=== PATIENT | female | born 1940 | race Caucasian/White ===

== ENCOUNTER 2017-01-19 18:57 | Inpatient (IN) | payer MEDICARE ==
[~2017-01-19] VITALS: Ht 160 cm; Wt 88.5 kg
[~2017-01-19 18:57] MED LIST: AMLO5TAB2 PO; GABA600T PO; HYDR-3326 PO; WARF3TAB6 PO
--- NOTE | 2017-01-19 19:15 | NUR ---
PT BIB RA FROM HOME C/O "FRACTURED LEFT HIP" S/P GLF AT HOME FROM WHEELCHAIR. PEDAL PULSES PRESENT. ZULY +4 PITTING EDEMA IN LOWER EXTREMITIES. NAD NOTED. DENIES PAIN EXCEPT UPON MOVING. PT REPORTS SHE CANNOT MOVE L LEG HERSELF AND CANNOT AMBULATE. NO OTHER COMPLAINTS. IN ER BED 09.
[2017-01-19 19:29] LABS: BASOPHILS # (AUTO) 0.1 /CMM (0.0-0.2); BASOPHILS % (AUTO) 0.6 % (0.0-2.0); EOSINOPHILS # (AUTO) 0.2 /CMM (0.0-0.7); EOSINOPHILS % (AUTO) 2.4 % (0.0-6.0); HEMATOCRIT 43 % (33-45); HEMOGLOBIN 14.2 g/dL (11.5-14.8); LYMPHOCYTES # (AUTO) 1.4 /CMM (0.8-4.8); LYMPHOCYTES % (AUTO) 15.2 % (20.0-44.0); MEAN CORPUSCULAR HEMOGLOBIN 40 PG (26.0-33.0); MEAN CORPUSCULAR HGB CONC 33 g/dl (31.0-36.0); MEAN CORPUSCULAR VOLUME 120 fL (82-100); MONOCYTES # (AUTO) 0.9 /CMM (0.1-1.30); MONOCYTES % (AUTO) 9.7 % (2.0-12.0); NEUTROPHILS # (AUTO) 6.7 /CMM (1.8-8.9); NEUTROPHILS % (AUTO) 72.1 % (43.0-81.0); PLATELET COUNT (AUTO) 186 /CMM (150-450); RDW COEFFICIENT OF VARIATION 14.3 (11.5-15.0); RED BLOOD CELL COUNT(AUTO) 3.57 MIL/uL (4.0-5.2); WHITE BLOOD COUNT (AUTO) 9.3 K/uL (4.3-11.0)
[2017-01-19] MEDS ORDERED: ONDANSETRON HCL/PF 4 MG/2 ML VIAL IVP ONE (19:30)
[2017-01-19] MEDS ORDERED: MORPHINE SULFATE INJ 2 MG/ML DISP.SYRIN IV ONE (19:30)
--- NOTE | 2017-01-19 19:32 | NUR ---
pt denies need for pain medication at this time. denies pain when at rest. transported to [facility] in stable condition via stretcher
[2017-01-19 19:40] LABS: CALCIUM, SERUM 8.9 mg/dL (8.5-10.1); CREATININE 0.5 mg/dL (0.6-1.3)
[2017-01-19 19:44] LABS: INR 2.42 (0.87-1.13); PROTHROMBIN TIME 26.4 SECS (9.5-12.7)
[2017-01-19] MEDS ORDERED: ONDANSETRON HCL/PF 4 MG/2 ML VIAL ONE (20:00)
[2017-01-19] MEDS ORDERED: MORPHINE SULFATE INJ 4 MG/ML DISP.SYRIN ONE (20:00)
--- NOTE | 2017-01-19 20:14 | NUR ---
ARTUR KHAN AT BEDSIDE
--- NOTE | 2017-01-19 20:15 | NUR ---
CALLED HIGHWAY MAINTENANCE WORKER ORTHO.
[2017-01-19 20:44] LABS: EOSINOPHILS % (MANUAL) 2 % (0-4); LYMPHOCYTES % (MANUAL) 16 % (16-48); MONOCYTES % (MANUAL) 4 % (0-11.0); NEUTROPHILS % (MANUAL) 78 (42-76); PLATELET ESTIMATE ADEQUATE
--- NOTE | 2017-01-19 20:44 | NUR ---
REPORT CALLED TO MS RN. PT READY FOR TRANSPORT TO 2ND FLOOR.
[2017-01-19 21:00] VITALS: BP 100/60
[2017-01-19] MEDS ORDERED: ACETAMINOPHEN 325 MG TABLET PO PRN (21:00)
[2017-01-19] MEDS ORDERED: MORPHINE SULFATE INJ 2 MG/ML DISP.SYRIN IV PRN (21:00)
[2017-01-19] MEDS ORDERED: ZOLPIDEM TARTRATE 5 MG TABLET PO PRN (21:00)
[2017-01-19] MEDS ORDERED: Z GUARD REMEDY 2 OZ OINT TP PRN (21:00)
[2017-01-19] MEDS ORDERED: MAGNESIUM HYDROXIDE 30 ML UDC PO PRN (21:00)
[2017-01-19] MEDS ORDERED: ONDANSETRON HCL/PF 4 MG/2 ML VIAL IVP PRN (21:00)
[2017-01-19] MEDS ORDERED: MAG HYDROX/AL HYDROX/SIMETH 30 ML UDC PO PRN (21:00)
--- NOTE | 2017-01-19 21:00 | NUR ---
MS MUSIC EDUCATION DIRECTOR NOTES ADMITTED THIS 76 Y.O. FEMALE PER BERNADETTE FROM ER UNDER THE SERVICE ARTUR TRUJILLO,WITH DIAGNOSIS OF LEFT HIP SUB TROCHANTERIC FRACTURE,C/O ACUTE LEFT HIP PAIN,CLAIMED SHE BUMP HER LEFT HIP HARD ON THE WALL,NO FALL.NON AMBULATORY,WHEELCHAIR BOUND,LEAVES ALONE AND JUST BEING FOLLOWED BY NEIGHBOR,HELP TO GET OUT OF BED TO WHEELCHAIR IN THE MORNING.ALERT,ORIENTED X3-4,ABLE TO VERBALIZED NEEDS,WITH LOTS OF SKIN ISSUES,SEE SKIN ASSESSMENT.BILATERAL FOOT WITH +3-4 EDEMA NOTED.SALINE LOCK LEFT AC INTACT AND PATENT.INCONTINENT OF URINE.STILL ABLE TO FEEL TOUCH ON BOTH LOWER EXTREMITIES,ABLE TO WIGGLE TOES.SHE'S ON VEGAN DIET,DENIES ANY EPISODE OF ASPIRATION.WILL CONTINUE TO MONITOR STATUS.CALL LIGHT IN REACH,NEEDS ANTICIPATED.
[2017-01-19] MEDS ORDERED: IV SET PRIMARY PUMP SET 1 EA INFUS.SET MC ONE (21:40)
[2017-01-19] MEDS ORDERED: PANTOPRAZOLE 40 MG VIAL ONE (21:44)
--- NOTE | 2017-01-19 21:45 | NUR ---
MS RN NOTES STARTED ON NS 1LITER AT 75ML/HR RATE INFUSING VIA IV PUMP.
--- NOTE | 2017-01-19 21:45 | NUR ---
MS RN NOTES STARTED ON PROTONIX 4OMG IVP ORDERED.INSTRUCTED NPO ORDERED.
[2017-01-19] MEDS: IV NS 0.9% 1,000 ML IV PRN (21:46)
[2017-01-19] MEDS: PANTOPRAZOLE 40 MG VIAL IV SCH (21:48)
[2017-01-19] MEDS: MORPHINE SULFATE INJ 2 MG/ML DISP.SYRIN IV PRN (23:33)
--- NOTE | 2017-01-19 23:33 | NUR ---
MS RN NOTES PAIN MANAGEMENT C/O LEFT HIP PAIN 7/10 ON PAIN SCALE,MEDICATED WITH MORPHINE 2MG IVP ORDERED
[2017-01-20] VITALS (11 sets, daily range): BP systolic 126–149; BP diastolic 69–83
--- NOTE | 2017-01-20 01:00 | NUR ---
MS RN NOTES SLEEPING,KEPT WARM AND COMFORTABLE.
--- NOTE | 2017-01-20 05:36 | NUR ---
MS RN NOTES GOT AN ORDER FROM TACOMA ACNP,TO INSERT LIU CATHETER DUE TO INABILITY TO TURN FROM SIDE TO SIDE FOR DIAPER CHANGE DUE TO LEFT SUBTROCHANTERIC FRACTURE. EXPLAINED PROCEDURE TO PATIENT BUT REFUSED.EXPLAINED RISK AND BENEFITS BUT STILL REFUSED.
--- NOTE | 2017-01-20 05:45 | NUR ---
MS RN NOTES MORNING CARE RENDERED,TOLERATED WELL.
[2017-01-20] MEDS: MORPHINE SULFATE INJ 2 MG/ML DISP.SYRIN IV PRN ×5 (06:02→23:52)
--- NOTE | 2017-01-20 06:02 | NUR ---
MS RN NOTES PAIN MANAGEMENT C/O LEFT HIP PAIN 7/10 ON PAIN SCALE,MEDICATED WITH MORPHINE 2MG IVP ORDERED.WILL MONITOR FOR RELIEF.
--- NOTE | 2017-01-20 06:13 | NUR ---
MS RN NOTES KEPT NPO TILL SEEN BY ORTHOPEDIST.PAIN MANAGEMENT TOLERATED WELL AND EFFECTIVE.ALL NEEDS ATTENDED,CALL LIGHT IN REACH,BED ON LOWEST POSITION AND LOCKED.WILL ENDORSE TO DAY NURSE FOR JAY.
[2017-01-20 06:49] LABS: BASOPHILS % (AUTO) 0.6 % (0.0-2.0); EOSINOPHILS # (AUTO) 0.3 /CMM (0.0-0.7); EOSINOPHILS % (AUTO) 4.6 % (0.0-6.0); HEMATOCRIT 37 % (33-45); HEMOGLOBIN 12.3 g/dL (11.5-14.8); LYMPHOCYTES # (AUTO) 1.6 /CMM (0.8-4.8); LYMPHOCYTES % (AUTO) 22.1 % (20.0-44.0); MEAN CORPUSCULAR HEMOGLOBIN 40 PG (26.0-33.0); MEAN CORPUSCULAR HGB CONC 33 g/dl (31.0-36.0); MEAN CORPUSCULAR VOLUME 121 fL (82-100); MONOCYTES % (AUTO) 13.2 % (2.0-12.0); NEUTROPHILS # (AUTO) 4.4 /CMM (1.8-8.9); NEUTROPHILS % (AUTO) 59.5 % (43.0-81.0); PLATELET COUNT (AUTO) 190 /CMM (150-450); RDW COEFFICIENT OF VARIATION 15.1 (11.5-15.0); RED BLOOD CELL COUNT(AUTO) 3.03 MIL/uL (4.0-5.2); WHITE BLOOD COUNT (AUTO) 7.4 K/uL (4.3-11.0)
--- NOTE | 2017-01-20 07:10 | NUR ---
MS RN NOTES RECEIVED PATIENT IN BED, AWAKE. A/O X3. ON OXYGEN AT 3L/MIN VIA NC, NO SOB NOTED. PATIENT IS ON NPO STATUS, POSSIBLE SURGERY TODAY FOR LEFT HIP FRACTURE. APPEARS COMFORTABLE IN BED, NO C/O PAIN AT THIS TIME. CALL LIGHT WITHIN REACH. BED LOW AND LOCKED, SIDE RAILS UP X2. WILL CONT TO MONITOR.
--- NOTE | 2017-01-20 07:20 | NUR ---
RECEIVED PHONE CALLS FROM DR. LOZADA. PATIENT TO BE SCHEDULED SURGERY EARLY TODAY. WILL INFORM [facility] TO CLEAR PATIENT FOR SURGERY.
[2017-01-20 07:24] LABS: CALCIUM, SERUM 8.2 mg/dL (8.5-10.1); CREATININE 0.2 mg/dL (0.6-1.3); MAGNESIUM 1.5 mg/dL (1.8-2.4); POTASSIUM 3.9 mmol/L (3.5-5.1)
[2017-01-20] MEDS ORDERED: PANTOPRAZOLE 40 MG TABLET.DR PO SCH (07:30)
--- NOTE | 2017-01-20 07:30 | NUR ---
DR. MIA FISCHER STATED HE WILL SEE THE PATIENT. PER PATIENT SHE WANTS TO SPEAK WITH DR. LOZADA(ORTHO) ALSO.
--- NOTE | 2017-01-20 08:14 | NUR ---
PATIENT IS SEEN BY DR. LOZADA TODAY. MD SPEAK TO THE PATIENT. PER MD HE WILL COMMUNICATE WITH THE CARE TEAM.
[2017-01-20] MEDS ORDERED: CITA40TA11 PO (08:27)
[2017-01-20] MEDS ORDERED: WARF2.5T6 PO (08:27)
[2017-01-20] MEDS ORDERED: IPRA3AMP IH (08:27)
[2017-01-20 08:30] LABS: ANISOCYTOSIS 3+; BAND % (MANUAL) 1 % (0.0-5.0); EOSINOPHILS % (MANUAL) 6 % (0-4); LYMPHOCYTES % (MANUAL) 21 % (16-48); MONOCYTES % (MANUAL) 8 % (0-11.0); NEUTROPHILS % (MANUAL) 64 (42-76); PLATELET ESTIMATE ADEQUATE
--- NOTE | 2017-01-20 09:09 | NUR ---
PATIENT IS SEEN BY DR. JANA KRISHNAMURTHY TODAY. FOR CARDIO CONSULT PRIOR POSSIBLE SURGERY TODAY. WILL INFORM DR. JANA KRISHNAMURTHY AFTER CARDIO CONSULT.
--- NOTE | 2017-01-20 10:01 | NUR ---
EKG REPORTED TO
[2017-01-20] MEDS ORDERED: BACITRACIN 50000 UNITS/VIAL ONE (10:27)
[2017-01-20] MEDS ORDERED: BUPIVACAINE 0.5 % PF 150 MG/30 ML VIAL ONE (10:27)
[2017-01-20] MEDS: IV NS 0.9% 1,000 ML IV PRN (10:32)
[2017-01-20] MEDS ORDERED: PLATELET IV SET 1 EA INFUS.SET MC ONE (10:37)
--- NOTE | 2017-01-20 11:11 | NUR ---
BLOOD DRAWN FOR PT/INR STAT. PATIENT IN BED, V/S TAKEN AND RECORDED. PATIENT APPEARS COMFORTABLE IN BED, NO SOB NOTED. FIRST UNIT FFP ADMINISTERED. WILL CONT TO MONITOR PATIENT CLOSELY.
[2017-01-20 11:34] LABS: INR 2.01 (0.87-1.13); PROTHROMBIN TIME 22.5 SECS (9.5-12.7)
--- NOTE | 2017-01-20 11:39 | NUR ---
V/S REMAINS STABLE. 2ND FPP ADMINISTERED. WILL CONT TO MONITOR PATIENT CLOSELY.
--- NOTE | 2017-01-20 12:06 | NUR ---
STILL ELEVATED INR 2.01 PT 22.5. PL[address]MA INFUSING. DR. LOZADA SPOKE TO THE PATIENT, PER MD SURGERY WOULD BE ON SUNDAY AND PATIENT CAN HAVE DIET NOW. NOTIFIED DR. JANA KRISHNAMURTHY.
--- NOTE | 2017-01-20 12:55 | NUR ---
V/S TAKEN AND RECORDED. PATIENT REMAINS STABLE. 3RD UNIT OF PLASMA ADMINISTERED.
--- NOTE | 2017-01-20 13:37 | NUR ---
V/S REMAINS STABLE 4TH UNIT (LAST BAG) OF PLASMA ADMINISTERED. WILL CONT TO MONITOR PATIENT. CLOSELY.
[2017-01-20] MEDS ORDERED: SECONDARY IV SET 1 EA INFUS.SET MC ONE (13:50)
--- NOTE | 2017-01-20 14:03 | NUR ---
END ON FFP TRANSFUSION, PATIENT TOLERATED WELL WITH NO ADVERSE SIDE EFFECT NOTED. WILL CONT TO MONITOR.
[2017-01-20] MEDS: Magnesium 1GM/D5W 100ML PREMIX 100 ML IV SCH ×2 (14:30→15:30)
--- NOTE | 2017-01-20 15:15 | NUR ---
PT STATES SHE HAS NO LT FOOT PAIN. SHE STATES SHE DOES NOT NEED FOOT X-RAY. SHE SAYS HER LT HIP IS HURTING. PT'S NURSE WAS INFORMED.
--- NOTE | 2017-01-20 18:31 | NUR ---
RECEIVED PHONE CALL FROM DR. LOZADA, ORDERED TO CHECK INR NOW THEN CALL HIM WITH RESULT, NOTED AND ACKNOWLEDGED.
--- NOTE | 2017-01-20 18:52 | NUR ---
MS RN CLOSING NOTES PATIENT IN BED, APPEARS COMFORTABLE, NOT IN DISTRESS. NO C/O PAIN AT THIS TIME. IV IN LEFT AC G18 PATENT AND INTACT, FLUSHES WELL. IV NS INFUSING AT 75ML/HR, PATIENT TOLERATING WELL. PATIENT WILL BE NPO MN, FOR SURGERY IN AM UNDER DR. LOZADA. CONSENT SIGNED AND PLACE IN THE CHART. WILL ENDORSE TO WIRE COATING OPERATOR METAL RN FOR CONTINUITY OF CARE.
--- NOTE | 2017-01-20 19:10 | NUR ---
MS RN NOTES: PATIENT ON NC 3LPM AND IS TOLERATING WELL. WILL CONTINUE TO MONITOR PT.
--- NOTE | 2017-01-20 19:10 | NUR ---
MS LIZZETH OPENING NOTES: RECEIVED PATIENT IN BED AWAKE WITH HOB ELEVATED. PT A/O X3. PT REPORTED OF R SHOULDER PAIN 04/09. CALL LIGHT WITHIN PATIENT'S REACH. BED KEPT IN LOCKED, LOWEST POSITION, AND SIDE RAILS X2 UP. IV ON L AC #18 AND IS PATENT AND INTACT. KEPT SKIN CLEAN, DRY, AND COMFORTABLE. PT REFUSED LIU CATHETER INSERTION. EDUCATION WAS PROVIDED TO THE PATIENT BUT STILL REFUSED. INFORMED PATIENT THAT SHE IS NPO POST MIDNIGHT. WILL CONTINUE TO MONITOR PT. Addendum: 01/20/17 at 4692 by ADELE ASTUDILLO RN WAS ENDORSED FROM DAY SHIFT NURSE THAT PATIENT RECEIVED 4 UNITS OF FRESH FROZEN PLASMA.
[2017-01-20 19:11] LABS: INR 1.24 (0.87-1.13); PROTHROMBIN TIME 13.5 SECS (9.5-12.7)
--- NOTE | 2017-01-20 19:25 | NUR ---
MS RN NOTES: CONTACTED DR LOZADA AT [phone] RELAYED RESULTS OF LATEST PT INR, PT 13.5 AND INR 1.24, MD STATED "OKAY". WILL HAVE SURGERY TOMORROW, OBTAIN CONSENT FOR LEFT HIP INTRAMEDULLAR NIDA, NPO POST MN.
--- NOTE | 2017-01-20 19:26 | NUR ---
MS RN NOTES: CONTACTED PT'S DPOA CHELSEY DÍAZ, OBTAINED CONSENT FOR LEFT HIP INTRAMEDULLARY NIDA, INFORMED SURGERY FOR AM BY DR LOZADA, PT'S DPOA GIVING FULL CONSENT FOR THE PROCEDURE WELL BLOOD TRANSFUSION, ANESTHESIA. TELEPHONE CONSENT WITNESS/COSIGNED BY MERCY MOREAU
--- NOTE | 2017-01-20 19:50 | NUR ---
MS RN NOTES: PATIENT REFUSES TO BE TURNED AND REPOSITIONED AT THIS TIME.
--- NOTE | 2017-01-20 19:50 | NUR ---
MS RN NOTES: PATIENT COMPLAINED OF 7/10 PAIN ON R SHOULDER. MORPHINE 2MG IV WAS GIVEN. WILL CONTINUE TO MONITOR PT.
[2017-01-20] MEDS: PANTOPRAZOLE 40 MG VIAL IV SCH (20:50)
--- NOTE | 2017-01-20 21:56 | NUR ---
MS RN NOTES: PATIENT WAS GIVEN TYLENOL 650MG PO. WILL CONTINUE TO MONITOR PT.
--- NOTE | 2017-01-20 23:52 | NUR ---
MS RN NOTES: PT COMPLAINED OF 6/10 R SHOULDER PAIN. BP WAS 121/79 HR 71, RR 16, AND PULSE OX WAS 95%. PATIENT WAS GIVEN MORPHINE 2MG IV. WILL CONTINUE TO MONITOR PT.
[2017-01-21] VITALS (14 sets, daily range): BP systolic 123–157; BP diastolic 65–91
--- NOTE | 2017-01-21 | NUR ---
MS RN NOTES: PT REFUSED TO BE REPOSITION AT THIS TIME, EDUCATION PROVIDED TO THE PT, REGARDING RISK AND BENEFITS
--- NOTE | 2017-01-21 02:00 | NUR ---
MS RN NOTES: PT REFUSED TO BE REPOSITION EDUCATE PT REGARDING RISK AND BENEFITS
[2017-01-21] MEDS: IV NS 0.9% 1,000 ML IV PRN (02:30)
--- NOTE | 2017-01-21 04:00 | NUR ---
MS RN NOTES: PT REFUSED TO BE REPOSITION AT THIS TIME, EDUCATION PROVIDED TO THE PT, REGARDING RISK AND BENEFITS
[2017-01-21] MEDS: MORPHINE SULFATE INJ 2 MG/ML DISP.SYRIN IV PRN ×4 (06:10→23:16)
--- NOTE | 2017-01-21 06:10 | NUR ---
MS RN NOTES: PT COMPLAINED OF 6/10 R SHOULDER PAIN. BP WAS 154/91 HR 79, RR 18, AND PULSE OX 95%. PT RECEIVED MORPHINE 2MG IV. WILL CONTINUE TO MONITOR.
--- NOTE | 2017-01-21 06:48 | NUR ---
MS RN CLOSING NOTES: ALL NEEDS WERE ATTENDED. PATIENT IN BED ASLEEP. NO SIGNS OR SYMPTOMS OF DISTRESS NOTED. NO SOB NOTED. PT REFUSED LIU CATHETER. EXPLAINED RISKS AND BENEFITS AND PT STILL REFUSED. IV IN LEFT AC G18 AND IS PATENT AND INTACT. IV NS INFUSING AT 75ML/HR AND PATIENT TOLERATING WELL. PT ON 3LPM VIA NC AND IS TOLERATING WELL. PATIENT IS NPO SINCE MIDNIGHT FOR SURGERY THIS AM UNDER DR. LOZADA. CONSENT SIGNED AND PLACED IN THE CHART. BED KEPT IN LOCKED, LOWEST POSITION, AND SIDE RAILS X2 UP. KEPT CLEAN, DRY, AND COMFORTABLE. WILL ENDORSE TO DAY SHIFT NURSE FOR CONTINUITY OF CARE.
[2017-01-21 07:10] LABS: INR 1.24 (0.87-1.13); PROTHROMBIN TIME 13.5 SECS (9.5-12.7)
[2017-01-21 07:27] LABS: CALCIUM, SERUM 8.3 mg/dL (8.5-10.1); CREATININE 0.2 mg/dL (0.6-1.3); MAGNESIUM 1.8 mg/dL (1.8-2.4); POTASSIUM 3.8 mmol/L (3.5-5.1)
--- NOTE | 2017-01-21 07:30 | NUR ---
MS/skimmer reverberatory Patient taken to operating room, chart with patient.
[2017-01-21] MEDS ORDERED: BACITRACIN 50000 UNITS/VIAL ONE ×2 (07:55)
[2017-01-21] MEDS ORDERED: BUPIVACAINE 0.5 % PF 150 MG/30 ML VIAL ONE (07:55)
[2017-01-21] MEDS ORDERED: ALBUTEROL FS 2.5 MG/3 ML VIAL.NEB ONE ×2 (08:02→10:49)
[2017-01-21] MEDS ORDERED: CLINDAMYCIN 900 MG/6 ML VIAL ONE (08:06)
[2017-01-21] MEDS ORDERED: MIDAZOLAM HCL 2 MG/2ML VIAL ONE (08:06)
[2017-01-21] MEDS ORDERED: FENTANYL PF 100MCG/2ML AMPUL ONE (08:06)
[2017-01-21] MEDS ORDERED: IPRATROPIUM NEB FS 0.5 MG/2.5 ML AMPUL.NEB ONE ×2 (08:11→10:49)
[2017-01-21] MEDS: ALBUTEROL FS 2.5 MG/3 ML VIAL.NEB NEB PRN ×2 (08:30→10:59)
[2017-01-21] MEDS: IPRATROPIUM NEB FS 0.5 MG/2.5 ML AMPUL.NEB NEB PRN ×2 (08:30→10:59)
[2017-01-21] MEDS ORDERED: THROMBIN (BOVINE) 5,000 UNITS VIAL TP ONE (09:15)
[2017-01-21] MEDS ORDERED: CELLULOSE,OXIDIZED 1 EACH EACH MC ONE (09:15)
[2017-01-21] MEDS ORDERED: GELATIN SPONGE,ABSORBABLE 1 EA SPONGE TP ONE (09:15)
[2017-01-21] MEDS ORDERED: CELLULOSE,OXIDIZED 1 EA PACK MC ONE (09:16)
[2017-01-21] MEDS ORDERED: BLOOD IV SET 1 EA INFUS.SET MC ONE ×2 (09:20→11:16)
[2017-01-21] MEDS ORDERED: TRANEXAMIC ACID 3,000 MG in SODIUM CHLORIDE IRRIG SOLUTION 70 ML IR ONE (09:30)
--- NOTE | 2017-01-21 09:50 | NUR ---
MS/RN Labs Morning labs reviewed: -PT 13.5 -INR 1.24 -PTT 32
[2017-01-21] MEDS ORDERED: MEPERIDINE HCL/PF 50 MG/ML DISP.SYRIN ONE (10:24)
--- NOTE | 2017-01-21 11:15 | NUR ---
MS/RN Back from OR Patient received back from OR. Vital signs upon return stable, saturation on 3l 95%, patient encouraged to take deep breaths to enable proper lung expansion. HHN X2 administered in recovery room. Surgical incision clean and dry, no oozing noted. One unit of PRBC transfused during surgery, one further unit to be given and then labs to be drawn for H&H. if Hb <9, further unit of blood to be ordered. Patient reoriented to surroundings, call light within reach, will continue to monitor.
[2017-01-21] MEDS ORDERED: IV NS 0.9% 250 ML IV ONE ×2 (11:17→21:21)
--- NOTE | 2017-01-21 11:45 | NUR ---
MS/RN Blood bank Second unit of blood ready to be transfused. IV normal saline hung in preparation.
--- NOTE | 2017-01-21 12:15 | NUR ---
MS/RN Blood transfusion One unit blood transfusion in progress. Blood verified by two RN's. Vital signs recorded as per protocol, all within normal range for patient. Will continue to monitor.
--- NOTE | 2017-01-21 12:45 | NUR ---
MS/RN Vital signs Vital signs remain stable throught out blood transfusion thus far, will continue to monitor.
--- NOTE | 2017-01-21 15:00 | NUR ---
MS/RN Home medications Home medication list sent to Dr Nguyen to obtain order to continue home meds. Await response.
--- NOTE | 2017-01-21 15:15 | NUR ---
MS/RN Dr Nguyen Call received from Dr Nguyen - CBC to be ordered post transfusion and order given for bi-pap at night. Nursing accounting supervisor called for TD bed.
--- NOTE | 2017-01-21 15:53 | NUR ---
MS/RN Blood transfusion completed Blood transfusion completed, vital signs remained stable throughout.
--- NOTE | 2017-01-21 15:55 | NUR ---
MS/RN Bed assignment Per nursing melt house supervisor, patient to be transferred to Tele TD, room 107 after change of shift.
[2017-01-21 16:10] LABS: BASOPHILS % (AUTO) 0.4 % (0.0-2.0); EOSINOPHILS # (AUTO) 0.3 /CMM (0.0-0.7); EOSINOPHILS % (AUTO) 3.4 % (0.0-6.0); HEMATOCRIT 36 % (33-45); HEMOGLOBIN 11.8 g/dL (11.5-14.8); LYMPHOCYTES # (AUTO) 1.2 /CMM (0.8-4.8); LYMPHOCYTES % (AUTO) 15.1 % (20.0-44.0); MEAN CORPUSCULAR HEMOGLOBIN 40 PG (26.0-33.0); MEAN CORPUSCULAR HGB CONC 33 g/dl (31.0-36.0); MEAN CORPUSCULAR VOLUME 122 fL (82-100); MONOCYTES # (AUTO) 1.1 /CMM (0.1-1.30); MONOCYTES % (AUTO) 13.7 % (2.0-12.0); NEUTROPHILS # (AUTO) 5.3 /CMM (1.8-8.9); NEUTROPHILS % (AUTO) 67.4 % (43.0-81.0); PLATELET COUNT (AUTO) 182 /CMM (150-450); RDW COEFFICIENT OF VARIATION 15.3 (11.5-15.0); RED BLOOD CELL COUNT(AUTO) 2.93 MIL/uL (4.0-5.2); WHITE BLOOD COUNT (AUTO) 7.8 K/uL (4.3-11.0)
[2017-01-21] MEDS ORDERED: IPRATROPIUM NEB FS 0.5 MG/2.5 ML AMPUL.NEB NEB PRN (17:30)
[2017-01-21] MEDS ORDERED: Medication Not On Formulary EA (Ipratropium/Albuterol Sulfate (Duoneb 2.5-0.5 Mg/3 Ml So IH PRN (17:30)
[2017-01-21] MEDS ORDERED: HYDROCODONE/APAP 5/325MG 1 EACH TABLET PO PRN (17:30)
[2017-01-21] MEDS ORDERED: ALBUTEROL FS 2.5 MG/3 ML VIAL.NEB NEB PRN (17:30)
[2017-01-21 17:52] LABS: ANISOCYTOSIS 1+; BAND % (MANUAL) 1 % (0.0-5.0); EOSINOPHILS % (MANUAL) 4 % (0-4); LYMPHOCYTES % (MANUAL) 10 % (16-48); MONOCYTES % (MANUAL) 12 % (0-11.0); NEUTROPHILS % (MANUAL) 73 (42-76); PLATELET ESTIMATE ADEQUATE
--- NOTE | 2017-01-21 18:22 | NUR ---
MS/RN End note Lab called to enquire as to the results of CBC and H&H as order history is showing complete but no results are showing in emr. Per Effie in lab, blood was not drawn, as CBC was not drawn in morning, and they had an extra tube of blood, the afternoon CBC was run using blood from morning. Explained to tech that the reason for requesting this test was to check H&H following surgery, was told that floor should of been called to make sure that this was okay. Floor was not called, therefore test reordered as stat. Awaiting tech to draw blood and results. Vital signs have remained stable post op, now taking oral fluids and diet. IV heplocked. Will endorse to brine tank operator and transfer to TD.
[2017-01-21 18:36] LABS: BASOPHILS # (AUTO) 0.1 /CMM (0.0-0.2); BASOPHILS % (AUTO) 0.4 % (0.0-2.0); HEMATOCRIT 34 % (33-45); LYMPHOCYTES # (AUTO) 0.7 /CMM (0.8-4.8); LYMPHOCYTES % (AUTO) 5.6 % (20.0-44.0); MEAN CORPUSCULAR HEMOGLOBIN 39 PG (26.0-33.0); MEAN CORPUSCULAR HGB CONC 35 g/dl (31.0-36.0); MEAN CORPUSCULAR VOLUME 111 fL (82-100); MONOCYTES # (AUTO) 1.2 /CMM (0.1-1.30); MONOCYTES % (AUTO) 9.4 % (2.0-12.0); NEUTROPHILS # (AUTO) 10.6 /CMM (1.8-8.9); NEUTROPHILS % (AUTO) 84.6 % (43.0-81.0); PLATELET COUNT (AUTO) 156 /CMM (150-450); RDW COEFFICIENT OF VARIATION 22.4 (11.5-15.0); RED BLOOD CELL COUNT(AUTO) 3.09 MIL/uL (4.0-5.2); WHITE BLOOD COUNT (AUTO) 12.6 K/uL (4.3-11.0)
--- NOTE | 2017-01-21 19:30 | NUR ---
MS/RN OPENING NOTES PT AWAKE, A/OX3. CURRENTLY ON 3LPM O2 VIA NC, NO S/S OF DISTRESS. DENIES SOB AT THIS TIME. PT TO BE TRANSFERRED TO [facility] FOR BIPAP. PT AWARE. NOTES PAIN TO BE 5/10 TO LEFT HIP. BREATHING EVEN AND UNLABORED. BED IN LOW/LOCKED POSITION WITH CALL LIGHT IN REACH. WILL CONTINUE TO MONITOR
--- NOTE | 2017-01-21 20:20 | NUR ---
MS/RN NOTES REPORT GIVEN TO NURSE IN [facility] FOR TRANSFER.
--- NOTE | 2017-01-21 20:49 | NUR ---
MS/RN NOTES PT TRANSFERRED TO [facility] ROOM 107 WITH ASSISTANT PROFESSOR OF PHILOSOPHY IN STABLE CONDITION. PT RECEIVED BY RNJOSÉ MIGUEL. BELONGINGS AND CHART SENT DOWN WITH PT.
[2017-01-21] MEDS: HYDROCODONE/APAP 5/325MG 1 EACH TABLET PO PRN (21:14)
[2017-01-21] MEDS: PANTOPRAZOLE 40 MG VIAL IV SCH (21:14)
[2017-01-21] MEDS: CLINDAMYCIN 900 MG in IV D5W 50 ML IV SCH (21:14)
[2017-01-21] MEDS ORDERED: IV SET PRIMARY PUMP SET 1 EA INFUS.SET MC ONE (21:21)
[2017-01-21] MEDS ORDERED: SECONDARY IV SET 1 EA INFUS.SET MC ONE (21:21)
--- NOTE | 2017-01-21 23:52 | NUR ---
PLACED ON NOC BIPAP. RN NOTIFIED.
[2017-01-22] VITALS: BP 120/82
[2017-01-22 04:00] VITALS: BP 151/80
--- NOTE | 2017-01-22 04:15 | NUR ---
PT TAKEN OFF BIPAP PER REQUEST. PLACED ON 3L NC
[2017-01-22] MEDS: MORPHINE SULFATE INJ 2 MG/ML DISP.SYRIN IV PRN ×5 (04:29→21:46)
[2017-01-22 06:19] LABS: CALCIUM, SERUM 7.9 mg/dL (8.5-10.1); CREATININE 0.2 mg/dL (0.6-1.3); POTASSIUM 3.8 mmol/L (3.5-5.1)
[2017-01-22] MEDS: HYDROCODONE/APAP 5/325MG 1 EACH TABLET PO PRN ×4 (06:51→22:36)
[2017-01-22 08:00] VITALS: BP 145/77
[2017-01-22] MEDS: CLINDAMYCIN 900 MG in IV D5W 50 ML IV SCH (08:54)
[2017-01-22] MEDS: AMLODIPINE BESYLATE 5 MG TABLET PO SCH (08:55)
[2017-01-22] MEDS ORDERED: CITALOPRAM HYDROBROMIDE 20 MG TABLET PO SCH (09:00)
--- NOTE | 2017-01-22 09:00 | NUR ---
Refused Repositioning Patient complaining of pain on the right knee and refusing repositioning. Paged Hair Lopez regarding patient complain of right knee pain. Awaits response.
[2017-01-22 12:00] VITALS: BP 138/69
--- NOTE | 2017-01-22 13:00 | NUR ---
Morphine 0830 Morphine done 2mg given but missed charted.
--- NOTE | 2017-01-22 13:36 | NUR ---
WOUND CARE CONSULT: PT REFUSED SKIN ASSESSMENT. PT ON MICHOACANO ISOFLEX LOW AIRLOSS BED. PT TO BE TURNED AND REPOSITIONED EVERY 2 HRS PT CONDITION PERMITS, HEELS FLOATED. DISCUSSED SKIN PROTECTION WITH NURSING STAFF. DAVID SCORE IS 11. WILL SEE PT PT CONDITION PERMITS. MD IN AGREEMENT WITH PLAN OF CARE.
[2017-01-22 16:00] VITALS: BP_SYST 137; BP_DIAS 69; BP_DIAS 77
[2017-01-22] MEDS ORDERED: ENOXAPARIN SODIUM 40 MG/0.4 ML DISP.SYRIN SQ SCH (17:00)
[2017-01-22 17:12] LABS: INR 1.47 (0.87-1.13); PROTHROMBIN TIME 16.1 SECS (9.5-12.7)
[2017-01-22] MEDS: WARFARIN SODIUM 5 MG TABLET PO SCH (17:54)
[2017-01-22 20:00] VITALS: BP 138/76
--- NOTE | 2017-01-22 20:33 | NUR ---
received pt from day shift, a/o x4, follows commands, A fib, controlled, on 3L NC, sat well, lungs congested, BL foot pitting edema, tolerates diet, f/c low output, MD aware, BL leg DVT on Coumadin, no bleeding noted, L leg s/p ORIF, dressing intact, no s/s of infection noted, pt turned and repositioned.
[2017-01-22] MEDS: PANTOPRAZOLE 40 MG VIAL IV SCH (21:45)
[2017-01-22] MEDS ORDERED: IV NS 0.9% 250 ML IV ONE (23:35)
[2017-01-23] VITALS (7 sets, daily range): BP systolic 108–141; BP diastolic 38–84
--- NOTE | 2017-01-23 04:15 | NUR ---
pt is resting in the bed, v/s stable, no pain, pt cleaned, changed and repositioned q2hrs.
[2017-01-23] MEDS: MORPHINE SULFATE INJ 2 MG/ML DISP.SYRIN IV PRN ×4 (05:41→19:49)
[2017-01-23 06:16] LABS: INR 1.68 (0.87-1.13); PROTHROMBIN TIME 18.6 SECS (9.5-12.7)
[2017-01-23 07:03] LABS: BASOPHILS # (AUTO) 0.1 /CMM (0.0-0.2); BASOPHILS % (AUTO) 0.8 % (0.0-2.0); EOSINOPHILS # (AUTO) 0.3 /CMM (0.0-0.7); EOSINOPHILS % (AUTO) 2.8 % (0.0-6.0); HEMATOCRIT 31 % (33-45); HEMOGLOBIN 10.2 g/dL (11.5-14.8); LYMPHOCYTES # (AUTO) 1.1 /CMM (0.8-4.8); LYMPHOCYTES % (AUTO) 10.2 % (20.0-44.0); MEAN CORPUSCULAR HEMOGLOBIN 37 PG (26.0-33.0); MEAN CORPUSCULAR HGB CONC 33 g/dl (31.0-36.0); MEAN CORPUSCULAR VOLUME 113 fL (82-100); MONOCYTES # (AUTO) 1.7 /CMM (0.1-1.30); MONOCYTES % (AUTO) 16.3 % (2.0-12.0); NEUTROPHILS # (AUTO) 7.2 /CMM (1.8-8.9); NEUTROPHILS % (AUTO) 69.9 % (43.0-81.0); PLATELET COUNT (AUTO) 158 /CMM (150-450); RDW COEFFICIENT OF VARIATION 22.4 (11.5-15.0); RED BLOOD CELL COUNT(AUTO) 2.75 MIL/uL (4.0-5.2); WHITE BLOOD COUNT (AUTO) 10.4 K/uL (4.3-11.0)
--- NOTE | 2017-01-23 07:30 | NUR ---
initial note resting in bed. NC 3L, o2 sat 90%, breathing even and unlabored. patient requesting to be flat in bed, refusing repositioning. educated patient on need to reposition, patient responded "it is too painful and not worth it". pain 07/10 R LE. tele monitor reading afib controlled. f/c patent, no complications. JUAN CARLOS midline patent, dressing cdi. discussed plan of care. call light in reach.
[2017-01-23 07:46] LABS: CALCIUM, SERUM 8.1 mg/dL (8.5-10.1); CREATININE 0.2 mg/dL (0.6-1.3); POTASSIUM 3.4 mmol/L (3.5-5.1)
[2017-01-23] MEDS: CITALOPRAM HYDROBROMIDE 20 MG TABLET PO SCH (08:19)
[2017-01-23] MEDS: HYDROCODONE/APAP 5/325MG 1 EACH TABLET PO PRN ×2 (08:19→22:01)
[2017-01-23] MEDS: AMLODIPINE BESYLATE 5 MG TABLET PO SCH (08:20)
[2017-01-23 09:17] LABS: ANISOCYTOSIS 3+; LYMPHOCYTES % (MANUAL) 13 % (16-48); MONOCYTES % (MANUAL) 11 % (0-11.0); NEUTROPHILS % (MANUAL) 76 (42-76); PLATELET ESTIMATE DECREASED
--- NOTE | 2017-01-23 09:49 | NUR ---
WOUND CARE CONSULT: PT ONLY ALLOWED LIMITED ASSESSMENT, REFUSING TO TURN FOR FULL SKIN ASSESSMENT. PT NOTED TO HAVE 4+ PITTING EDEMA TO LOWER EXTREMITIES. PT ON MICHOACANO ISOFLEX LOW AIRLOSS BED. PT TO BE TURNED AND REPOSITIONED EVERY 2 HRS PT CONDITION PERMITS, HEELS FLOATED. Z GUARD IN USE FOR SKIN FOLD/BUTTOCK PROTECTION. ALL SKIN PROTECTION MEASURES IN PLACE AND DISCUSSED WITH NURSING STAFF. WILL SEE PT PRN . IN AGREEMENT WITH PLAN OF CARE. SURGICAL DRESSINGS IN PLACE X 3 TO LEFT HIP AND THIGH. PT FOLLOWED BY ORTHO. Addendum: 01/23/17 at 0951 by ASHLEY BLISS Amended: Links added. Addendum: 01/23/17 at 1024 by ASHLEY BLISS DISCUSSED IMPORTANCE OF OFFLOADING (TURNING AND REPOSITIONING) WITH PT TO AVOID PRESSURE ULCERS BUT PT STATED " I DONT CARE IF I GET A BEDSORE. I HAVE HAD BEDSORES FOR YEARS" AND CONTINUED TO REFUSE TO BE TURNED IN BED.
--- NOTE | 2017-01-23 11:14 | NUR ---
Dr. Krishna gave verbal orders for Lovenox 1mg/kg SQ Q24hr, stop Lovenox if/when INR is 2.0 or greater, hold Coumadin for INR >2.5.
[2017-01-23] MEDS ORDERED: POTASSIUM CHLORIDE 20 MEQ TAB.PRT.SR PO SCH (13:30)
[2017-01-23] MEDS: ENOXAPARIN SODIUM 100 MG/ML DISP.SYRIN SQ SCH ×2 (13:46→22:02)
[2017-01-23] MEDS: WARFARIN SODIUM 5 MG TABLET PO SCH (16:49)
--- NOTE | 2017-01-23 19:31 | NUR ---
closing note patient remained stable this shift. breathing, vs and LOC wnl. endorsed to night nurse about pain management. patient refused adl care and repositioning this shift, endorsed to night nurse and informed dr. Roberts's JAVIER Arndt. educated patient on risk of bed sore, patient replied "i have had them my whole life, i am used to it" and continued to refuse care. L hip dressing changed by JAVIER Arndt, CDI. JUAN CARLOS midline no complications. f/c patent. call light in reach.
--- NOTE | 2017-01-23 19:54 | NUR ---
RN NOTES RECEIVED PX AWAKE, ALERT, ORIENTED X 3, ON NC AT 3 LPM SATURATING 94%, RT UA MIDLINE LINE PATENT, INTACT WITH CLEAN DRY DRESSING; LIU CATH TAPED TO THIGH TO BAG BY GRAVITY; (+) PARAPLEGIA, HYPOTONIC LOWER EXT WITH REDNESS AND EDEMA, FOOTOFFLOADED; WITH DRESSING ON LEFT HIP AREA, DRESSING CLEAN DRY INTACT; COMPLAINED OF LEFT HIP PAIN 8/10 MORPHINE GIVEN; EXPLAINED THE NEED TO TURN EVERY 2 HOURS AND TO HAVE PERICARE AND BACK CARE BUT PATIENT REFUSED; DENIED SOB, N/V, DIZZINESS, A FIB ON MONITOR HR AT 80'S. DISCUSSED PLAN OF CARE.
[2017-01-23] MEDS: PANTOPRAZOLE 40 MG VIAL IV SCH (20:00)
[2017-01-23 21:27] LABS: ABG BASE EXCESS 3.1 mmol/L; ABG OXYGEN SATURATION 93.6 % (92.0-98.5); ABG PCO2 50.3 mmHg (35.0-45.0); ABG PH 7.378 (7.350-7.450); ABG PO2 71.6 mmHg (75.0-100.0); ABG TOTAL HEMOGLOBIN 10.2 G/dL (12.0-16.0); AaDO2 97.7 mmHg; COHb 1.5 % (0.5-1.5); MetHb 0.5 % (0.0-1.5); O2Hb 91.7 % (94.0-97.0); SITE, ABG Left Radial
--- NOTE | 2017-01-23 22:17 | NUR ---
PT DOES NOT WANT TO WEAR BIPAP FOR NOW. RN AWARE. WILL CONTINUE TO MONITOR.
[2017-01-24] VITALS: BP 111/67
--- NOTE | 2017-01-24 00:15 | NUR ---
RN NOTES CONDITION AND NEURO STATUS UNCHANGED; DENIED PAIN, SOB, N/V; REFUSED TO BE TURNED DESPITE EDUCATION. O2 SAT 98%.
[2017-01-24] MEDS: MORPHINE SULFATE INJ 2 MG/ML DISP.SYRIN IV PRN ×3 (02:27→15:14)
[2017-01-24] MEDS: HYDROCODONE/APAP 5/325MG 1 EACH TABLET PO PRN ×3 (03:06→13:58)
[2017-01-24 04:00] VITALS: BP 121/66
--- NOTE | 2017-01-24 04:17 | NUR ---
RN NOTES PAIN NOW CONTROLLED 11/10; CLEANED AND CHANGED GOWN AND BED LINENS, TOLERATED TURNING IN BED, NO BM, NO NEW SKIN BREAKDOWN, SACRAL REDNESS IMPROVING, PLACED Z GUARD UNDERBREASTFOLDS, AXILLA, PERIAREA.
[2017-01-24] MEDS ORDERED: IV NS 0.9% 250 ML IV ONE (05:01)
--- NOTE | 2017-01-24 06:18 | NUR ---
RN NOTES CONDITION AND NEURO STATUS UNCHANGED; PX DENIED PAIN, SOB, N/V, SAY "IM MORE COMFORTABLE NOW" HOWEVER, SHE REFUSED TO BE TURNED DESPITE INSTRUCTIONS/EDUCATION; LEFT HIP DRESSING CLEAN,DRY,INTACT; O2 SAT REMAINED 94-96%; SR ON MONITOR. Addendum: 01/24/17 at 0620 by ELENI BAEZ RN MIDLINE PATENT AND INTACT; WILL ENDORSE TO NEXT RN.
[2017-01-24 06:46] LABS: INR 1.81 (0.87-1.13); PROTHROMBIN TIME 20.1 SECS (9.5-12.7)
--- NOTE | 2017-01-24 07:00 | NUR ---
Received pt in bed.no c/o pain,no s/s of distress. denies any pain this time.a/o x4 .F/C cdi and patent.breathing even and unlabored on 3lpm via nasal cannula.i.v site cdi and patent.will continue to monitor for changes. safety measures in place.bed in low and locked position.will continue to monitor for changes.
[2017-01-24 07:01] LABS: CALCIUM, SERUM 8.2 mg/dL (8.5-10.1); CREATININE 0.2 mg/dL (0.6-1.3); POTASSIUM 4.3 mmol/L (3.5-5.1)
[2017-01-24 07:08] LABS: BASOPHILS # (AUTO) 0.1 /CMM (0.0-0.2); BASOPHILS % (AUTO) 0.8 % (0.0-2.0); EOSINOPHILS # (AUTO) 0.4 /CMM (0.0-0.7); EOSINOPHILS % (AUTO) 3.8 % (0.0-6.0); HEMATOCRIT 30 % (33-45); HEMOGLOBIN 9.7 g/dL (11.5-14.8); LYMPHOCYTES # (AUTO) 1.2 /CMM (0.8-4.8); LYMPHOCYTES % (AUTO) 11.9 % (20.0-44.0); MEAN CORPUSCULAR HEMOGLOBIN 37 PG (26.0-33.0); MEAN CORPUSCULAR HGB CONC 33 g/dl (31.0-36.0); MEAN CORPUSCULAR VOLUME 113 fL (82-100); MONOCYTES # (AUTO) 1.5 /CMM (0.1-1.30); MONOCYTES % (AUTO) 14.3 % (2.0-12.0); NEUTROPHILS # (AUTO) 7.3 /CMM (1.8-8.9); NEUTROPHILS % (AUTO) 69.2 % (43.0-81.0); PLATELET COUNT (AUTO) 171 /CMM (150-450); RDW COEFFICIENT OF VARIATION 21.1 (11.5-15.0); RED BLOOD CELL COUNT(AUTO) 2.63 MIL/uL (4.0-5.2); WHITE BLOOD COUNT (AUTO) 10.5 K/uL (4.3-11.0)
[2017-01-24 08:00] VITALS: BP 152/88
[2017-01-24 08:13] LABS: ANISOCYTOSIS 2+; EOSINOPHILS % (MANUAL) 1 % (0-4); LYMPHOCYTES % (MANUAL) 14 % (16-48); MONOCYTES % (MANUAL) 10 % (0-11.0); NEUTROPHILS % (MANUAL) 75 (42-76)
[2017-01-24 08:14] LABS: PLATELET ESTIMATE ADEQUATE
[2017-01-24] MEDS: AMLODIPINE BESYLATE 5 MG TABLET PO SCH (08:49)
[2017-01-24] MEDS: CITALOPRAM HYDROBROMIDE 20 MG TABLET PO SCH (08:50)
[2017-01-24] MEDS: ENOXAPARIN SODIUM 100 MG/ML DISP.SYRIN SQ SCH (08:51)
[2017-01-24] MEDS ORDERED: DOCUSATE SODIUM 100 MG CAPSULE PO SCH (09:00)
[2017-01-24 12:00] VITALS: BP 131/74
[2017-01-24] MEDS ORDERED: MAGN400O6 PO (12:54)
[2017-01-24] MEDS ORDERED: WARF5TAB77 PO (12:54)
[2017-01-24] MEDS ORDERED: DOCU-25 PO (12:54)
[2017-01-24] MEDS ORDERED: ENOX100D SQ (12:54)
[2017-01-24] MEDS ORDERED: ONCOUMADIN PO (12:54)
[2017-01-24] MEDS ORDERED: Citalopram Hydrobromide PO (12:54)
--- NOTE | 2017-01-24 15:30 | NUR ---
pt discharged to SNF with ambulance.all m.d orders noted and discharge teachings provided to patient.pt in stable condition.all belongings provided to patient
== END 2017-01-24 15:22 | DRG 481 ==
LOC: ER 19:00 → MEDSG2 20:30 → MEDSG1 01-21 21:10 → TELE-TD 01-22 00:09 → MEDSG1 01-22 21:12 → TELE-TD 01-22 23:52 → TELE1 01-24 09:04
PROVIDERS: ADMIT Nurse Practitioner Acute Care; ATTEND Nurse Practitioner Acute Care
PROC: 30233K1 Transfusion of Nonautologous Frozen Plasma into Peripheral Vein, Percutaneous Approach (ICD-10-PCS; 2017-01-20)
PROC: 30233N1 Transfusion of Nonautologous Red Blood Cells into Peripheral Vein, Percutaneous Approach (ICD-10-PCS; 2017-01-21)
PROC: 0QS706Z Reposition Left Upper Femur with Intramedullary Internal Fixation Device, Open Approach (ICD-10-PCS; principal; 2017-01-21 08:00)
PROC: 5A09357 Assistance with Respiratory Ventilation, Less than 24 Consecutive Hours, Continuous Positive Airway Pressure (ICD-10-PCS; 2017-01-22)
PROC: 05H533Z Insertion of Infusion Device into Right Subclavian Vein, Percutaneous Approach (ICD-10-PCS; 2017-01-22)
DX: S72.142A Displaced intertrochanteric fracture of left femur, initial encounter for closed fracture (principal); D68.59 Other primary thrombophilia; G82.20 Paraplegia, unspecified; I82.432 Acute embolism and thrombosis of left popliteal vein; I82.411 Acute embolism and thrombosis of right femoral vein; J98.11 Atelectasis; B91 Sequelae of poliomyelitis; E78.5 Hyperlipidemia, unspecified; E66.01 Morbid (severe) obesity due to excess calories; F17.210 Nicotine dependence, cigarettes, uncomplicated; F32.9 Major depressive disorder, single episode, unspecified; G47.33 Obstructive sleep apnea (adult) (pediatric); I48.2 Chronic atrial fibrillation; J44.9 Chronic obstructive pulmonary disease, unspecified; M81.0 Age-related osteoporosis without current pathological fracture; G62.9 Polyneuropathy, unspecified; Z99.3 Dependence on wheelchair; Z68.38 Body mass index [BMI] 38.0-38.9, adult; Z86.718 Personal history of other venous thrombosis and embolism; E87.6 Hypokalemia; I34.0 Nonrheumatic mitral (valve) insufficiency; I11.9 Hypertensive heart disease without heart failure; M20.10 Hallux valgus (acquired), unspecified foot; S92.322A Displaced fracture of second metatarsal bone, left foot, initial encounter for closed fracture; Z74.01 Bed confinement status; Z79.01 Long term (current) use of anticoagulants
CPT/HCPCS: 36415; 36569; 36600; 71010-TC; 73020; 73510-TC; 73550-TC; 73560-TC; 73630-TC; 80048-TC; 80061-TC; 83735-TC; 84100-TC; 85025-TC; 85027-TC; 85610-TC; 85730-TC; 86850-TC; 86921-TC; 93307-TC; 93970-TC; 94799-TC; 97001-TC; 97003-TC; A4217; A4606; C9113; J1650; J2175; J2250; J2270; J2405; J3010; J3475; J3490; J7030; J7050; J7060; L8501; P9016-BL; P9017-BL; Z7610

== ENCOUNTER 2017-01-29 23:08 | Inpatient (IN) | payer MEDICARE ==
[~2017-01-29] VITALS: Ht 152.4 cm; Wt 89.1 kg
[~2017-01-29 23:08] MED LIST changes: +Citalopram Hydrobromide PO; +DOCU-25 PO; +ENOX100D SQ; -GABA600T PO; +IPRA3AMP IH; +MAGN400O6 PO; +ONCOUMADIN PO; -WARF3TAB6 PO; +WARF5TAB77 PO
[2017-01-30] MEDS ORDERED: CIPROFLOXACIN IV RTU 400 MG in PREMIX 1 EA IV SCH (03:00)
[2017-01-30] MEDS ORDERED: VANCOMYCIN 1 GM in IV D5W 250 ML IV ONE (03:00)
[2017-01-30] MEDS ORDERED: CIPROFLOXACIN IV RTU 200 ML IV ONE ×2 (03:01→03:09)
[2017-01-30] MEDS ORDERED: MAG HYDROX/AL HYDROX/SIMETH 30 ML UDC PO PRN (03:30)
[2017-01-30] MEDS ORDERED: ZOLPIDEM TARTRATE 5 MG TABLET PO PRN (03:30)
[2017-01-30] MEDS ORDERED: ONDANSETRON HCL/PF 4 MG/2 ML VIAL IVP PRN (03:30)
[2017-01-30] MEDS ORDERED: MAGNESIUM HYDROXIDE 30 ML UDC PO PRN (03:30)
[2017-01-30] MEDS ORDERED: Z GUARD REMEDY 2 OZ OINT TP PRN (03:30)
[2017-01-30 03:32] LABS: BASOPHILS % (AUTO) 0.3 % (0.0-2.0); EOSINOPHILS # (AUTO) 0.2 /CMM (0.0-0.7); EOSINOPHILS % (AUTO) 2.4 % (0.0-6.0); HEMATOCRIT 36 % (33-45); HEMOGLOBIN 11.6 g/dL (11.5-14.8); LYMPHOCYTES # (AUTO) 1.4 /CMM (0.8-4.8); LYMPHOCYTES % (AUTO) 15.1 % (20.0-44.0); MEAN CORPUSCULAR HEMOGLOBIN 37 PG (26.0-33.0); MEAN CORPUSCULAR HGB CONC 32 g/dl (31.0-36.0); MEAN CORPUSCULAR VOLUME 114 fL (82-100); MONOCYTES # (AUTO) 1.1 /CMM (0.1-1.30); NEUTROPHILS # (AUTO) 6.7 /CMM (1.8-8.9); NEUTROPHILS % (AUTO) 70.2 % (43.0-81.0); PLATELET COUNT (AUTO) 310 /CMM (150-450); RDW COEFFICIENT OF VARIATION 19.5 (11.5-15.0); RED BLOOD CELL COUNT(AUTO) 3.18 MIL/uL (4.0-5.2); WHITE BLOOD COUNT (AUTO) 9.5 K/uL (4.3-11.0)
[2017-01-30 03:42] LABS: CALCIUM, SERUM 8.7 mg/dL (8.5-10.1); CREATININE 0.3 mg/dL (0.6-1.3); POTASSIUM 3.5 mmol/L (3.5-5.1)
[2017-01-30 03:50] LABS: LACTIC ACID 1.8 mmol/L (0.4-2.0)
[2017-01-30 04:00] LABS: PROTHROMBIN TIME 73.3 SECS (9.5-12.7)
[2017-01-30 04:07] LABS: INR 6.1 (0.87-1.13)
[2017-01-30 04:15] VITALS: BP 135/90
[2017-01-30 04:43] LABS: ANISOCYTOSIS 2+; EOSINOPHILS % (MANUAL) 2 % (0-4); LYMPHOCYTES % (MANUAL) 19 % (16-48); MONOCYTES % (MANUAL) 10 % (0-11.0); NEUTROPHILS % (MANUAL) 69 (42-76); PLATELET ESTIMATE ADEQUATE
[2017-01-30 04:50] LABS: MAGNESIUM 1.7 mg/dL (1.8-2.4); PHOSPHORUS 3.2 mg/dL (2.5-4.9)
[2017-01-30] MEDS ORDERED: VANCOMYCIN 1 GM VIAL ONE (05:07)
[2017-01-30] MEDS ORDERED: IV D5W 250 ML IV ONE (05:08)
[2017-01-30] MEDS ORDERED: SECONDARY IV SET 1 EA INFUS.SET MC ONE ×2 (05:20→12:04)
[2017-01-30] MEDS ORDERED: IV NS 0.9% 250 ML IV ONE (05:28)
[2017-01-30] MEDS: PANTOPRAZOLE 40 MG TABLET.DR PO SCH (07:51)
[2017-01-30] MEDS: HYDROCODONE/APAP 5/325MG 1 EACH TABLET PO PRN ×3 (07:53→16:30)
[2017-01-30 08:00] VITALS: BP 94/56
[2017-01-30] MEDS ORDERED: FEE PK DOSING 1 MIN EA MC ONE (08:22)
[2017-01-30] MEDS ORDERED: MAGN400O6 PO (08:55)
[2017-01-30] MEDS ORDERED: CITA20TA19 PO (08:55)
[2017-01-30] MEDS ORDERED: NA P133E RC (08:55)
[2017-01-30] MEDS ORDERED: DOCU-25 PO (08:55)
[2017-01-30] MEDS ORDERED: ALEN70TA3 PO (08:55)
[2017-01-30] MEDS ORDERED: ENOX100D SQ (08:55)
[2017-01-30] MEDS ORDERED: MAGN400T26 PO (08:55)
[2017-01-30] MEDS ORDERED: BISA10SU8 RC (08:55)
[2017-01-30] MEDS ORDERED: POTA20TA83 PO (08:55)
[2017-01-30] MEDS ORDERED: GABA-534 PO (08:55)
[2017-01-30] MEDS ORDERED: FURO-145 PO (08:55)
[2017-01-30] MEDS ORDERED: CALC500T71 PO (08:55)
[2017-01-30] MEDS ORDERED: WARF5TAB77 PO (08:55)
[2017-01-30] MEDS ORDERED: ACET-868 PO (08:55)
[2017-01-30] MEDS: HYDROMORPHONE 1 MG/1 ML DISP.SYRIN IV PRN ×3 (09:40→20:00)
[2017-01-30] MEDS: Magnesium 1GM/D5W 100ML PREMIX 100 ML IV SCH ×2 (12:12→16:27)
[2017-01-30] MEDS ORDERED: PETROLATUM,WHITE PACKET 5 GM PACKET TP PRN (13:00)
[2017-01-30 16:00] VITALS: BP 108/80
[2017-01-30] MEDS: CIPROFLOXACIN IV RTU 200 MG in PREMIX 1 EA IV SCH (17:27)
[2017-01-30 20:51] VITALS: BP 116/64
[2017-01-30] MEDS ORDERED: VANCOMYCIN 0.75 GM in IV D5W 250 ML IV SCH (23:00)
[2017-01-31] VITALS (14 sets, daily range): BP systolic 98–134; BP diastolic 58–89
[2017-01-31] MEDS: CIPROFLOXACIN IV RTU 200 MG in PREMIX 1 EA IV SCH ×2 (03:03→16:00)
[2017-01-31] MEDS: HYDROMORPHONE 1 MG/1 ML DISP.SYRIN IV PRN ×5 (03:03→22:25)
[2017-01-31] MEDS: HYDROCODONE/APAP 5/325MG 1 EACH TABLET PO PRN ×3 (05:50→20:33)
[2017-01-31 07:58] LABS: BASOPHILS % (AUTO) 0.4 % (0.0-2.0); EOSINOPHILS % (AUTO) 0.4 % (0.0-6.0); HEMATOCRIT 23 % (33-45); HEMOGLOBIN 7.4 g/dL (11.5-14.8); LYMPHOCYTES # (AUTO) 0.9 /CMM (0.8-4.8); LYMPHOCYTES % (AUTO) 7.2 % (20.0-44.0); MEAN CORPUSCULAR HEMOGLOBIN 37 PG (26.0-33.0); MEAN CORPUSCULAR HGB CONC 33 g/dl (31.0-36.0); MEAN CORPUSCULAR VOLUME 113 fL (82-100); MONOCYTES # (AUTO) 1.7 /CMM (0.1-1.30); MONOCYTES % (AUTO) 13.8 % (2.0-12.0); NEUTROPHILS # (AUTO) 9.6 /CMM (1.8-8.9); NEUTROPHILS % (AUTO) 78.2 % (43.0-81.0); PLATELET COUNT (AUTO) 280 /CMM (150-450); RED BLOOD CELL COUNT(AUTO) 2.01 MIL/uL (4.0-5.2); WHITE BLOOD COUNT (AUTO) 12.3 K/uL (4.3-11.0)
[2017-01-31] MEDS: PANTOPRAZOLE 40 MG TABLET.DR PO SCH (08:01)
[2017-01-31 08:11] LABS: CALCIUM, SERUM 7.8 mg/dL (8.5-10.1); CREATININE 0.3 mg/dL (0.6-1.3); MAGNESIUM 2.1 mg/dL (1.8-2.4); POTASSIUM 3.8 mmol/L (3.5-5.1)
[2017-01-31 08:35] LABS: BAND % (MANUAL) 1 % (0.0-5.0); LYMPHOCYTES % (MANUAL) 7 % (16-48); MONOCYTES % (MANUAL) 5 % (0-11.0); NEUTROPHILS % (MANUAL) 87 (42-76); PLATELET ESTIMATE ADEQUATE
[2017-01-31 08:36] LABS: ANISOCYTOSIS 2+
[2017-01-31 11:41] LABS: BASOPHILS # (AUTO) 0.1 /CMM (0.0-0.2); BASOPHILS % (AUTO) 0.4 % (0.0-2.0); EOSINOPHILS % (AUTO) 0.2 % (0.0-6.0); HEMATOCRIT 21 % (33-45); MEAN CORPUSCULAR HEMOGLOBIN 37 PG (26.0-33.0); MEAN CORPUSCULAR HGB CONC 32 g/dl (31.0-36.0); MEAN CORPUSCULAR VOLUME 113 fL (82-100); MONOCYTES # (AUTO) 1.5 /CMM (0.1-1.30); MONOCYTES % (AUTO) 12.1 % (2.0-12.0); NEUTROPHILS # (AUTO) 9.8 /CMM (1.8-8.9); NEUTROPHILS % (AUTO) 79.3 % (43.0-81.0); PLATELET COUNT (AUTO) 282 /CMM (150-450); WHITE BLOOD COUNT (AUTO) 12.3 K/uL (4.3-11.0)
[2017-01-31 11:46] LABS: RED BLOOD CELL COUNT(AUTO) 1.86 MIL/uL (4.0-5.2)
[2017-01-31 11:48] LABS: HEMOGLOBIN 6.8 g/dL (11.5-14.8)
[2017-01-31 12:07] LABS: ANISOCYTOSIS 2+; BAND % (MANUAL) 2 % (0.0-5.0); EOSINOPHILS % (MANUAL) 1 % (0-4); LYMPHOCYTES % (MANUAL) 8 % (16-48); MONOCYTES % (MANUAL) 9 % (0-11.0); NEUTROPHILS % (MANUAL) 80 (42-76); PLATELET ESTIMATE ADEQUATE
[2017-01-31] MEDS ORDERED: PHYTONADIONE INJ 10 MG/1 ML AMPUL SQ SCH (13:30)
[2017-01-31] MEDS: VANCOMYCIN 1 GM in IV D5W 250 ML IV SCH (14:36)
[2017-01-31] MEDS ORDERED: PHYTONADIONE INJ 10 MG/1 ML AMPUL SQ ONE ×2 (15:00)
[2017-01-31] MEDS ORDERED: ALBUTEROL FS 2.5 MG/3 ML VIAL.NEB ONE (16:05)
[2017-01-31] MEDS ORDERED: IPRATROPIUM NEB FS 0.5 MG/2.5 ML AMPUL.NEB ONE (16:05)
[2017-01-31] MEDS ORDERED: IV NS 0.9% 250 ML IV ONE (16:12)
[2017-01-31] MEDS ORDERED: BLOOD IV SET 1 EA INFUS.SET MC ONE (16:12)
[2017-01-31] MEDS ORDERED: IPRATROPIUM NEB FS 0.5 MG/2.5 ML AMPUL.NEB NEB PRN (16:30)
[2017-01-31] MEDS ORDERED: ALBUTEROL FS 2.5 MG/3 ML VIAL.NEB NEB PRN (16:30)
[2017-01-31] MEDS: ALBUTEROL FS 2.5 MG/3 ML VIAL.NEB NEB SCH ×2 (20:07→23:14)
[2017-01-31 20:27] LABS: ABG OXYGEN SATURATION 86.6 % (92.0-98.5); ABG PCO2 51.3 mmHg (35.0-45.0); ABG PO2 51.4 mmHg (75.0-100.0); ABG TOTAL HEMOGLOBIN 8.5 G/dL (12.0-16.0); AaDO2 145.8 mmHg; COHb 2.1 % (0.5-1.5); MetHb 1.2 % (0.0-1.5); O2Hb 83.7 % (94.0-97.0); SITE, ABG Right Radial
[2017-01-31] MEDS: IPRATROPIUM NEB FS 0.5 MG/2.5 ML AMPUL.NEB NEB SCH ×2 (20:31→23:13)
[2017-02-01 01:00] VITALS: BP 124/72
[2017-02-01] MEDS: IPRATROPIUM NEB FS 0.5 MG/2.5 ML AMPUL.NEB NEB SCH ×6 (02:29→23:17)
[2017-02-01] MEDS: ALBUTEROL FS 2.5 MG/3 ML VIAL.NEB NEB SCH ×6 (02:29→23:17)
[2017-02-01] MEDS: HYDROMORPHONE 1 MG/1 ML DISP.SYRIN IV PRN ×5 (02:29→20:11)
[2017-02-01] MEDS: CIPROFLOXACIN IV RTU 200 MG in PREMIX 1 EA IV SCH (03:39)
[2017-02-01 08:00] VITALS: BP_SYST 114; BP_SYST 135; BP_DIAS 61; BP_DIAS 78
[2017-02-01] MEDS ORDERED: IV NS 0.9% 250 ML IV ONE (08:16)
[2017-02-01 08:20] LABS: BASOPHILS % (AUTO) 0.2 % (0.0-2.0); EOSINOPHILS % (AUTO) 0.1 % (0.0-6.0); HEMATOCRIT 29 % (33-45); HEMOGLOBIN 9.5 g/dL (11.5-14.8); MEAN CORPUSCULAR HEMOGLOBIN 34 PG (26.0-33.0); MEAN CORPUSCULAR HGB CONC 33 g/dl (31.0-36.0); MEAN CORPUSCULAR VOLUME 103 fL (82-100); MONOCYTES % (AUTO) 13.8 % (2.0-12.0); NEUTROPHILS # (AUTO) 11.5 /CMM (1.8-8.9); NEUTROPHILS % (AUTO) 78.9 % (43.0-81.0); PLATELET COUNT (AUTO) 284 /CMM (150-450); RDW COEFFICIENT OF VARIATION 24.3 (11.5-15.0); RED BLOOD CELL COUNT(AUTO) 2.79 MIL/uL (4.0-5.2); WHITE BLOOD COUNT (AUTO) 14.6 K/uL (4.3-11.0)
[2017-02-01] MEDS: VANCOMYCIN 1 GM in IV D5W 250 ML IV SCH (08:32)
[2017-02-01] MEDS: PANTOPRAZOLE 40 MG TABLET.DR PO SCH (08:32)
[2017-02-01 08:36] LABS: INR 1.42 (0.87-1.13); PROTHROMBIN TIME 15.5 SECS (9.5-12.7)
[2017-02-01 08:44] LABS: CALCIUM, SERUM 7.9 mg/dL (8.5-10.1); CREATININE 0.3 mg/dL (0.6-1.3); POTASSIUM 3.8 mmol/L (3.5-5.1)
[2017-02-01] MEDS: ACETAMINOPHEN 325 MG TABLET PO PRN (12:39)
[2017-02-01 16:00] VITALS: BP 120/89
[2017-02-01] MEDS: CIPROFLOXACIN HCL 250 MG TABLET PO SCH (18:29)
[2017-02-01 20:52] VITALS: BP 110/72
[2017-02-02] MEDS: HYDROMORPHONE 1 MG/1 ML DISP.SYRIN IV PRN ×5 (00:29→18:07)
[2017-02-02] MEDS: VANCOMYCIN 1 GM in IV D5W 250 ML IV SCH ×2 (01:31→20:55)
[2017-02-02] MEDS: IPRATROPIUM NEB FS 0.5 MG/2.5 ML AMPUL.NEB NEB SCH ×6 (03:44→23:43)
[2017-02-02] MEDS: ALBUTEROL FS 2.5 MG/3 ML VIAL.NEB NEB SCH ×5 (03:44→20:48)
[2017-02-02] MEDS: CIPROFLOXACIN HCL 250 MG TABLET PO SCH ×2 (05:02→17:37)
[2017-02-02 07:38] LABS: BASOPHILS % (AUTO) 0.2 % (0.0-2.0); EOSINOPHILS # (AUTO) 0.1 /CMM (0.0-0.7); EOSINOPHILS % (AUTO) 0.8 % (0.0-6.0); HEMATOCRIT 30 % (33-45); LYMPHOCYTES # (AUTO) 1.4 /CMM (0.8-4.8); LYMPHOCYTES % (AUTO) 9.1 % (20.0-44.0); MEAN CORPUSCULAR HEMOGLOBIN 35 PG (26.0-33.0); MEAN CORPUSCULAR HGB CONC 34 g/dl (31.0-36.0); MEAN CORPUSCULAR VOLUME 105 fL (82-100); MONOCYTES # (AUTO) 1.8 /CMM (0.1-1.30); MONOCYTES % (AUTO) 12.1 % (2.0-12.0); NEUTROPHILS # (AUTO) 11.8 /CMM (1.8-8.9); NEUTROPHILS % (AUTO) 77.8 % (43.0-81.0); PLATELET COUNT (AUTO) 308 /CMM (150-450); RDW COEFFICIENT OF VARIATION 23.6 (11.5-15.0); RED BLOOD CELL COUNT(AUTO) 2.83 MIL/uL (4.0-5.2); WHITE BLOOD COUNT (AUTO) 15.2 K/uL (4.3-11.0)
[2017-02-02 07:45] LABS: CALCIUM, SERUM 7.8 mg/dL (8.5-10.1); CREATININE 0.4 mg/dL (0.6-1.3); POTASSIUM 3.6 mmol/L (3.5-5.1)
[2017-02-02 08:00] VITALS: BP 104/64
[2017-02-02] MEDS: PANTOPRAZOLE 40 MG TABLET.DR PO SCH (08:28)
[2017-02-02] MEDS ORDERED: MAGNESIUM HYDROXIDE 30 ML UDC PO PRN ×2 (09:00→10:04)
[2017-02-02] MEDS ORDERED: ACETAMINOPHEN 325 MG TABLET PO PRN (09:00)
[2017-02-02] MEDS ORDERED: BISACODYL SUPP (10 MG) 10 MG/SUPP.RECT SUPP.RECT RC PRN (09:00)
[2017-02-02] MEDS ORDERED: NA PHOS,M-B/NA PHOS,DI-BA 1 EA ENEMA RC PRN (09:00)
[2017-02-02] MEDS ORDERED: HYDROCODONE/APAP 5/325MG 1 EACH TABLET PO PRN (09:00)
[2017-02-02] MEDS: AMLODIPINE BESYLATE 5 MG TABLET PO SCH (09:00)
[2017-02-02] MEDS: ALENDRONATE 70 MG TABLET PO SCH (09:59)
[2017-02-02 10:00] VITALS: BP 104/64
[2017-02-02] MEDS: DOCUSATE SODIUM 100 MG CAPSULE PO SCH (10:44)
[2017-02-02] MEDS: CALCIUM CARBONATE (1250) 500 MG TABLET PO SCH (10:44)
[2017-02-02] MEDS: GABAPENTIN 300 MG CAPSULE PO SCH ×4 (10:45→20:56)
[2017-02-02] MEDS: MAGNESIUM OXIDE 400 MG TABLET PO SCH (10:45)
[2017-02-02] MEDS: FUROSEMIDE 20 MG TABLET PO SCH (10:45)
[2017-02-02] MEDS: CITALOPRAM HYDROBROMIDE 20 MG TABLET PO SCH (10:46)
[2017-02-02] MEDS: POTASSIUM CHLORIDE 20 MEQ TAB.PRT.SR PO SCH (10:46)
[2017-02-02] MEDS: ENOXAPARIN SODIUM 100 MG/ML DISP.SYRIN SQ SCH ×2 (10:52→21:00)
[2017-02-02] MEDS ORDERED: IPRATROPIUM NEB FS 0.5 MG/2.5 ML AMPUL.NEB NEB PRN (13:30)
[2017-02-02 13:58] LABS: INR 1.07 (0.87-1.13); PROTHROMBIN TIME 11.5 SECS (9.5-12.7)
[2017-02-02 16:00] VITALS: BP 102/58
[2017-02-02] MEDS: LACTOBACILLUS RHAMNOSUS GG 1 EACH CAP.SPRINK PO SCH (17:37)
[2017-02-02] MEDS: WARFARIN SODIUM 7.5 MG TABLET PO SCH (17:40)
[2017-02-02 20:00] VITALS: BP 127/67
[2017-02-02 20:46] VITALS: BP 127/67
[2017-02-02] MEDS ORDERED: IV SET PRIMARY PUMP SET 1 EA INFUS.SET MC ONE (22:35)
[2017-02-03] MEDS: ALBUTEROL FS 2.5 MG/3 ML VIAL.NEB NEB SCH ×7 (00:09→23:57)
[2017-02-03] MEDS: IPRATROPIUM NEB FS 0.5 MG/2.5 ML AMPUL.NEB NEB SCH ×6 (03:46→23:58)
[2017-02-03] MEDS: CIPROFLOXACIN HCL 250 MG TABLET PO SCH ×2 (05:12→17:03)
[2017-02-03] MEDS: HYDROMORPHONE 1 MG/1 ML DISP.SYRIN IV PRN (06:04)
[2017-02-03 07:45] LABS: BASOPHILS % (AUTO) 0.1 % (0.0-2.0); EOSINOPHILS % (AUTO) 0.1 % (0.0-6.0); HEMATOCRIT 28 % (33-45); HEMOGLOBIN 9.2 g/dL (11.5-14.8); LYMPHOCYTES # (AUTO) 1.9 /CMM (0.8-4.8); LYMPHOCYTES % (AUTO) 9.8 % (20.0-44.0); MEAN CORPUSCULAR HEMOGLOBIN 35 PG (26.0-33.0); MEAN CORPUSCULAR HGB CONC 33 g/dl (31.0-36.0); MEAN CORPUSCULAR VOLUME 105 fL (82-100); MONOCYTES # (AUTO) 2.3 /CMM (0.1-1.30); MONOCYTES % (AUTO) 12.4 % (2.0-12.0); NEUTROPHILS # (AUTO) 14.7 /CMM (1.8-8.9); NEUTROPHILS % (AUTO) 77.6 % (43.0-81.0); PLATELET COUNT (AUTO) 347 /CMM (150-450); RDW COEFFICIENT OF VARIATION 22.7 (11.5-15.0); RED BLOOD CELL COUNT(AUTO) 2.65 MIL/uL (4.0-5.2); WHITE BLOOD COUNT (AUTO) 18.9 K/uL (4.3-11.0)
[2017-02-03 07:54] LABS: INR 1.11 (0.87-1.13)
[2017-02-03 08:00] VITALS: BP 95/44
[2017-02-03 08:05] LABS: CALCIUM, SERUM 7.9 mg/dL (8.5-10.1); CREATININE 0.4 mg/dL (0.6-1.3); POTASSIUM 4.2 mmol/L (3.5-5.1)
[2017-02-03] MEDS: LACTOBACILLUS RHAMNOSUS GG 1 EACH CAP.SPRINK PO SCH ×2 (08:28→17:03)
[2017-02-03] MEDS: CITALOPRAM HYDROBROMIDE 20 MG TABLET PO SCH (08:28)
[2017-02-03] MEDS: CALCIUM CARBONATE (1250) 500 MG TABLET PO SCH (08:28)
[2017-02-03] MEDS: POTASSIUM CHLORIDE 20 MEQ TAB.PRT.SR PO SCH (08:28)
[2017-02-03] MEDS: PANTOPRAZOLE 40 MG TABLET.DR PO SCH (08:28)
[2017-02-03] MEDS: FUROSEMIDE 20 MG TABLET PO SCH (08:28)
[2017-02-03] MEDS: DOCUSATE SODIUM 100 MG CAPSULE PO SCH (08:28)
[2017-02-03] MEDS: MAGNESIUM OXIDE 400 MG TABLET PO SCH (08:28)
[2017-02-03] MEDS: ENOXAPARIN SODIUM 100 MG/ML DISP.SYRIN SQ SCH ×2 (08:29→21:14)
[2017-02-03] MEDS: GABAPENTIN 300 MG CAPSULE PO SCH ×4 (08:31→21:13)
[2017-02-03] MEDS: AMLODIPINE BESYLATE 5 MG TABLET PO SCH (08:38)
[2017-02-03] MEDS ORDERED: LEVOFLOXACIN 500 MG /D5W 100ML 500 MG in PREMIX 1 EA IV ONE ×2 (10:30→11:00)
[2017-02-03] MEDS: ACETYLCYSTEINE 10% SOLN 400 MG/4 ML VIAL NEB SCH ×4 (12:00→23:58)
[2017-02-03] MEDS: HYDROCODONE/APAP 5/325MG 1 EACH TABLET PO PRN (12:44)
[2017-02-03] MEDS: VANCOMYCIN 1 GM in IV D5W 250 ML IV SCH (13:53)
[2017-02-03 16:00] VITALS: BP 116/59
[2017-02-03] MEDS ORDERED: WARFARIN SODIUM 7.5 MG TABLET PO SCH (17:00)
[2017-02-03] MEDS: WARFARIN SODIUM 7.5 MG TABLET PO SCH (17:03)
[2017-02-03] MEDS ORDERED: SECONDARY IV SET 1 EA INFUS.SET MC ONE (17:35)
[2017-02-03] MEDS: LEVOFLOXACIN 750 MG /D5W 150ML 750 MG in PREMIX 1 EA IV SCH (17:36)
[2017-02-03 20:00] VITALS: BP 102/71
[2017-02-04] MEDS: HYDROCODONE/APAP 5/325MG 1 EACH TABLET PO PRN ×2 (00:29→15:02)
[2017-02-04] MEDS: IPRATROPIUM NEB FS 0.5 MG/2.5 ML AMPUL.NEB NEB SCH ×6 (03:53→23:31)
[2017-02-04] MEDS: ALBUTEROL FS 2.5 MG/3 ML VIAL.NEB NEB SCH ×6 (03:53→23:31)
[2017-02-04 07:34] LABS: BASOPHILS % (AUTO) 0.2 % (0.0-2.0); EOSINOPHILS # (AUTO) 0.3 /CMM (0.0-0.7); EOSINOPHILS % (AUTO) 1.5 % (0.0-6.0); HEMATOCRIT 29 % (33-45); HEMOGLOBIN 9.4 g/dL (11.5-14.8); LYMPHOCYTES # (AUTO) 1.2 /CMM (0.8-4.8); LYMPHOCYTES % (AUTO) 6.8 % (20.0-44.0); MEAN CORPUSCULAR HEMOGLOBIN 35 PG (26.0-33.0); MEAN CORPUSCULAR HGB CONC 33 g/dl (31.0-36.0); MEAN CORPUSCULAR VOLUME 106 fL (82-100); MONOCYTES % (AUTO) 11.1 % (2.0-12.0); NEUTROPHILS # (AUTO) 14.3 /CMM (1.8-8.9); NEUTROPHILS % (AUTO) 80.4 % (43.0-81.0); PLATELET COUNT (AUTO) 353 /CMM (150-450); RDW COEFFICIENT OF VARIATION 22.6 (11.5-15.0); RED BLOOD CELL COUNT(AUTO) 2.73 MIL/uL (4.0-5.2); WHITE BLOOD COUNT (AUTO) 17.8 K/uL (4.3-11.0)
[2017-02-04 07:51] LABS: CALCIUM, SERUM 8.1 mg/dL (8.5-10.1); CREATININE 0.5 mg/dL (0.6-1.3); POTASSIUM 4.6 mmol/L (3.5-5.1)
[2017-02-04 08:00] VITALS: BP 133/67
[2017-02-04] MEDS: PANTOPRAZOLE 40 MG TABLET.DR PO SCH (08:20)
[2017-02-04] MEDS: CITALOPRAM HYDROBROMIDE 20 MG TABLET PO SCH (08:20)
[2017-02-04] MEDS: AMLODIPINE BESYLATE 5 MG TABLET PO SCH (08:20)
[2017-02-04] MEDS: POTASSIUM CHLORIDE 20 MEQ TAB.PRT.SR PO SCH (08:20)
[2017-02-04] MEDS: DOCUSATE SODIUM 100 MG CAPSULE PO SCH (08:20)
[2017-02-04] MEDS: CALCIUM CARBONATE (1250) 500 MG TABLET PO SCH (08:20)
[2017-02-04] MEDS: FUROSEMIDE 20 MG TABLET PO SCH (08:20)
[2017-02-04] MEDS: MAGNESIUM OXIDE 400 MG TABLET PO SCH (08:21)
[2017-02-04] MEDS: LACTOBACILLUS RHAMNOSUS GG 1 EACH CAP.SPRINK PO SCH ×2 (08:21→16:35)
[2017-02-04] MEDS: GABAPENTIN 300 MG CAPSULE PO SCH ×4 (08:26→20:20)
[2017-02-04] MEDS: ENOXAPARIN SODIUM 100 MG/ML DISP.SYRIN SQ SCH ×2 (08:26→20:43)
[2017-02-04 08:27] LABS: EOSINOPHILS % (MANUAL) 1 % (0-4); LYMPHOCYTES % (MANUAL) 8 % (16-48); MONOCYTES % (MANUAL) 5 % (0-11.0); NEUTROPHILS % (MANUAL) 86 (42-76); PLATELET ESTIMATE ADEQUATE
[2017-02-04 08:28] LABS: ANISOCYTOSIS 2+
[2017-02-04] MEDS: ACETYLCYSTEINE 10% SOLN 400 MG/4 ML VIAL NEB SCH ×3 (09:24→23:31)
[2017-02-04] MEDS: VANCOMYCIN 1 GM in IV D5W 250 ML IV SCH (09:41)
[2017-02-04] MEDS ORDERED: LEVOFLOXACIN 250 MG /D5W 50 ML 250 MG in PREMIX 1 EA IV SCH (11:00)
[2017-02-04 13:52] LABS: INR 1.57 (0.87-1.13); PROTHROMBIN TIME 16.7 SECS (9.5-12.7)
[2017-02-04 16:00] VITALS: BP 108/60
[2017-02-04] MEDS: WARFARIN SODIUM 7.5 MG TABLET PO SCH (16:36)
[2017-02-04] MEDS: LEVOFLOXACIN 750 MG /D5W 150ML 750 MG in PREMIX 1 EA IV SCH (17:15)
[2017-02-04 20:00] VITALS: BP 112/65
[2017-02-04] MEDS ORDERED: VANCOMYCIN 1 GM VIAL ONE (21:40)
[2017-02-04] MEDS ORDERED: IV D5W 250 ML IV ONE (21:40)
[2017-02-04] MEDS: VANCOMYCIN 0.75 GM in IV D5W 250 ML IV SCH (22:53)
[2017-02-05] VITALS (9 sets, daily range): BP systolic 100–134; BP diastolic 38–91
[2017-02-05] MEDS: HYDROCODONE/APAP 5/325MG 1 EACH TABLET PO PRN ×3 (02:43→18:42)
[2017-02-05] MEDS: ALBUTEROL FS 2.5 MG/3 ML VIAL.NEB NEB SCH ×6 (03:46→23:43)
[2017-02-05] MEDS: IPRATROPIUM NEB FS 0.5 MG/2.5 ML AMPUL.NEB NEB SCH ×6 (03:46→23:43)
[2017-02-05 07:25] LABS: BASOPHILS % (AUTO) 0.1 % (0.0-2.0); EOSINOPHILS # (AUTO) 0.3 /CMM (0.0-0.7); EOSINOPHILS % (AUTO) 1.7 % (0.0-6.0); HEMATOCRIT 29 % (33-45); HEMOGLOBIN 9.1 g/dL (11.5-14.8); LYMPHOCYTES # (AUTO) 1.2 /CMM (0.8-4.8); LYMPHOCYTES % (AUTO) 7.2 % (20.0-44.0); MEAN CORPUSCULAR HEMOGLOBIN 34 PG (26.0-33.0); MEAN CORPUSCULAR HGB CONC 32 g/dl (31.0-36.0); MEAN CORPUSCULAR VOLUME 106 fL (82-100); MONOCYTES # (AUTO) 1.6 /CMM (0.1-1.30); MONOCYTES % (AUTO) 9.7 % (2.0-12.0); NEUTROPHILS # (AUTO) 13.5 /CMM (1.8-8.9); NEUTROPHILS % (AUTO) 81.3 % (43.0-81.0); PLATELET COUNT (AUTO) 346 /CMM (150-450); RED BLOOD CELL COUNT(AUTO) 2.68 MIL/uL (4.0-5.2); WHITE BLOOD COUNT (AUTO) 16.7 K/uL (4.3-11.0)
[2017-02-05 07:38] LABS: CALCIUM, SERUM 8.1 mg/dL (8.5-10.1); CREATININE 0.6 mg/dL (0.6-1.3); POTASSIUM 4.7 mmol/L (3.5-5.1)
[2017-02-05 08:05] LABS: ANISOCYTOSIS 3+; BAND % (MANUAL) 2 % (0.0-5.0); EOSINOPHILS % (MANUAL) 1 % (0-4); LYMPHOCYTES % (MANUAL) 4 % (16-48); MONOCYTES % (MANUAL) 7 % (0-11.0); NEUTROPHILS % (MANUAL) 86 (42-76); PLATELET ESTIMATE ADEQUATE
[2017-02-05] MEDS: ACETYLCYSTEINE 10% SOLN 400 MG/4 ML VIAL NEB SCH ×3 (08:37→23:43)
[2017-02-05] MEDS: CALCIUM CARBONATE (1250) 500 MG TABLET PO SCH (08:46)
[2017-02-05] MEDS: AMLODIPINE BESYLATE 5 MG TABLET PO SCH (08:47)
[2017-02-05] MEDS: GABAPENTIN 300 MG CAPSULE PO SCH ×4 (08:47→21:12)
[2017-02-05] MEDS: MAGNESIUM OXIDE 400 MG TABLET PO SCH (08:47)
[2017-02-05] MEDS: DOCUSATE SODIUM 100 MG CAPSULE PO SCH (08:47)
[2017-02-05] MEDS: POTASSIUM CHLORIDE 20 MEQ TAB.PRT.SR PO SCH (08:47)
[2017-02-05] MEDS: CITALOPRAM HYDROBROMIDE 20 MG TABLET PO SCH (08:47)
[2017-02-05] MEDS: LACTOBACILLUS RHAMNOSUS GG 1 EACH CAP.SPRINK PO SCH ×2 (08:47→16:03)
[2017-02-05] MEDS: FUROSEMIDE 20 MG TABLET PO SCH (08:47)
[2017-02-05] MEDS: PANTOPRAZOLE 40 MG TABLET.DR PO SCH (08:47)
[2017-02-05] MEDS: ENOXAPARIN SODIUM 100 MG/ML DISP.SYRIN SQ SCH ×2 (08:48→21:14)
[2017-02-05] MEDS: VANCOMYCIN 0.75 GM in IV D5W 250 ML IV SCH ×2 (09:18→21:00)
[2017-02-05] MEDS ORDERED: IV SET PRIMARY PUMP SET 1 EA INFUS.SET MC ONE ×2 (09:20→20:21)
[2017-02-05] MEDS ORDERED: SECONDARY IV SET 1 EA INFUS.SET MC ONE ×2 (09:20→21:27)
[2017-02-05 11:22] LABS: INR 2.06 (0.87-1.13); PROTHROMBIN TIME 23.1 SECS (9.5-12.7)
[2017-02-05 12:36] LABS: ABG BASE EXCESS 6.8 mmol/L; ABG OXYGEN SATURATION 83.8 % (92.0-98.5); ABG PCO2 46.3 mmHg (35.0-45.0); ABG PH 7.452 (7.350-7.450); ABG PO2 49.3 mmHg (75.0-100.0); ABG TOTAL HEMOGLOBIN 9.8 G/dL (12.0-16.0); AaDO2 95.7 mmHg; MetHb 0.9 % (0.0-1.5); O2Hb 81.4 % (94.0-97.0); SITE, ABG Right Radial; VENT MODE, BG 2LPM N/C
[2017-02-05] MEDS: WARFARIN SODIUM 5 MG TABLET PO SCH (16:06)
[2017-02-05] MEDS: LEVOFLOXACIN 750 MG /D5W 150ML 750 MG in PREMIX 1 EA IV SCH (17:21)
[2017-02-05] MEDS ORDERED: MEROPENEM 500 MG in IV NS 0.9% 50 ML IV SCH (18:27)
[2017-02-05 20:53] LABS: ABG BASE EXCESS 6.2 mmol/L; ABG OXYGEN SATURATION 91.6 % (92.0-98.5); ABG PCO2 61.8 mmHg (35.0-45.0); ABG PH 7.349 (7.350-7.450); ABG PO2 68.7 mmHg (75.0-100.0); ABG TOTAL HEMOGLOBIN 10.5 G/dL (12.0-16.0); AaDO2 436.8 mmHg; COHb 1.9 % (0.5-1.5); O2Hb 88.9 % (94.0-97.0); SITE, ABG Right Radial; VENT MODE, BG NRB 15L
[2017-02-05] MEDS ORDERED: IV NS 0.9% 250 ML IV ONE (20:55)
[2017-02-05] MEDS: MEROPENEM 500 MG in IV NS 0.9% 50 ML IV SCH (21:12)
[2017-02-06] VITALS (49 sets, daily range): BP systolic 38–129; BP diastolic 19–95
[2017-02-06] MEDS ORDERED: IOHEXOL-350 100 ML VIAL IV ONE (00:45)
[2017-02-06] MEDS ORDERED: IV NS 0.9% 250 ML IV ONE (00:45)
[2017-02-06] MEDS: HYDROMORPHONE 1 MG/1 ML DISP.SYRIN IV PRN ×3 (01:39→20:56)
[2017-02-06] MEDS: IPRATROPIUM NEB FS 0.5 MG/2.5 ML AMPUL.NEB NEB SCH ×5 (03:35→23:23)
[2017-02-06] MEDS: ALBUTEROL FS 2.5 MG/3 ML VIAL.NEB NEB SCH ×5 (03:35→23:23)
[2017-02-06] MEDS: MEROPENEM 500 MG in IV NS 0.9% 50 ML IV SCH ×3 (05:06→20:46)
[2017-02-06 05:28] LABS: CALCIUM, SERUM 7.9 mg/dL (8.5-10.1); CARBON DIOXIDE 36 mmol/L (21-32); CHLORIDE 100 mmol/L (98-107); CREATININE 0.6 mg/dL (0.6-1.3); GLUCOSE 129 mg/dL (74-106); POTASSIUM 4.7 mmol/L (3.5-5.1); SODIUM SERUM 140 mmol/L (136-145); UREA NITROGEN, BLOOD 15 mg/dL (7-18)
[2017-02-06 05:37] LABS: TROPONIN I < 0.017 ng/mL (0.00-0.056)
[2017-02-06 05:47] LABS: INR 2.91 (0.87-1.13); PROTHROMBIN TIME 33.3 SECS (9.5-12.7)
[2017-02-06 05:55] LABS: BASOPHILS % (AUTO) 0.1 % (0.0-2.0); EOSINOPHILS # (AUTO) 0.1 /CMM (0.0-0.7); EOSINOPHILS % (AUTO) 0.7 % (0.0-6.0); HEMATOCRIT 27 % (33-45); HEMOGLOBIN 8.8 g/dL (11.5-14.8); LYMPHOCYTES # (AUTO) 0.9 /CMM (0.8-4.8); LYMPHOCYTES % (AUTO) 5.9 % (20.0-44.0); MEAN CORPUSCULAR HEMOGLOBIN 34 PG (26.0-33.0); MEAN CORPUSCULAR HGB CONC 32 g/dl (31.0-36.0); MEAN CORPUSCULAR VOLUME 106 fL (82-100); MONOCYTES # (AUTO) 1.4 /CMM (0.1-1.30); NEUTROPHILS # (AUTO) 12.8 /CMM (1.8-8.9); NEUTROPHILS % (AUTO) 84.3 % (43.0-81.0); PLATELET COUNT (AUTO) 184 /CMM (150-450); RDW COEFFICIENT OF VARIATION 21.3 (11.5-15.0); RED BLOOD CELL COUNT(AUTO) 2.58 MIL/uL (4.0-5.2); WHITE BLOOD COUNT (AUTO) 15.2 K/uL (4.3-11.0)
[2017-02-06 06:03] LABS: ANISOCYTOSIS 1+; BAND % (MANUAL) 2 % (0.0-5.0); EOSINOPHILS % (MANUAL) 1 % (0-4); LYMPHOCYTES % (MANUAL) 14 % (16-48); MONOCYTES % (MANUAL) 8 % (0-11.0); NEUTROPHILS % (MANUAL) 75 (42-76); PLATELET ESTIMATE ADEQUATE
[2017-02-06] MEDS: ACETYLCYSTEINE 10% SOLN 400 MG/4 ML VIAL NEB SCH ×2 (07:49→23:24)
[2017-02-06] MEDS: VANCOMYCIN 0.75 GM in IV D5W 250 ML IV SCH (08:49)
[2017-02-06] MEDS: ENOXAPARIN SODIUM 100 MG/ML DISP.SYRIN SQ SCH ×2 (08:57→20:55)
[2017-02-06] MEDS: POTASSIUM CHLORIDE 20 MEQ TAB.PRT.SR PO SCH (09:01)
[2017-02-06] MEDS: DOCUSATE SODIUM 100 MG CAPSULE PO SCH (09:01)
[2017-02-06] MEDS: CALCIUM CARBONATE (1250) 500 MG TABLET PO SCH (09:01)
[2017-02-06] MEDS: CITALOPRAM HYDROBROMIDE 20 MG TABLET PO SCH (09:01)
[2017-02-06] MEDS: MAGNESIUM OXIDE 400 MG TABLET PO SCH (09:01)
[2017-02-06] MEDS: FUROSEMIDE 20 MG TABLET PO SCH (09:01)
[2017-02-06] MEDS: LACTOBACILLUS RHAMNOSUS GG 1 EACH CAP.SPRINK PO SCH ×2 (09:02→18:04)
[2017-02-06] MEDS: AMLODIPINE BESYLATE 5 MG TABLET PO SCH (09:02)
[2017-02-06] MEDS: GABAPENTIN 300 MG CAPSULE PO SCH ×4 (09:03→20:46)
[2017-02-06] MEDS: PANTOPRAZOLE 40 MG TABLET.DR PO SCH (09:03)
[2017-02-06 11:55] LABS: ABG BASE EXCESS 8.8 mmol/L; ABG OXYGEN SATURATION 87.9 % (92.0-98.5); ABG PCO2 49.7 mmHg (35.0-45.0); ABG PH 7.451 (7.350-7.450); ABG PO2 54.8 mmHg (75.0-100.0); ABG TOTAL HEMOGLOBIN 9.3 G/dL (12.0-16.0); AaDO2 86.2 mmHg; COHb 1.9 % (0.5-1.5); MetHb 1.1 % (0.0-1.5); O2Hb 85.3 % (94.0-97.0); SITE, ABG Right Radial; VENT MODE, BG N/C
[2017-02-06] MEDS: WARFARIN SODIUM 5 MG TABLET PO SCH (17:00)
[2017-02-06] MEDS ORDERED: SECONDARY IV SET 1 EA INFUS.SET MC ONE (21:25)
[2017-02-07] VITALS (27 sets, daily range): BP systolic 90–132; BP diastolic 36–84
[2017-02-07] MEDS: HYDROCODONE/APAP 5/325MG 1 EACH TABLET PO PRN ×2 (01:04→08:18)
[2017-02-07] MEDS: IPRATROPIUM NEB FS 0.5 MG/2.5 ML AMPUL.NEB NEB SCH ×6 (03:53→23:30)
[2017-02-07] MEDS: ALBUTEROL FS 2.5 MG/3 ML VIAL.NEB NEB SCH ×6 (03:53→23:30)
[2017-02-07] MEDS: MEROPENEM 500 MG in IV NS 0.9% 50 ML IV SCH ×3 (04:23→20:47)
[2017-02-07 05:01] LABS: BASOPHILS % (AUTO) 0.2 % (0.0-2.0); EOSINOPHILS # (AUTO) 0.2 /CMM (0.0-0.7); EOSINOPHILS % (AUTO) 1.5 % (0.0-6.0); HEMATOCRIT 28 % (33-45); HEMOGLOBIN 9.2 g/dL (11.5-14.8); LYMPHOCYTES # (AUTO) 0.9 /CMM (0.8-4.8); LYMPHOCYTES % (AUTO) 5.9 % (20.0-44.0); MEAN CORPUSCULAR HEMOGLOBIN 34 PG (26.0-33.0); MEAN CORPUSCULAR HGB CONC 33 g/dl (31.0-36.0); MEAN CORPUSCULAR VOLUME 106 fL (82-100); MONOCYTES # (AUTO) 1.5 /CMM (0.1-1.30); MONOCYTES % (AUTO) 10.2 % (2.0-12.0); NEUTROPHILS % (AUTO) 82.2 % (43.0-81.0); PLATELET COUNT (AUTO) 331 /CMM (150-450); RDW COEFFICIENT OF VARIATION 21.2 (11.5-15.0); RED BLOOD CELL COUNT(AUTO) 2.67 MIL/uL (4.0-5.2); WHITE BLOOD COUNT (AUTO) 14.6 K/uL (4.3-11.0)
[2017-02-07 05:11] LABS: CALCIUM, SERUM 7.9 mg/dL (8.5-10.1); POTASSIUM 4.6 mmol/L (3.5-5.1)
[2017-02-07 05:12] LABS: CREATININE 0.7 mg/dL (0.6-1.3)
[2017-02-07 05:36] LABS: INR 2.98 (0.87-1.13); PROTHROMBIN TIME 34.2 SECS (9.5-12.7)
[2017-02-07 05:51] LABS: LYMPHOCYTES % (MANUAL) 7 % (16-48); MONOCYTES % (MANUAL) 10 % (0-11.0); NEUTROPHILS % (MANUAL) 83 (42-76); PLATELET ESTIMATE ADEQUATE
[2017-02-07 05:52] LABS: ANISOCYTOSIS 2+; HYPOCHROMASIA 1+
[2017-02-07] MEDS: ACETYLCYSTEINE 10% SOLN 400 MG/4 ML VIAL NEB SCH ×3 (07:27→23:30)
[2017-02-07] MEDS: CALCIUM CARBONATE (1250) 500 MG TABLET PO SCH (08:17)
[2017-02-07] MEDS: PANTOPRAZOLE 40 MG TABLET.DR PO SCH (08:17)
[2017-02-07] MEDS: GABAPENTIN 300 MG CAPSULE PO SCH ×4 (08:17→20:47)
[2017-02-07] MEDS: DOCUSATE SODIUM 100 MG CAPSULE PO SCH (08:17)
[2017-02-07] MEDS: CITALOPRAM HYDROBROMIDE 20 MG TABLET PO SCH (08:17)
[2017-02-07] MEDS: LACTOBACILLUS RHAMNOSUS GG 1 EACH CAP.SPRINK PO SCH ×2 (08:18→17:53)
[2017-02-07] MEDS: FUROSEMIDE 20 MG TABLET PO SCH (08:19)
[2017-02-07] MEDS: POTASSIUM CHLORIDE 20 MEQ TAB.PRT.SR PO SCH (08:19)
[2017-02-07] MEDS: AMLODIPINE BESYLATE 5 MG TABLET PO SCH (08:19)
[2017-02-07] MEDS: MAGNESIUM OXIDE 400 MG TABLET PO SCH (08:19)
[2017-02-07] MEDS: ENOXAPARIN SODIUM 100 MG/ML DISP.SYRIN SQ SCH (08:20)
[2017-02-07] MEDS ORDERED: VANCOMYCIN 0.75 GM in IV D5W 250 ML IV SCH ×2 (09:00→13:00)
[2017-02-07] MEDS ORDERED: FUROSEMIDE 20 MG/2 ML VIAL IV ONE (12:00)
[2017-02-07] MEDS: HYDROMORPHONE 1 MG/1 ML DISP.SYRIN IV PRN ×2 (13:59→19:37)
[2017-02-07] MEDS: WARFARIN SODIUM 5 MG TABLET PO SCH (17:00)
[2017-02-07] MEDS ORDERED: SET RED CAP 1 EA INFUS.SET MC ONE (20:40)
[2017-02-07] MEDS ORDERED: IV SET PRIMARY PUMP SET 1 EA INFUS.SET MC ONE (20:40)
[2017-02-07] MEDS ORDERED: SECONDARY IV SET 1 EA INFUS.SET MC ONE (20:40)
[2017-02-07] MEDS ORDERED: IV NS 0.9% 250 ML IV ONE (20:41)
[2017-02-08] MEDS: ALBUTEROL FS 2.5 MG/3 ML VIAL.NEB NEB SCH ×6 (03:07→23:38)
[2017-02-08] MEDS: IPRATROPIUM NEB FS 0.5 MG/2.5 ML AMPUL.NEB NEB SCH ×6 (03:07→23:38)
[2017-02-08 03:10] VITALS: BP 99/48
[2017-02-08] MEDS: HYDROCODONE/APAP 5/325MG 1 EACH TABLET PO PRN (03:10)
[2017-02-08] MEDS: MEROPENEM 500 MG in IV NS 0.9% 50 ML IV SCH ×3 (04:06→21:05)
[2017-02-08 07:06] LABS: BASOPHILS # (AUTO) 0.1 /CMM (0.0-0.2); BASOPHILS % (AUTO) 0.4 % (0.0-2.0); EOSINOPHILS # (AUTO) 0.4 /CMM (0.0-0.7); HEMATOCRIT 31 % (33-45); HEMOGLOBIN 9.9 g/dL (11.5-14.8); LYMPHOCYTES # (AUTO) 0.7 /CMM (0.8-4.8); LYMPHOCYTES % (AUTO) 5.1 % (20.0-44.0); MEAN CORPUSCULAR HEMOGLOBIN 34 PG (26.0-33.0); MEAN CORPUSCULAR HGB CONC 32 g/dl (31.0-36.0); MEAN CORPUSCULAR VOLUME 105 fL (82-100); MONOCYTES # (AUTO) 1.8 /CMM (0.1-1.30); MONOCYTES % (AUTO) 12.5 % (2.0-12.0); NEUTROPHILS # (AUTO) 11.4 /CMM (1.8-8.9); PLATELET COUNT (AUTO) 338 /CMM (150-450); RDW COEFFICIENT OF VARIATION 20.7 (11.5-15.0); RED BLOOD CELL COUNT(AUTO) 2.89 MIL/uL (4.0-5.2); WHITE BLOOD COUNT (AUTO) 14.5 K/uL (4.3-11.0)
[2017-02-08 07:08] LABS: CALCIUM, SERUM 7.9 mg/dL (8.5-10.1); CREATININE 0.8 mg/dL (0.6-1.3); POTASSIUM 4.4 mmol/L (3.5-5.1)
[2017-02-08 07:32] LABS: INR 2.92 (0.87-1.13); PROTHROMBIN TIME 33.4 SECS (9.5-12.7)
[2017-02-08 08:00] VITALS: BP 130/70
[2017-02-08] MEDS: CALCIUM CARBONATE (1250) 500 MG TABLET PO SCH (08:44)
[2017-02-08] MEDS: LACTOBACILLUS RHAMNOSUS GG 1 EACH CAP.SPRINK PO SCH ×2 (08:45→17:27)
[2017-02-08] MEDS: DOCUSATE SODIUM 100 MG CAPSULE PO SCH (08:45)
[2017-02-08] MEDS: CITALOPRAM HYDROBROMIDE 20 MG TABLET PO SCH (08:46)
[2017-02-08] MEDS: MAGNESIUM OXIDE 400 MG TABLET PO SCH (08:46)
[2017-02-08] MEDS: ACETAMINOPHEN 325 MG TABLET PO PRN (08:47)
[2017-02-08] MEDS: POTASSIUM CHLORIDE 20 MEQ TAB.PRT.SR PO SCH (08:47)
[2017-02-08] MEDS: GABAPENTIN 300 MG CAPSULE PO SCH ×4 (08:50→21:05)
[2017-02-08] MEDS: PANTOPRAZOLE 40 MG TABLET.DR PO SCH (08:55)
[2017-02-08] MEDS ORDERED: FUROSEMIDE 20 MG/2 ML VIAL IV ONE (10:00)
[2017-02-08 10:20] LABS: ABG BASE EXCESS 7.9 mmol/L; ABG OXYGEN SATURATION 90.2 % (92.0-98.5); ABG PCO2 53.2 mmHg (35.0-45.0); ABG PH 7.418 (7.350-7.450); ABG PO2 56.4 mmHg (75.0-100.0); ABG TOTAL HEMOGLOBIN 10.1 G/dL (12.0-16.0); AaDO2 145.8 mmHg; COHb 2.4 % (0.5-1.5); MetHb 0.5 % (0.0-1.5); O2Hb 87.6 % (94.0-97.0); SITE, ABG Right Radial; VENT MODE, BG nasal cannula
[2017-02-08] MEDS: ACETYLCYSTEINE 10% SOLN 400 MG/4 ML VIAL NEB SCH ×3 (11:27→23:38)
[2017-02-08] MEDS ORDERED: SECONDARY IV SET 1 EA INFUS.SET MC ONE (13:51)
[2017-02-08] MEDS ORDERED: IV SET PRIMARY PUMP SET 1 EA INFUS.SET MC ONE (13:51)
[2017-02-08] MEDS ORDERED: IV NS 0.9% 250 ML IV ONE (13:51)
[2017-02-08] MEDS: WARFARIN SODIUM 5 MG TABLET PO SCH (17:35)
[2017-02-08] MEDS: HYDROMORPHONE 1 MG/1 ML DISP.SYRIN IV PRN (17:43)
[2017-02-08 20:00] VITALS: BP 110/62
[2017-02-08 22:00] VITALS: BP 110/62
[2017-02-09] VITALS: BP_SYST 93; BP_DIAS 47; BP_DIAS 52
[2017-02-09 00:43] VITALS: BP 103/52
[2017-02-09] MEDS ORDERED: VANCOMYCIN 0.75 GM in IV D5W 250 ML IV SCH (01:00)
[2017-02-09] MEDS: IPRATROPIUM NEB FS 0.5 MG/2.5 ML AMPUL.NEB NEB SCH ×5 (03:05→19:29)
[2017-02-09] MEDS: ALBUTEROL FS 2.5 MG/3 ML VIAL.NEB NEB SCH ×5 (03:05→19:29)
[2017-02-09 04:00] VITALS: BP 104/57
[2017-02-09] MEDS: MEROPENEM 500 MG in IV NS 0.9% 50 ML IV SCH ×2 (05:32→13:27)
[2017-02-09 06:58] LABS: BASOPHILS % (AUTO) 0.2 % (0.0-2.0); EOSINOPHILS # (AUTO) 0.2 /CMM (0.0-0.7); EOSINOPHILS % (AUTO) 1.5 % (0.0-6.0); HEMATOCRIT 31 % (33-45); HEMOGLOBIN 9.8 g/dL (11.5-14.8); LYMPHOCYTES # (AUTO) 0.8 /CMM (0.8-4.8); MEAN CORPUSCULAR HEMOGLOBIN 34 PG (26.0-33.0); MEAN CORPUSCULAR HGB CONC 32 g/dl (31.0-36.0); MEAN CORPUSCULAR VOLUME 105 fL (82-100); MONOCYTES # (AUTO) 1.7 /CMM (0.1-1.30); MONOCYTES % (AUTO) 12.4 % (2.0-12.0); NEUTROPHILS # (AUTO) 11.1 /CMM (1.8-8.9); NEUTROPHILS % (AUTO) 79.9 % (43.0-81.0); PLATELET COUNT (AUTO) 301 /CMM (150-450); WHITE BLOOD COUNT (AUTO) 13.9 K/uL (4.3-11.0)
[2017-02-09 07:16] VITALS: BP 110/62
[2017-02-09 07:28] LABS: CALCIUM, SERUM 7.9 mg/dL (8.5-10.1); CREATININE 0.7 mg/dL (0.6-1.3); POTASSIUM 4.4 mmol/L (3.5-5.1)
[2017-02-09 08:00] VITALS: BP 110/62
[2017-02-09] MEDS: ACETYLCYSTEINE 10% SOLN 400 MG/4 ML VIAL NEB SCH ×2 (08:21→15:48)
[2017-02-09] MEDS: POTASSIUM CHLORIDE 20 MEQ TAB.PRT.SR PO SCH (09:18)
[2017-02-09] MEDS: LACTOBACILLUS RHAMNOSUS GG 1 EACH CAP.SPRINK PO SCH ×2 (09:18→17:35)
[2017-02-09] MEDS: PANTOPRAZOLE 40 MG TABLET.DR PO SCH (09:18)
[2017-02-09] MEDS: DOCUSATE SODIUM 100 MG CAPSULE PO SCH (09:18)
[2017-02-09] MEDS: MAGNESIUM OXIDE 400 MG TABLET PO SCH (09:18)
[2017-02-09] MEDS: CITALOPRAM HYDROBROMIDE 20 MG TABLET PO SCH (09:18)
[2017-02-09] MEDS: CALCIUM CARBONATE (1250) 500 MG TABLET PO SCH (09:18)
[2017-02-09] MEDS: HYDROCODONE/APAP 5/325MG 1 EACH TABLET PO PRN (09:19)
[2017-02-09] MEDS: GABAPENTIN 300 MG CAPSULE PO SCH ×3 (09:21→17:35)
[2017-02-09] MEDS: ALENDRONATE 70 MG TABLET PO SCH (09:37)
[2017-02-09] MEDS ORDERED: SECONDARY IV SET 1 EA INFUS.SET MC ONE (13:20)
[2017-02-09] MEDS ORDERED: MERO500P IV (15:09)
[2017-02-09] MEDS ORDERED: VANC750P5 IV (15:09)
[2017-02-09 16:00] VITALS: BP 102/55
[2017-02-09] MEDS: WARFARIN SODIUM 5 MG TABLET PO SCH (17:00)
[2017-02-09 18:48] LABS: INR 3.74 (0.87-1.13); PROTHROMBIN TIME 43.5 SECS (9.5-12.7)
[2017-02-10] MEDS ORDERED: FUROSEMIDE 20 MG TABLET PO SCH (09:00)
== END 2017-02-09 18:30 | DRG 871 ==
LOC: ER 23:11 → MED 01-30 03:00 → ICU 02-05 19:54 → MEDSG2 02-07 19:27 → TELE 02-08 11:22
PROVIDERS: ADMIT Nurse Practitioner Acute Care; ATTEND Family Medicine
PROC: 30233N1 Transfusion of Nonautologous Red Blood Cells into Peripheral Vein, Percutaneous Approach (ICD-10-PCS; principal; 2017-01-31)
PROC: 5A09357 Assistance with Respiratory Ventilation, Less than 24 Consecutive Hours, Continuous Positive Airway Pressure (ICD-10-PCS; 2017-02-06)
DX: A41.9 Sepsis, unspecified organism (principal); J96.20 Acute and chronic respiratory failure, unspecified whether with hypoxia or hypercapnia; I50.33 Acute on chronic diastolic (congestive) heart failure; J18.9 Pneumonia, unspecified organism; G82.20 Paraplegia, unspecified; J44.0 Chronic obstructive pulmonary disease with (acute) lower respiratory infection; I50.32 Chronic diastolic (congestive) heart failure; E66.2 Morbid (severe) obesity with alveolar hypoventilation; J98.11 Atelectasis; M84.40XA Pathological fracture, unspecified site, initial encounter for fracture; Z74.01 Bed confinement status; Z96.642 Presence of left artificial hip joint; I25.10 Atherosclerotic heart disease of native coronary artery without angina pectoris; E78.5 Hyperlipidemia, unspecified; G62.9 Polyneuropathy, unspecified; Z86.718 Personal history of other venous thrombosis and embolism; M81.0 Age-related osteoporosis without current pathological fracture; F17.210 Nicotine dependence, cigarettes, uncomplicated; E83.42 Hypomagnesemia; I11.0 Hypertensive heart disease with heart failure; D64.9 Anemia, unspecified; G14 Postpolio syndrome; I48.0 Paroxysmal atrial fibrillation; T17.990A Other foreign object in respiratory tract, part unspecified in causing asphyxiation, initial encounter; L89.319 Pressure ulcer of right buttock, unspecified stage; Y95 Nosocomial condition; Z79.01 Long term (current) use of anticoagulants; L89.159 Pressure ulcer of sacral region, unspecified stage
CPT/HCPCS: 36415; 36600; 71010-TC; 72192-TC; 72195-TC; 73564-TC; 73721-TC; 80048-TC; 80202-TC; 82962-TC; 83605-TC; 83735-TC; 84100-TC; 84484-TC; 85025-TC; 85378-TC; 85610-TC; 85730-TC; 86850-TC; 86921-TC; 87040-TC; 87081-TC; 94668-TC; 94799-TC; 97001-TC; A4216; A4606; A6253; A6403; J0744; J1170; J1650; J1940; J1956; J2185; J2405; J3370; J3430; J3475; J7050; J7060; P9016-BL; Q9967; Z7610

== ENCOUNTER 2017-03-06 18:44 | Inpatient (IN) | payer MEDICARE ==
[~2017-03-06] VITALS: Ht 160 cm; Wt 78.5 kg
[~2017-03-06 18:44] MED LIST changes: +ACET-868 PO; +ALEN70TA3 PO; +BISA10SU8 RC; +CALC500T71 PO; +CITA20TA19 PO; -Citalopram Hydrobromide PO; +FURO-145 PO; +GABA-534 PO; +MAGN400T26 PO; +MERO500P IV; +NA P133E RC; -ONCOUMADIN PO; +POTA20TA83 PO; +VANC750P5 IV
--- NOTE | 2017-03-06 18:50 | NUR ---
PT CHONG FROM INTERMEDIATE FOR POSSIBLE ASPIRATION FROM FOOD. PT AAOX1. SATING AT 87% RA, PLACED ON A NONREBREATHER MASK. AT BS FOR EVAL. OTHER VSS. SAFETY AND [id number] MEASURES PROVIDED. IV ACCESS STARTED. BLOOD DRAWN FOR LABS. WILL MONITOR.
--- NOTE | 2017-03-06 19:00 | NUR ---
URINE SAMPLE OBTAINED, SENT.
[2017-03-06 19:09] LABS: BASOPHILS # (AUTO) 0.1 /CMM (0.0-0.2); BASOPHILS % (AUTO) 0.7 % (0.0-2.0); EOSINOPHILS # (AUTO) 0.6 /CMM (0.0-0.7); HEMATOCRIT 35 % (33-45); HEMOGLOBIN 11.6 g/dL (11.5-14.8); LYMPHOCYTES % (AUTO) 15.2 % (20.0-44.0); MEAN CORPUSCULAR HEMOGLOBIN 34 PG (26.0-33.0); MEAN CORPUSCULAR HGB CONC 33 g/dl (31.0-36.0); MEAN CORPUSCULAR VOLUME 103 fL (82-100); MONOCYTES # (AUTO) 2.2 /CMM (0.1-1.30); MONOCYTES % (AUTO) 11.1 % (2.0-12.0); NEUTROPHILS # (AUTO) 13.7 /CMM (1.8-8.9); PLATELET COUNT (AUTO) 224 /CMM (150-450); RDW COEFFICIENT OF VARIATION 21.1 (11.5-15.0); RED BLOOD CELL COUNT(AUTO) 3.41 MIL/uL (4.0-5.2); WHITE BLOOD COUNT (AUTO) 19.6 K/uL (4.3-11.0)
[2017-03-06 19:12] LABS: APPEARANCE,URINE Clear (CLEAR); BILIRUBIN,URINE Negative (NEGATIVE); BLOOD, URINE Trace-intact Ery/uL (NEGATIVE); COLOR,URINE Yellow (YELLOW); KETONES,URINE Negative (NEGATIVE); LEUKOCYTE ESTERASE ,URINE Trace (NEGATIVE); NITRITE, URINE Negative (NEGATIVE); PH,URINE 8.5 (5.0-8.0); PROTEIN,URINE 100 mg/dl (NEGATIVE); UGLUCOSE Negative (NEGATIVE)
[2017-03-06 19:20] LABS: CALCIUM, SERUM 7.6 mg/dL (8.5-10.1); CARBON DIOXIDE 35 mmol/L (21-32); CHLORIDE 99 mmol/L (98-107); CREATININE 0.7 mg/dL (0.6-1.3); GLUCOSE 153 mg/dL (74-106); POTASSIUM 5.1 mmol/L (3.5-5.1); SODIUM SERUM 133 mmol/L (136-145); UREA NITROGEN, BLOOD 25 mg/dL (7-18)
[2017-03-06 19:22] LABS: INR 1.9 (0.87-1.13); PROTHROMBIN TIME 20.4 SECS (9.5-12.7)
[2017-03-06 19:26] LABS: ALANINE AMINOTRANSFERASE 25 U/L (12-78); ALBUMIN 2.4 g/dL (3.4-5.0); ALKALINE PHOSPHATASE 194 U/L (46-116); ASPARTATE AMINOTRANSFERASE 34 U/L (15-37); BILIRUBIN,DIRECT 0.3 mg/dL (0.0-0.2); BILIRUBIN,TOTAL 0.9 mg/dL (0.2-1.0); TOTAL PROTEIN, SERUM 6.8 g/dL (6.4-8.2)
[2017-03-06 19:27] LABS: BACTERIA,URINE Few /HPF (None Seen); SQUAMOUS EPITHELIAL CELL,UR Few /HPF (None Seen)
[2017-03-06 19:28] LABS: TROPONIN I < 0.017 ng/mL (0.00-0.056)
--- NOTE | 2017-03-06 20:09 | NUR ---
GROUP CALLED, DIRECTOR SURGICAL, PAGED TO CALL BACK
--- NOTE | 2017-03-06 20:14 | NUR ---
CALLED NURSING SUP. FOR ICU BED
[2017-03-06] MEDS ORDERED: IV SET PRIMARY PUMP SET 1 EA INFUS.SET MC ONE (20:24)
[2017-03-06] MEDS ORDERED: PIPERACILLIN /TAZOBACTAM 3.375 G in IV D5W 50 ML IV ONE (20:30)
[2017-03-06] MEDS ORDERED: VANCOMYCIN 1 GM in IV D5W 250 ML IV ONE (20:30)
--- NOTE | 2017-03-06 20:39 | NUR ---
MEDICATED PT ORDERED
--- NOTE | 2017-03-06 20:40 | NUR ---
EMT AT BED SIDE FOR EVAL
--- NOTE | 2017-03-06 20:52 | NUR ---
MEDICATED PT ORDERED
--- NOTE | 2017-03-06 21:23 | NUR ---
NO FLUID REASSESMENT NEEDED BECAUSE NO FLUID GIVEN PER MD SHELTON
[2017-03-06 21:35] VITALS: BP 102/61
--- NOTE | 2017-03-06 21:47 | NUR ---
TRANSPOTRED PT TO [facility] BED WITH INCIDENT
--- NOTE | 2017-03-06 22:36 | NUR ---
RN:TD: PT RECEIVED FROM ED FOR ASPIRATION PNA. PT ALERT AND ORIENTED TO SELF BUT IS CONFUSED FOR DATE AND PLACE. PT ABLE TO FOLLOW COMMANDS. PT HAS MODERATE AMOUNT OF RESPIRATORY DISTRESS, WITH INCREASED WOB, O2 SAT FLUCTUATES BETWEEN 87-92 ON 100% NONREBREATHER. PT HAD INTACT IV. PT HAS MULTIPLE SKIN ISSUES, SEE WOUND DOCUMENTATION. ZOSYN AND VANCO GIVEN IN ED. NO REACTION NOTED WITH ZOSYN ADMIN WITH PCN ALLERGY. PT HAS MODERATE AMOUNT OF EDEL URINE DRAINING FROM SUPRAPUBIC CATHETER. BLOOD PRESSURE STABLE AT THIS TIME. HR CONTROLLED AFIB ON TELE MONITOR. CALL LIGHT IN REACH. ASPIRATION AND FALL PRECAUTIONS IN PLACE. WILL CONTINUE TO MONITOR CLOSELY. DR JORDEN GILES FOR ADMITTING ORDERS, PENDING RESPONSE.
[2017-03-06] MEDS ORDERED: ALBUTEROL FS 2.5 MG/3 ML VIAL.NEB NEB PRN (23:30)
[2017-03-06] MEDS ORDERED: IPRATROPIUM NEB FS 0.5 MG/2.5 ML AMPUL.NEB NEB PRN (23:30)
[2017-03-07] VITALS (7 sets, daily range): BP systolic 97–110; BP diastolic 55–68
[2017-03-07] MEDS ORDERED: IPRATROPIUM NEB FS 0.5 MG/2.5 ML AMPUL.NEB ONE (02:03)
[2017-03-07] MEDS ORDERED: ALBUTEROL FS 2.5 MG/3 ML VIAL.NEB ONE (02:03)
--- NOTE | 2017-03-07 02:09 | NUR ---
RN:TD; PT CONTINUES TO REMOVE NONREBREATHER DESPITE EDUCATION. RT CALLED TO THE BEDSIDE TO ADMIN BREATHING TX AND PERFORM DEEP SUCTIONING. PER DR LEONARDO PT IS DNR/DNI.
[2017-03-07 07:19] LABS: BASOPHILS % (AUTO) 0.1 % (0.0-2.0); EOSINOPHILS # (AUTO) 0.2 /CMM (0.0-0.7); EOSINOPHILS % (AUTO) 0.8 % (0.0-6.0); HEMATOCRIT 31 % (33-45); HEMOGLOBIN 10.5 g/dL (11.5-14.8); LYMPHOCYTES # (AUTO) 1.2 /CMM (0.8-4.8); LYMPHOCYTES % (AUTO) 5.6 % (20.0-44.0); MEAN CORPUSCULAR HEMOGLOBIN 35 PG (26.0-33.0); MEAN CORPUSCULAR HGB CONC 34 g/dl (31.0-36.0); MEAN CORPUSCULAR VOLUME 104 fL (82-100); MONOCYTES # (AUTO) 1.6 /CMM (0.1-1.30); MONOCYTES % (AUTO) 7.5 % (2.0-12.0); PLATELET COUNT (AUTO) 198 /CMM (150-450); RDW COEFFICIENT OF VARIATION 22.4 (11.5-15.0); RED BLOOD CELL COUNT(AUTO) 2.99 MIL/uL (4.0-5.2); WHITE BLOOD COUNT (AUTO) 20.9 K/uL (4.3-11.0)
[2017-03-07 07:39] LABS: CALCIUM, SERUM 7.6 mg/dL (8.5-10.1); CARBON DIOXIDE 34 mmol/L (21-32); CHLORIDE 99 mmol/L (98-107); CREATININE 0.5 mg/dL (0.6-1.3); GLUCOSE 108 mg/dL (74-106); POTASSIUM 4.5 mmol/L (3.5-5.1); SODIUM SERUM 138 mmol/L (136-145); UREA NITROGEN, BLOOD 24 mg/dL (7-18)
--- NOTE | 2017-03-07 08:00 | NUR ---
RESEARCH DIETITIAN RECEIVED PT IN BED AO X1, AFIB ON THE MONITOR SBP STABLE, PT IS ON 10L MASK SAT 92%, CRACKLES AND DIMINISHED BREATH SOUNDS, EDEMA PRESENT ALL EXTREMITIES, PT HAS LOWER EXTREMITY DECOLORIZATION AND SCABS, IV ACCCESS PATENT, OFF LOAD ALL EXTREMITES ON PILLOWS TURN AND REPOSITION IN BED FALL PRECAUTIONS TAKEN CALL LIGHT W/ IN REACH WILL CONTINUE TO MONITORE
[2017-03-07] MEDS ORDERED: FEE PK DOSING 1 MIN EA MC ONE (08:21)
[2017-03-07] MEDS ORDERED: Z GUARD REMEDY 2 OZ OINT TP PRN (08:30)
--- NOTE | 2017-03-07 08:36 | NUR ---
WOUND CARE CONSULT: PT PRESENTS WITH LEFT HIP INCISION WHICH IS CLOSED EXCEPT FOR PROXIMAL PORTION WITH SMALL AMOUNT OF WEEPING. RECOMMEND SURGICAL CONSULT/FOLLOW UP. RASH NOTED WITH PEELING SKIN TO BUTTOCKS, PERINEUM AND GROIN AREAS, PRESENT ON ADMISSION. SUPRAPUBIC CATH NOTED. PT ON MICHOACANO ISOFLEX LOW AIRLOSS BED. ALL SKIN PROTECTION RECOMMENDATIONS DISCUSSED WITH NURSING STAFF. MD IN AGREEMENT WITH PLAN OF CARE. Addendum: 03/07/17 at 0838 by ASHLEY WILL WNDNU Amended: Links added.
[2017-03-07] MEDS ORDERED: FERR-58 PO (09:07)
[2017-03-07] MEDS ORDERED: CRAN3875 PO (09:07)
[2017-03-07] MEDS ORDERED: ZINC220T PO (09:07)
[2017-03-07] MEDS ORDERED: MULT-213 PO (09:07)
[2017-03-07] MEDS ORDERED: DULO30CA2 PO (09:07)
[2017-03-07] MEDS ORDERED: ASCO500T9 PO (09:07)
[2017-03-07] MEDS ORDERED: LACT10SO PO (09:07)
[2017-03-07] MEDS ORDERED: CRAN425C PO (09:07)
[2017-03-07] MEDS ORDERED: DILT30TA2 PO (09:07)
[2017-03-07] MEDS ORDERED: HYDR-552 PO (09:07)
[2017-03-07] MEDS: CLOTRIMAZOLE/BETAMETASONE DIPROPIONATE 15 GM TUBE TP SCH ×2 (09:23→17:55)
[2017-03-07] MEDS: Z GUARD REMEDY 2 OZ OINT TP SCH (09:23)
[2017-03-07] MEDS: ALBUTEROL FS 2.5 MG/3 ML VIAL.NEB NEB SCH ×3 (11:41→20:07)
[2017-03-07] MEDS: IPRATROPIUM NEB FS 0.5 MG/2.5 ML AMPUL.NEB NEB SCH ×3 (11:42→20:07)
[2017-03-07] MEDS ORDERED: IV SET PRIMARY PUMP SET 1 EA INFUS.SET MC ONE ×2 (11:51→21:08)
[2017-03-07] MEDS ORDERED: LEVOFLOXACIN 750 MG /D5W 150ML 750 MG in PREMIX 1 EA IV SCH ×4 (12:00)
[2017-03-07] MEDS ORDERED: BISACODYL SUPP (10 MG) 10 MG/SUPP.RECT SUPP.RECT RC PRN (14:00)
[2017-03-07] MEDS ORDERED: NA PHOS,M-B/NA PHOS,DI-BA 1 EA ENEMA RC PRN (14:00)
[2017-03-07] MEDS ORDERED: MAGNESIUM HYDROXIDE 30 ML UDC PO PRN (14:00)
[2017-03-07] MEDS ORDERED: ACETAMINOPHEN 325 MG TABLET PO PRN (14:00)
[2017-03-07] MEDS: VANCOMYCIN 1 GM in IV D5W 250 ML IV SCH (14:38)
--- NOTE | 2017-03-07 14:39 | NUR ---
TIMBER MANAGEMENT SPECIALIST REPORT GIVEN TO KISHORE MOREAU FOR CONTINUITY OF CARE, NO CHANGES DURING SHIFT OR DISTRESS PT IS MORE AWAKE FROM THE MORNING, WOUND CARE DONE PT TURNED AND REPOSITIONED IV ACCESS PATENT INFUSING VANCO ORDERED.
[2017-03-07] MEDS: GABAPENTIN 300 MG CAPSULE PO SCH ×2 (16:14→21:14)
--- NOTE | 2017-03-07 16:14 | NUR ---
GABAPENTIN NON-ADMINISTERED, SWALLOW EVAL PENDING. WILL CONTINUE TO MONITOR.
[2017-03-07] MEDS: NYSTATIN CREAM 15 GM TUBE TP SCH (17:55)
[2017-03-07] MEDS ORDERED: Medication Not On Formulary EA (Ipratropium/Albuterol Sulfate (Duoneb 2.5-0.5 Mg/3 Ml So IH SCH (19:30)
--- NOTE | 2017-03-07 19:30 | NUR ---
MS/RN OPENING NOTES RECEIVED PT, A/OX1, ON 10L SIMPLE MASK, BREATHING EVEN AND UNLABORED. NO S/S SOB OR DISTRESS NOTED. NO S/S OF PAIN. SUPRAPUBIC CATHETER NOTED. IV TO LEFT HAND PATENT AND INTACT. BED IN LOW/LOCKED POSITION WITH HOB ELEVATED. BED ALARM ON AND CALL LIGHT IN REACH. WILL CONTINUE TO MONITOR
[2017-03-07] MEDS ORDERED: SECONDARY IV SET 1 EA INFUS.SET MC ONE (21:05)
[2017-03-07] MEDS ORDERED: IV NS 0.9% 250 ML IV ONE (21:08)
[2017-03-07] MEDS: MEROPENEM 500 MG in IV NS 0.9% 50 ML IV SCH (21:13)
[2017-03-07] MEDS: DOCUSATE SODIUM 100 MG CAPSULE PO SCH (21:14)
--- NOTE | 2017-03-07 23:33 | NUR ---
MS/RN NOTES NO S/S OF ADVERSE REACTION NOTED POST INFUSION OF MERREM. WILL CONTINUE TO MONITOR
[2017-03-08] MEDS: ALBUTEROL FS 2.5 MG/3 ML VIAL.NEB NEB SCH ×7 (00:05→23:46)
[2017-03-08] MEDS: IPRATROPIUM NEB FS 0.5 MG/2.5 ML AMPUL.NEB NEB SCH ×7 (00:05→23:46)
[2017-03-08 04:00] VITALS: BP 99/43
--- NOTE | 2017-03-08 06:51 | NUR ---
MS/RN CLOSING NOTES PT ASLEEP, AROUSABLE TO NEARBY NOISE. A/OX1, RT TAPERED DOWN O2 TO 5LPM VIA NC. PT TOLERATING WELL. BREATHING EVEN AND UNLABORED. NO S/S OF DISTRESS NOTED. SUPRAPUBIC CATHETER IN PLACE AND DRAINING WELL. TURNED/REPOSITIONED Q2H, EXTREMITIES OFFLOADED. SKIN CARE PROVIDED. IV TO LEFT HAND PATENT AND INTACT. BED IN LOW/LOCKED POSITION WITH CALL LIGHT IN REACH. BED ALARM ON AND SIDE RAILS UPX2. ALL NEEDS MET AND ATTENDED. MADE PT COMFORTABLE THROUGHOUT SHIFT. WILL ENDORSE TO DAY SHIFT RN JAY.
[2017-03-08 07:52] LABS: INR 1.39 (0.87-1.13); PROTHROMBIN TIME 15.2 SECS (9.5-12.7)
[2017-03-08 08:00] VITALS: BP 111/52
[2017-03-08 08:02] LABS: CALCIUM, SERUM 7.6 mg/dL (8.5-10.1); CARBON DIOXIDE 32 mmol/L (21-32); CHLORIDE 101 mmol/L (98-107); CREATININE 0.5 mg/dL (0.6-1.3); GLUCOSE 87 mg/dL (74-106); POTASSIUM 4.1 mmol/L (3.5-5.1); SODIUM SERUM 138 mmol/L (136-145); UREA NITROGEN, BLOOD 20 mg/dL (7-18)
[2017-03-08] MEDS: CALCIUM CARBONATE 500 MG TAB.CHEW PO SCH (08:36)
[2017-03-08] MEDS: CITALOPRAM HYDROBROMIDE 20 MG TABLET PO SCH (08:36)
[2017-03-08] MEDS: AMLODIPINE BESYLATE 5 MG TABLET PO SCH (08:37)
[2017-03-08] MEDS: MAGNESIUM OXIDE 400 MG TABLET PO SCH (08:37)
[2017-03-08] MEDS: POTASSIUM CHLORIDE 20 MEQ TAB.PRT.SR PO SCH (08:37)
[2017-03-08] MEDS: FUROSEMIDE 20 MG TABLET PO SCH (08:37)
[2017-03-08] MEDS: GABAPENTIN 300 MG CAPSULE PO SCH ×4 (08:45→21:16)
[2017-03-08] MEDS: MEROPENEM 500 MG in IV NS 0.9% 50 ML IV SCH ×2 (08:45→21:16)
[2017-03-08] MEDS: VANCOMYCIN 1 GM in IV D5W 250 ML IV SCH (08:45)
[2017-03-08] MEDS: Z GUARD REMEDY 2 OZ OINT TP SCH (08:46)
[2017-03-08] MEDS: NYSTATIN CREAM 15 GM TUBE TP SCH ×2 (08:46→17:31)
[2017-03-08] MEDS: CLOTRIMAZOLE/BETAMETASONE DIPROPIONATE 15 GM TUBE TP SCH ×2 (08:46→17:31)
[2017-03-08] MEDS: HYDROCODONE/APAP 5/325MG 1 EACH TABLET PO PRN ×3 (09:39→21:17)
[2017-03-08 12:20] VITALS: BP 101/43
[2017-03-08 16:00] VITALS: BP 104/64
[2017-03-08] MEDS: LACTOBACILLUS RHAMNOSUS GG 1 EACH CAP.SPRINK PO SCH (17:24)
[2017-03-08] MEDS ORDERED: SECONDARY IV SET 1 EA INFUS.SET MC ONE (17:33)
--- NOTE | 2017-03-08 19:30 | NUR ---
MS RN INITIAL NOTES RECEIVED PATIENT A/OX1, DENIES PAIN OR DISCOMFORT. RESPIRATIONS EVEN AND UNLABORED, ON 2LPMO2 VIA NC. SKIN WARM AND DRY TO TOUCH. SIDE RAILS UP AND LOCKED. BED KEPT AT LOWEST POSITION. ASPIRATION PRECAUTIONS OBSERVED. CALL LIGHT KEPT WITHIN EASY REACH. WILL CONTINUE TO MONITOR.
[2017-03-08 20:00] VITALS: BP 107/57
[2017-03-08] MEDS: DOCUSATE SODIUM 100 MG CAPSULE PO SCH (21:16)
[2017-03-09] MEDS ORDERED: IV NS 0.9% 250 ML IV ONE (01:44)
[2017-03-09] MEDS ORDERED: SECONDARY IV SET 1 EA INFUS.SET MC ONE (01:49)
[2017-03-09] MEDS: VANCOMYCIN 1 GM in IV D5W 250 ML IV SCH ×2 (01:51→20:22)
[2017-03-09 04:00] VITALS: BP 109/79
[2017-03-09] MEDS: ALBUTEROL FS 2.5 MG/3 ML VIAL.NEB NEB SCH ×6 (04:01→23:02)
[2017-03-09] MEDS: IPRATROPIUM NEB FS 0.5 MG/2.5 ML AMPUL.NEB NEB SCH ×6 (04:01→23:02)
--- NOTE | 2017-03-09 07:43 | NUR ---
MS RN CLOSING NOTES NO SIGNIFICANT CHANGES OVERNIGHT. ALL NEEDS ANTICIPATED AND MET. ALL DUE MEDS GIVEN. NO RESPIRATORY DISTRESS NOTED. WOUND CARE DONE ORDERED. KEPT CLEAN AND DRY. TURNED AND REPOSITIONED Q2 AND PRN. SIDE RAILS UP AND LOCKED. BED KEPT AT LOWEST POSITION. CALL LIGHT KEPT WITHIN EASY REACH. CONTINUITY OF CARE ENDORSED TO AM NURSE.
[2017-03-09 08:00] VITALS: BP 131/70
[2017-03-09 08:15] LABS: CALCIUM, SERUM 7.9 mg/dL (8.5-10.1); CARBON DIOXIDE 33 mmol/L (21-32); CHLORIDE 100 mmol/L (98-107); CREATININE 0.4 mg/dL (0.6-1.3); GLUCOSE 116 mg/dL (74-106); SODIUM SERUM 136 mmol/L (136-145); UREA NITROGEN, BLOOD 17 mg/dL (7-18)
[2017-03-09] MEDS: MAGNESIUM OXIDE 400 MG TABLET PO SCH (09:38)
[2017-03-09] MEDS: POTASSIUM CHLORIDE 20 MEQ TAB.PRT.SR PO SCH (09:38)
[2017-03-09] MEDS: LACTOBACILLUS RHAMNOSUS GG 1 EACH CAP.SPRINK PO SCH ×2 (09:38→18:52)
[2017-03-09] MEDS: CITALOPRAM HYDROBROMIDE 20 MG TABLET PO SCH (09:38)
[2017-03-09] MEDS: CALCIUM CARBONATE 500 MG TAB.CHEW PO SCH (09:38)
[2017-03-09] MEDS: AMLODIPINE BESYLATE 5 MG TABLET PO SCH (09:38)
[2017-03-09] MEDS: MEROPENEM 500 MG in IV NS 0.9% 50 ML IV SCH ×2 (09:39→21:08)
[2017-03-09] MEDS: FUROSEMIDE 20 MG TABLET PO SCH (09:40)
[2017-03-09] MEDS: HYDROCODONE/APAP 5/325MG 1 EACH TABLET PO PRN ×3 (09:41→21:08)
[2017-03-09] MEDS: CLOTRIMAZOLE/BETAMETASONE DIPROPIONATE 15 GM TUBE TP SCH ×2 (09:43→18:56)
[2017-03-09] MEDS: NYSTATIN CREAM 15 GM TUBE TP SCH ×2 (09:44→18:56)
[2017-03-09] MEDS: Z GUARD REMEDY 2 OZ OINT TP SCH (09:45)
[2017-03-09] MEDS: GABAPENTIN 300 MG CAPSULE PO SCH ×4 (09:47→21:08)
[2017-03-09 16:00] VITALS: BP_SYST 101; BP_DIAS 57; BP_DIAS 88
[2017-03-09] MEDS ORDERED: WARFARIN SODIUM 5 MG TABLET PO SCH (17:00)
[2017-03-09 18:37] LABS: INR 1.23 (0.87-1.13); PROTHROMBIN TIME 13.3 SECS (9.5-12.7)
[2017-03-09] MEDS: FLUCONAZOLE (100 MG) 100 MG TABLET PO SCH (18:53)
--- NOTE | 2017-03-09 19:30 | NUR ---
MS RN INITIAL NOTES RECEIVED PATIENT A/OX1, ABLE TO MAKE NEEDS KNOWN. WITH C/O 5/10 BLE PAIN. DENIES SOB. RESPIRATIONS EVEN AND UNLABORED ON 2LPMO2 VIA NC. SKIN WARM AND DRY TO TOUCH. PER REPORT PATIENT S/P THORACENTESIS TODAY. WITH SUPRAPUBIC CATHETER IN PLACE, PATENT AND INTACT. DRAINING BY GRAVITY. HOB ELEVATED. SIDE RAILS UP AND LOCKED. BED KEPT AT LOWEST POSITION. CALL LIGHT KEPT WITHIN EASY REACH. WILL CONTINUE TO MONITOR.
[2017-03-09 20:00] VITALS: BP 112/59
[2017-03-09] MEDS: DOCUSATE SODIUM 100 MG CAPSULE PO SCH (21:08)
[2017-03-09] MEDS: ENOXAPARIN SODIUM 80 MG/0.8 ML DISP.SYRIN SQ SCH (21:09)
[2017-03-10] MEDS: IPRATROPIUM NEB FS 0.5 MG/2.5 ML AMPUL.NEB NEB SCH ×6 (03:10→23:27)
[2017-03-10] MEDS: ALBUTEROL FS 2.5 MG/3 ML VIAL.NEB NEB SCH ×6 (03:10→23:27)
[2017-03-10 04:00] VITALS: BP 106/68
--- NOTE | 2017-03-10 06:57 | NUR ---
MS RN CLOSING NOTES NO SIGNIFICANT CHANGES OVERNIGHT. ALL NEEDS ANTICIPATED AND MET. ALL DUE MEDS GIVEN. NO RESPIRATORY DISTRESS NOTED, ON 2LPMO2 VIA NC. WOUND CARE DONE ORDERED. KEPT CLEAN AND DRY. TURNED AND REPOSITIONED Q2 AND PRN. SIDE RAILS UP AND LOCKED. BED KEPT AT LOWEST POSITION. CALL LIGHT KEPT WITHIN EASY REACH. CONTINUITY OF CARE ENDORSED TO AM NURSE.
--- NOTE | 2017-03-10 07:09 | NUR ---
RN NOTES RECEIVED PATIENT ON BED, A/OX1, RESPIRATION EVEN AND UNLABORED, NO DISTESS NOTED, ON O2 2L N/C, SUPRAPUBIC CATHETER IN PLACE, DRAINING TO GRAVITY WELL,LFA AND LEFT HAND IV SITE CDI, HOB ELEVATED. SIDE RAILS UP x3, CALL LIGHT WITHIN EASY REACH, BED LOCKED AND IN LOWEST POSITION AND LOCKED. CALL LIGHT WITHIN EASY REACH, WILL CONTINUE TO MONITOR PT CLOSELY AND NOTIFY MD FOR ANY SIGNIFICANT CHANGES.
[2017-03-10 07:25] LABS: INR 1.32 (0.87-1.13); PROTHROMBIN TIME 14.4 SECS (9.5-12.7)
[2017-03-10 07:29] LABS: CARBON DIOXIDE 32 mmol/L (21-32); CHLORIDE 102 mmol/L (98-107); CREATININE 0.5 mg/dL (0.6-1.3); GLUCOSE 96 mg/dL (74-106); POTASSIUM 4.7 mmol/L (3.5-5.1); SODIUM SERUM 138 mmol/L (136-145); UREA NITROGEN, BLOOD 17 mg/dL (7-18)
[2017-03-10 08:00] VITALS: BP 100/64
[2017-03-10] MEDS: CALCIUM CARBONATE 500 MG TAB.CHEW PO SCH (08:53)
[2017-03-10] MEDS: MAGNESIUM OXIDE 400 MG TABLET PO SCH (08:53)
[2017-03-10] MEDS: HYDROCODONE/APAP 5/325MG 1 EACH TABLET PO PRN ×3 (08:53→20:54)
[2017-03-10] MEDS: POTASSIUM CHLORIDE 20 MEQ TAB.PRT.SR PO SCH (08:53)
[2017-03-10] MEDS: FLUCONAZOLE (100 MG) 100 MG TABLET PO SCH (08:53)
[2017-03-10] MEDS: LACTOBACILLUS RHAMNOSUS GG 1 EACH CAP.SPRINK PO SCH ×2 (08:54→17:32)
[2017-03-10] MEDS: AMLODIPINE BESYLATE 5 MG TABLET PO SCH (08:54)
[2017-03-10] MEDS: FUROSEMIDE 20 MG TABLET PO SCH (08:54)
[2017-03-10] MEDS: CITALOPRAM HYDROBROMIDE 20 MG TABLET PO SCH (08:54)
[2017-03-10] MEDS: MEROPENEM 500 MG in IV NS 0.9% 50 ML IV SCH ×2 (08:55→21:17)
[2017-03-10] MEDS: ENOXAPARIN SODIUM 80 MG/0.8 ML DISP.SYRIN SQ SCH ×2 (08:56→21:25)
[2017-03-10] MEDS: GABAPENTIN 300 MG CAPSULE PO SCH ×4 (08:58→21:17)
[2017-03-10] MEDS: CLOTRIMAZOLE/BETAMETASONE DIPROPIONATE 15 GM TUBE TP SCH ×2 (08:59→17:29)
[2017-03-10] MEDS: NYSTATIN CREAM 15 GM TUBE TP SCH ×2 (08:59→17:29)
[2017-03-10] MEDS: Z GUARD REMEDY 2 OZ OINT TP SCH (09:00)
[2017-03-10] MEDS: VANCOMYCIN 1 GM in IV D5W 250 ML IV SCH (13:02)
[2017-03-10 16:00] VITALS: BP 94/51
[2017-03-10] MEDS: WARFARIN SODIUM 5 MG TABLET PO SCH (17:35)
--- NOTE | 2017-03-10 18:58 | NUR ---
RN NOTES PT STABLE , RESPIRATION EVEN AND UNLABORED, KYRA ANY DISTRESS , DRESSING TO L HIP CDI, PT MEDICATED PER MD ORDER , NO SIGNIFICANT CHANGES NOTED ON THIS SHIFT.
[2017-03-10 20:00] VITALS: BP 105/62
[2017-03-10] MEDS: DOCUSATE SODIUM 100 MG CAPSULE PO SCH (21:17)
[2017-03-11] MEDS: IPRATROPIUM NEB FS 0.5 MG/2.5 ML AMPUL.NEB NEB SCH ×6 (03:30→23:30)
[2017-03-11] MEDS: ALBUTEROL FS 2.5 MG/3 ML VIAL.NEB NEB SCH ×6 (03:30→23:30)
[2017-03-11 04:00] VITALS: BP 96/55
[2017-03-11 06:43] LABS: CALCIUM, SERUM 8.3 mg/dL (8.5-10.1); CARBON DIOXIDE 34 mmol/L (21-32); CHLORIDE 100 mmol/L (98-107); CREATININE 0.4 mg/dL (0.6-1.3); GLUCOSE 86 mg/dL (74-106); MAGNESIUM 1.7 mg/dL (1.8-2.4); PHOSPHORUS 3.2 mg/dL (2.5-4.9); POTASSIUM 4.8 mmol/L (3.5-5.1); SODIUM SERUM 135 mmol/L (136-145); UREA NITROGEN, BLOOD 17 mg/dL (7-18)
--- NOTE | 2017-03-11 06:57 | NUR ---
RN CLOSING NOTE PT REMAINS IN NO ACUTE DISTRESS IN BED. PT DID NOT HAVE ANY SIGNIFICANT CHANGE IN CONDITION DURING SHIFT. ALL NEEDS MET ALL ORDERS CARRIED OUT. WILL ENDORSE TO AM RN FOR CONTINUITY OF CARE.
[2017-03-11 06:59] LABS: INR 2.08 (0.87-1.13); PROTHROMBIN TIME 23.3 SECS (9.5-12.7)
[2017-03-11] MEDS ORDERED: IV NS 0.9% 250 ML IV ONE ×2 (07:17→23:49)
[2017-03-11 07:25] LABS: HEMATOCRIT 29 % (33-45); HEMOGLOBIN 9.7 g/dL (11.5-14.8); LYMPHOCYTES % (AUTO) 14.6 % (20.0-44.0); MEAN CORPUSCULAR HEMOGLOBIN 35 PG (26.0-33.0); MEAN CORPUSCULAR HGB CONC 33 g/dl (31.0-36.0); MEAN CORPUSCULAR VOLUME 104 fL (82-100); MONOCYTES % (AUTO) 8.7 % (2.0-12.0); NEUTROPHILS % (AUTO) 68.8 % (43.0-81.0); PLATELET COUNT (AUTO) 212 /CMM (150-450); RDW COEFFICIENT OF VARIATION 20.4 (11.5-15.0); RED BLOOD CELL COUNT(AUTO) 2.81 MIL/uL (4.0-5.2); WHITE BLOOD COUNT (AUTO) 8.9 K/uL (4.3-11.0)
[2017-03-11 07:26] LABS: BASOPHILS # (AUTO) 0.1 /CMM (0.0-0.2); BASOPHILS % (AUTO) 0.6 % (0.0-2.0); EOSINOPHILS # (AUTO) 0.7 /CMM (0.0-0.7); EOSINOPHILS % (AUTO) 7.3 % (0.0-6.0); LYMPHOCYTES # (AUTO) 1.3 /CMM (0.8-4.8); MONOCYTES # (AUTO) 0.8 /CMM (0.1-1.30); NEUTROPHILS # (AUTO) 6.2 /CMM (1.8-8.9)
[2017-03-11] MEDS ORDERED: ALENDRONATE 70 MG TABLET PO SCH (07:30)
[2017-03-11 08:00] VITALS: BP 104/52
--- NOTE | 2017-03-11 08:00 | NUR ---
MS1/RN AM SHIFT INITIAL NOTES RECEIVED PT AWAKE SITTING IN BED, A/O X 1-2 NOTED WITH CONFUSION. DENIES PAIN. NO ACUTE CHANGE OF CONFUSION NOTED. ON 2L O2 VIA N/C SATURATING @ 98%, LUNG SOUNDS DIMINISHED. IV SITE PATENT WITH NO S/S OF INFECTION ON TKO. SUPRAPUBIC CATHETER NOTED WITH YELLOW URINE OUTPUT. PT'S LOWER EXTREMITIES NOTED WITH DISCOLORATION AND EDEMA, ELEVATED ON PILLOWS. PT IS COMFORTABLE AT THIS TIME. SCHEDULED AM MEDS TO BE GIVEN. CL WITHIN REACHED AND SAFETY MAINTAINED. ON GOING MONITORING. Addendum: 03/11/17 at 1052 by GILES DIAZ RN ERROR IN CHARTING: PT NOTED WITH NO ACUTE CHANGE OF CONDITION.
[2017-03-11] MEDS: CITALOPRAM HYDROBROMIDE 20 MG TABLET PO SCH (08:41)
[2017-03-11] MEDS: CALCIUM CARBONATE 500 MG TAB.CHEW PO SCH (08:41)
[2017-03-11] MEDS: HYDROCODONE/APAP 5/325MG 1 EACH TABLET PO PRN ×2 (08:41→20:04)
[2017-03-11] MEDS: LACTOBACILLUS RHAMNOSUS GG 1 EACH CAP.SPRINK PO SCH ×2 (08:41→16:45)
[2017-03-11] MEDS: FUROSEMIDE 20 MG TABLET PO SCH (08:42)
[2017-03-11] MEDS: FLUCONAZOLE (100 MG) 100 MG TABLET PO SCH (08:42)
[2017-03-11] MEDS: POTASSIUM CHLORIDE 20 MEQ TAB.PRT.SR PO SCH (08:42)
[2017-03-11] MEDS: GABAPENTIN 300 MG CAPSULE PO SCH ×4 (08:42→20:04)
[2017-03-11] MEDS: MAGNESIUM OXIDE 400 MG TABLET PO SCH (08:43)
[2017-03-11] MEDS: VANCOMYCIN 1 GM in IV D5W 250 ML IV SCH (08:45)
[2017-03-11] MEDS: ENOXAPARIN SODIUM 80 MG/0.8 ML DISP.SYRIN SQ SCH (08:45)
[2017-03-11] MEDS: NYSTATIN CREAM 15 GM TUBE TP SCH ×2 (08:46→16:49)
[2017-03-11] MEDS: CLOTRIMAZOLE/BETAMETASONE DIPROPIONATE 15 GM TUBE TP SCH ×2 (08:46→16:49)
[2017-03-11] MEDS: Z GUARD REMEDY 2 OZ OINT TP SCH (08:47)
[2017-03-11] MEDS: MEROPENEM 500 MG in IV NS 0.9% 50 ML IV SCH ×2 (10:01→20:04)
[2017-03-11] MEDS ORDERED: SECONDARY IV SET 1 EA INFUS.SET MC ONE (12:03)
[2017-03-11] MEDS: Magnesium 1GM/D5W 100ML PREMIX 100 ML IV SCH ×2 (12:14→14:26)
[2017-03-11 16:00] VITALS: BP 103/67
[2017-03-11] MEDS: WARFARIN SODIUM 5 MG TABLET PO SCH (16:47)
[2017-03-11] MEDS ORDERED: BOOST PLUS FOOD-CHOCLATE 237 ML BOX PO SCH (17:00)
--- NOTE | 2017-03-11 17:00 | NUR ---
MS1/RN AFTERNOON ROUNDS PM CARE PROVIDED. NO ACUTE CHANGE OF CONDITION NOTED. PT IS COMFORTABLE. MONITORING CONTINUED.
[2017-03-11] MEDS: BOOST PLUS FOOD-CHOCLATE 237 ML BOX PO SCH (18:00)
--- NOTE | 2017-03-11 19:11 | NUR ---
MS1/RN AM SHIFT END NOTES NO ACUTE CHANGE OF CONDITION NOTED DURING THE SHIFT. NEEDS MET. PT ENDORSED TO PM NURSE TO CONTINUE CARE. CL WITHIN REACHED AND SAFETY MAINTAINED.
[2017-03-11 20:00] VITALS: BP_SYST 106; BP_SYST 108; BP_DIAS 58; BP_DIAS 62
[2017-03-11] MEDS: DOCUSATE SODIUM 100 MG CAPSULE PO SCH (22:00)
[2017-03-12] MEDS: HYDROCODONE/APAP 5/325MG 1 EACH TABLET PO PRN ×4 (01:17→16:09)
[2017-03-12] MEDS: VANCOMYCIN 1 GM in IV D5W 250 ML IV SCH (02:00)
--- NOTE | 2017-03-12 02:00 | NUR ---
MED NOTE: 0200 VANCO HELD. LEVEL IS 31.
[2017-03-12] MEDS: ALBUTEROL FS 2.5 MG/3 ML VIAL.NEB NEB SCH ×6 (03:30→23:30)
[2017-03-12] MEDS: IPRATROPIUM NEB FS 0.5 MG/2.5 ML AMPUL.NEB NEB SCH ×6 (03:30→23:30)
[2017-03-12 04:00] VITALS: BP 96/63
[2017-03-12 07:10] LABS: BASOPHILS % (AUTO) 0.5 % (0.0-2.0); EOSINOPHILS # (AUTO) 0.8 /CMM (0.0-0.7); EOSINOPHILS % (AUTO) 9.1 % (0.0-6.0); HEMATOCRIT 30 % (33-45); LYMPHOCYTES # (AUTO) 1.3 /CMM (0.8-4.8); MEAN CORPUSCULAR HEMOGLOBIN 35 PG (26.0-33.0); MEAN CORPUSCULAR HGB CONC 34 g/dl (31.0-36.0); MEAN CORPUSCULAR VOLUME 103 fL (82-100); MONOCYTES # (AUTO) 0.9 /CMM (0.1-1.30); MONOCYTES % (AUTO) 10.4 % (2.0-12.0); NEUTROPHILS # (AUTO) 5.6 /CMM (1.8-8.9); PLATELET COUNT (AUTO) 229 /CMM (150-450); RED BLOOD CELL COUNT(AUTO) 2.89 MIL/uL (4.0-5.2); WHITE BLOOD COUNT (AUTO) 8.6 K/uL (4.3-11.0)
[2017-03-12 07:23] LABS: INR 3.94 (0.87-1.13)
[2017-03-12 07:29] LABS: CALCIUM, SERUM 8.3 mg/dL (8.5-10.1); CARBON DIOXIDE 34 mmol/L (21-32); CHLORIDE 102 mmol/L (98-107); CREATININE 0.4 mg/dL (0.6-1.3); GLUCOSE 95 mg/dL (74-106); MAGNESIUM 2.1 mg/dL (1.8-2.4); PHOSPHORUS 3.2 mg/dL (2.5-4.9); POTASSIUM 4.8 mmol/L (3.5-5.1); SODIUM SERUM 137 mmol/L (136-145); UREA NITROGEN, BLOOD 15 mg/dL (7-18)
[2017-03-12 08:00] VITALS: BP_SYST 111; BP_SYST 115; BP_DIAS 60; BP_DIAS 62
--- NOTE | 2017-03-12 08:41 | NUR ---
MS RN INITIAL NOTE RECEIVED PT SLEEPING EASILY AROUSABLE IN BED, A/O X 1-2 NOTED WITH CONFUSION. DENIES PAIN. NO ACUTE CHANGE OF CONFUSION NOTED. ON 3L O2 VIA N/C SATURATING @ 98%, LUNG SOUNDS DIMINISHED. IV SITE PATENT WITH NO S/S OF INFECTION ON TKO. SUPRAPUBIC CATHETER NOTED WITH YELLOW URINE OUTPUT. PT'S LOWER EXTREMITIES NOTED WITH DISCOLORATION AND EDEMA, ELEVATED ON PILLOWS. PT IS COMFORTABLE AT THIS TIME. SCHEDULED AM MEDS TO BE GIVEN. CALL LIGHT WITHIN REACHED AND SAFETY MAINTAINED. ON GOING MONITORING.
[2017-03-12] MEDS: GABAPENTIN 300 MG CAPSULE PO SCH ×4 (09:00→21:17)
[2017-03-12] MEDS: POTASSIUM CHLORIDE 20 MEQ TAB.PRT.SR PO SCH (09:21)
[2017-03-12] MEDS: BOOST PLUS FOOD-CHOCLATE 237 ML BOX PO SCH ×3 (09:21→19:01)
[2017-03-12] MEDS: FLUCONAZOLE (100 MG) 100 MG TABLET PO SCH (09:21)
[2017-03-12] MEDS: CITALOPRAM HYDROBROMIDE 20 MG TABLET PO SCH (09:21)
[2017-03-12] MEDS: LACTOBACILLUS RHAMNOSUS GG 1 EACH CAP.SPRINK PO SCH ×2 (09:21→16:04)
[2017-03-12] MEDS: CALCIUM CARBONATE 500 MG TAB.CHEW PO SCH (09:21)
[2017-03-12] MEDS: FUROSEMIDE 20 MG TABLET PO SCH (09:22)
[2017-03-12] MEDS: MAGNESIUM OXIDE 400 MG TABLET PO SCH (09:22)
[2017-03-12] MEDS: CLOTRIMAZOLE/BETAMETASONE DIPROPIONATE 15 GM TUBE TP SCH ×2 (09:24→17:48)
[2017-03-12] MEDS: NYSTATIN CREAM 15 GM TUBE TP SCH ×2 (09:25→17:48)
[2017-03-12] MEDS: MEROPENEM 500 MG in IV NS 0.9% 50 ML IV SCH ×2 (09:26→21:17)
[2017-03-12] MEDS: Z GUARD REMEDY 2 OZ OINT TP SCH (09:27)
[2017-03-12 10:26] LABS: BAND % (MANUAL) 3 % (0.0-5.0); EOSINOPHILS % (MANUAL) 6 % (0-4); LYMPHOCYTES % (MANUAL) 13 % (16-48); MONOCYTES % (MANUAL) 2 % (0-11.0); NEUTROPHILS % (MANUAL) 76 (42-76)
--- NOTE | 2017-03-12 10:54 | NUR ---
COLD ROLLING SUPERVISOR NOTE PT GABAPENTIN NOT ADMINISTERED DUE TO PATIENT REFUSING ADDITION FOOD ( PUREE DIET AND CRUSHED MEDICATION) PT IS ALSO SEDATED / LETHARGIC AND CONFUSED. MEDICAL STAFF WILL CONTINUE TO FOLLOW THE PATIENTS PROGRESS THE IMPORTANCE OF MEDICATION EXPLAINED UNDERSTANDING NOT ACHIEVED .
[2017-03-12 12:00] VITALS: BP 115/60
[2017-03-12 16:00] VITALS: BP 101/65
--- NOTE | 2017-03-12 16:21 | NUR ---
MS RN NOTE PATIENT HAVING HALLUCINATIONS ABOUT " LITTLE GIRL" INSIDE HER ROOM. NURSING STAFF WILL CONTINUE TO FOLLOW THE PATIENTS PROGRESS.
[2017-03-12] MEDS ORDERED: WARFARIN SODIUM 5 MG TABLET PO SCH (17:00)
[2017-03-12] MEDS ORDERED: FEE PK DOSING 1 MIN EA MC ONE (17:14)
[2017-03-12] MEDS ORDERED: DOSING PER PHARMACY-AMIKACI IV XX PRN (17:30)
--- NOTE | 2017-03-12 18:27 | NUR ---
RN CLOSING NOTE PATIENT REFUSED DRESSING CHANGE, BED BATH, PATIENT HOWEVER REPOSITIONED Q 2HRS, NEEDS MET , NO NEW ISSUES ARISE THROUGHOUT SHIFT PT VITAL SIGNS WNL , ALL NEEDED ATTENDED AM RN WILL REPORT TO PM RN.
[2017-03-12] MEDS ORDERED: SECONDARY IV SET 1 EA INFUS.SET MC ONE (18:56)
[2017-03-12] MEDS: AMIKACIN 500 MG in IV D5W 100 ML IV SCH (19:01)
[2017-03-12 20:00] VITALS: BP 136/58
[2017-03-12] MEDS ORDERED: VANCOMYCIN 1 GM in IV D5W 250 ML IV SCH (20:00)
[2017-03-12 20:24] VITALS: BP 112/56
[2017-03-12] MEDS: DOCUSATE SODIUM 100 MG CAPSULE PO SCH (21:17)
[2017-03-13] MEDS: IPRATROPIUM NEB FS 0.5 MG/2.5 ML AMPUL.NEB NEB SCH ×6 (03:52→23:22)
[2017-03-13] MEDS: ALBUTEROL FS 2.5 MG/3 ML VIAL.NEB NEB SCH ×6 (03:52→23:22)
[2017-03-13 04:00] VITALS: BP 119/60
[2017-03-13] MEDS ORDERED: IV NS 0.9% 250 ML IV ONE (06:04)
[2017-03-13 07:37] LABS: CARBON DIOXIDE 31 mmol/L (21-32); CHLORIDE 103 mmol/L (98-107); CREATININE 0.4 mg/dL (0.6-1.3); GLUCOSE 106 mg/dL (74-106); POTASSIUM 5.4 mmol/L (3.5-5.1); SODIUM SERUM 140 mmol/L (136-145); UREA NITROGEN, BLOOD 16 mg/dL (7-18)
[2017-03-13 07:42] LABS: PROTHROMBIN TIME 82.7 SECS (9.5-12.7)
[2017-03-13 07:50] LABS: INR 6.84 (0.87-1.13)
[2017-03-13 08:00] VITALS: BP 104/48
[2017-03-13] MEDS: LACTOBACILLUS RHAMNOSUS GG 1 EACH CAP.SPRINK PO SCH ×2 (08:20→17:18)
[2017-03-13] MEDS: CALCIUM CARBONATE 500 MG TAB.CHEW PO SCH (08:20)
[2017-03-13] MEDS: CITALOPRAM HYDROBROMIDE 20 MG TABLET PO SCH (08:20)
[2017-03-13] MEDS: POTASSIUM CHLORIDE 20 MEQ TAB.PRT.SR PO SCH ×2 (08:21→08:29)
[2017-03-13] MEDS: FLUCONAZOLE (100 MG) 100 MG TABLET PO SCH (08:21)
[2017-03-13] MEDS: HYDROCODONE/APAP 5/325MG 1 EACH TABLET PO PRN ×2 (08:21→17:18)
[2017-03-13] MEDS: FUROSEMIDE 20 MG TABLET PO SCH (08:21)
[2017-03-13] MEDS: MAGNESIUM OXIDE 400 MG TABLET PO SCH (08:21)
[2017-03-13] MEDS ORDERED: SECONDARY IV SET 1 EA INFUS.SET MC ONE ×3 (08:22→21:10)
[2017-03-13] MEDS: BOOST PLUS FOOD-CHOCLATE 237 ML BOX PO SCH ×3 (08:23→17:18)
[2017-03-13] MEDS: NYSTATIN CREAM 15 GM TUBE TP SCH ×2 (08:23→17:19)
[2017-03-13] MEDS: MEROPENEM 500 MG in IV NS 0.9% 50 ML IV SCH ×2 (08:23→21:26)
[2017-03-13] MEDS: CLOTRIMAZOLE/BETAMETASONE DIPROPIONATE 15 GM TUBE TP SCH ×2 (08:24→17:19)
[2017-03-13] MEDS: Z GUARD REMEDY 2 OZ OINT TP SCH (08:24)
[2017-03-13] MEDS: GABAPENTIN 300 MG CAPSULE PO SCH ×4 (08:27→21:27)
--- NOTE | 2017-03-13 09:18 | NUR ---
DR. JACQUES TAKING CARE OF PATIENT TODAY AWARE OF COAGULATION STUDY RESULTS AND POTASSIUM LEVEL.
[2017-03-13 16:00] VITALS: BP 140/53
[2017-03-13] MEDS: AMIKACIN 500 MG in IV D5W 100 ML IV SCH (17:18)
--- NOTE | 2017-03-13 19:22 | NUR ---
END OF SHIFT LEFT PATIENT IN STABLE CONDITION. NO ASPIRATION THIS SHIFT. REPOSITIONED Q2HR PER PROTOCOL AND PROVIDED EXTENSIVE SKIN CARE.
--- NOTE | 2017-03-13 19:35 | NUR ---
MS RN INITIAL NOTE. PT RECEIVED RESTING IN BED. A/O X1 WITH CONFUSION BUT ABLE TO MAKE SOME NEEDS KNOWN. IV RFA CLEAN, DRY, PATENT AND FLUSHING WELL. SUPRAPUBIC CATHETER IN PLACE, PATENT AND DRAINING BY GRAVITY. CALL LIGHT WITHIN EASY REACH AT ALL TIMES. WILL CONTINUE TO MONITOR.
[2017-03-13 20:00] VITALS: BP 101/62
[2017-03-13] MEDS: VORICONAZOLE 200 MG TABLET PO SCH (21:27)
[2017-03-13] MEDS: DOCUSATE SODIUM 100 MG CAPSULE PO SCH (21:27)
[2017-03-14] MEDS: ALBUTEROL FS 2.5 MG/3 ML VIAL.NEB NEB SCH ×4 (03:30→15:06)
[2017-03-14] MEDS: IPRATROPIUM NEB FS 0.5 MG/2.5 ML AMPUL.NEB NEB SCH ×4 (03:30→15:06)
[2017-03-14 04:00] VITALS: BP 111/71
--- NOTE | 2017-03-14 06:55 | NUR ---
MS RN CLOSING NOTE PT REMAINED STABLE DURING SHIFT. ON 2L OF O2 VIA NC AND SATING WELL. CALL LIGHT WITHIN EASY REACH. SUPRACATHETER IN PLACE. IV INTACT AND PATENT. WILL ENDORSE TO NEXT SHIFT FOR JAY.
[2017-03-14 07:15] LABS: BASOPHILS # (AUTO) 0.1 /CMM (0.0-0.2); BASOPHILS % (AUTO) 1.1 % (0.0-2.0); EOSINOPHILS % (AUTO) 10.5 % (0.0-6.0); HEMATOCRIT 28 % (33-45); HEMOGLOBIN 9.4 g/dL (11.5-14.8); LYMPHOCYTES # (AUTO) 1.8 /CMM (0.8-4.8); LYMPHOCYTES % (AUTO) 18.5 % (20.0-44.0); MEAN CORPUSCULAR HEMOGLOBIN 34 PG (26.0-33.0); MEAN CORPUSCULAR HGB CONC 33 g/dl (31.0-36.0); MEAN CORPUSCULAR VOLUME 102 fL (82-100); MONOCYTES # (AUTO) 0.9 /CMM (0.1-1.30); MONOCYTES % (AUTO) 9.1 % (2.0-12.0); NEUTROPHILS # (AUTO) 5.8 /CMM (1.8-8.9); NEUTROPHILS % (AUTO) 60.8 % (43.0-81.0); PLATELET COUNT (AUTO) 228 /CMM (150-450); RDW COEFFICIENT OF VARIATION 19.4 (11.5-15.0); RED BLOOD CELL COUNT(AUTO) 2.76 MIL/uL (4.0-5.2); WHITE BLOOD COUNT (AUTO) 9.5 K/uL (4.3-11.0)
--- NOTE | 2017-03-14 07:18 | NUR ---
RN INITIAL NOTES: Rec'd pt asleep on bed, A/O x1-2, not in any distress. Pt on O2 at 3lpm/NC, no SOB noted. Has RFA G20, SL, flushed, patent & intact w/ no signs of infection/ infiltration noted. Has patent & intact suprapubic catheter draining to adequate yellow urine output. Provided comfort & safety measures. Bed kept low & in locked position. Needs attended. Will continue to monitor.
[2017-03-14 07:39] LABS: ALANINE AMINOTRANSFERASE 35 U/L (12-78); ALBUMIN 1.8 g/dL (3.4-5.0); ALKALINE PHOSPHATASE 156 U/L (46-116); ASPARTATE AMINOTRANSFERASE 41 U/L (15-37); BILIRUBIN,TOTAL 0.5 mg/dL (0.2-1.0); CALCIUM, SERUM 7.9 mg/dL (8.5-10.1); CARBON DIOXIDE 31 mmol/L (21-32); CHLORIDE 103 mmol/L (98-107); CREATININE 0.5 mg/dL (0.6-1.3); GLUCOSE 95 mg/dL (74-106); MAGNESIUM 1.9 mg/dL (1.8-2.4); PHOSPHORUS 2.8 mg/dL (2.5-4.9); POTASSIUM 4.5 mmol/L (3.5-5.1); SODIUM SERUM 140 mmol/L (136-145); TOTAL PROTEIN, SERUM 5.5 g/dL (6.4-8.2); UREA NITROGEN, BLOOD 18 mg/dL (7-18)
[2017-03-14 07:42] LABS: INR 4.58 (0.87-1.13)
[2017-03-14 08:00] VITALS: BP 108/60
[2017-03-14] MEDS: MEROPENEM 500 MG in IV NS 0.9% 50 ML IV SCH (08:54)
[2017-03-14] MEDS: CALCIUM CARBONATE 500 MG TAB.CHEW PO SCH (08:54)
[2017-03-14] MEDS: BOOST PLUS FOOD-CHOCLATE 237 ML BOX PO SCH ×2 (08:54→13:04)
[2017-03-14] MEDS: MAGNESIUM OXIDE 400 MG TABLET PO SCH (08:55)
[2017-03-14] MEDS: NYSTATIN CREAM 15 GM TUBE TP SCH ×2 (08:55→17:20)
[2017-03-14] MEDS: CITALOPRAM HYDROBROMIDE 20 MG TABLET PO SCH (08:55)
[2017-03-14] MEDS: LACTOBACILLUS RHAMNOSUS GG 1 EACH CAP.SPRINK PO SCH ×2 (08:55→17:19)
[2017-03-14] MEDS: FUROSEMIDE 20 MG TABLET PO SCH (08:55)
[2017-03-14] MEDS: POTASSIUM CHLORIDE 20 MEQ TAB.PRT.SR PO SCH (08:55)
[2017-03-14] MEDS: VORICONAZOLE 200 MG TABLET PO SCH (08:55)
[2017-03-14] MEDS: Z GUARD REMEDY 2 OZ OINT TP SCH (08:56)
[2017-03-14] MEDS: CLOTRIMAZOLE/BETAMETASONE DIPROPIONATE 15 GM TUBE TP SCH ×2 (08:56→17:20)
[2017-03-14] MEDS: GABAPENTIN 300 MG CAPSULE PO SCH ×3 (09:01→17:20)
[2017-03-14] MEDS: HYDROCODONE/APAP 5/325MG 1 EACH TABLET PO PRN ×2 (10:17→15:35)
[2017-03-14] MEDS ORDERED: MIDAZOLAM HCL 5MG/ML VIAL 25 MG/5 ML VIAL IV ONE (14:30)
[2017-03-14] MEDS ORDERED: FENTANYL PF 250MCG/5ML AMPUL IV ONE (14:30)
[2017-03-14] MEDS ORDERED: NALOXONE PREFILLED SYRINGE 2 MG/2 ML SYRINGE IV ONE (14:30)
[2017-03-14 16:00] VITALS: BP 106/63
--- NOTE | 2017-03-14 17:30 | NUR ---
BENZENE STILL UTILITY OPERATOR NOTES: Pt DC'd to [facility], report given to LIZZETH Thomas. IV access left as requested by LIZZETH Thomas. No acute changes noted w/in shift. Pain meds was given as needed. Suprapubic catheter kept patent & intact draining to adequate urine output. Wound care & photos taken prior to DC. Pt left facility via gurney in stable condition w/ O2 at 2lpm/NC, no SOB, accompanied by Med[employer] indigo vat tender cloth. Medlist faxed to the SNF as requested.
== END 2017-03-14 17:55 | DRG 189 ==
LOC: ER 18:46 → TELE-TD 21:15 → MEDSG1 03-07 15:03
PROVIDERS: ADMIT Internal Medicine Nephrology; ATTEND Internal Medicine Nephrology
PROC: 0W993ZZ Drainage of Right Pleural Cavity, Percutaneous Approach (ICD-10-PCS; principal; 2017-03-09)
DX: J96.21 Acute and chronic respiratory failure with hypoxia (principal); J69.0 Pneumonitis due to inhalation of food and vomit; I50.32 Chronic diastolic (congestive) heart failure; J44.1 Chronic obstructive pulmonary disease with (acute) exacerbation; E66.2 Morbid (severe) obesity with alveolar hypoventilation; J44.0 Chronic obstructive pulmonary disease with (acute) lower respiratory infection; G82.20 Paraplegia, unspecified; N39.0 Urinary tract infection, site not specified; L03.116 Cellulitis of left lower limb; L03.115 Cellulitis of right lower limb; J90 Pleural effusion, not elsewhere classified; D68.9 Coagulation defect, unspecified; L89.319 Pressure ulcer of right buttock, unspecified stage; I11.0 Hypertensive heart disease with heart failure; G47.33 Obstructive sleep apnea (adult) (pediatric); I48.91 Unspecified atrial fibrillation; E78.5 Hyperlipidemia, unspecified; Z66 Do not resuscitate; Z86.718 Personal history of other venous thrombosis and embolism; Z79.01 Long term (current) use of anticoagulants; Z88.0 Allergy status to penicillin; I25.10 Atherosclerotic heart disease of native coronary artery without angina pectoris; Z86.12 Personal history of poliomyelitis; Z99.3 Dependence on wheelchair; G14 Postpolio syndrome; M81.0 Age-related osteoporosis without current pathological fracture; K59.00 Constipation, unspecified; F17.210 Nicotine dependence, cigarettes, uncomplicated; I87.8 Other specified disorders of veins; D72.829 Elevated white blood cell count, unspecified; G62.9 Polyneuropathy, unspecified; Z96.642 Presence of left artificial hip joint
CPT/HCPCS: 31720; 36415; 71010-TC; 76942-TC; 80048-TC; 80053-TC; 80076-TC; 80202-TC; 81000-TC; 83605-TC; 83735-TC; 84100-TC; 84155-TC; 84484-TC; 85025-TC; 85610-TC; 85730-TC; 87040-TC; 87070-TC; 87075-TC; 87081-TC; 87086-TC; 87186-TC; 89051-TC; 92526; 92611-TC; 94799-TC; A4216; A4606; A6253; A6402; A6403; A6407; J0278; J1650; J1956; J2185; J2543; J3370; J3475; J7050; J7060; Z7610

== ENCOUNTER 2017-10-23 02:32 | Inpatient (IN) | payer MEDICARE ==
[~2017-10-23] VITALS: Ht 165.1 cm; Wt 61.2 kg
[~2017-10-23 02:32] MED LIST changes: -AMLO5TAB2 PO; +ASCO500T9 PO; +CALC-1026 PO; -CALC500T71 PO; -CITA20TA19 PO; +CRAN3875 PO; +CRAN425C6 PO; +DILT30TA2 PO; +DOCU-141 PO; -DOCU-25 PO; +DULO30CA2 PO; -ENOX100D SQ; +FERR-58 PO; +HYDR-552 PO; +LACT10SO PO; -MERO500P IV; +MULT-213 PO; -VANC750P5 IV; -WARF5TAB77 PO; +ZINC220T PO
--- NOTE | 2017-10-23 02:32 | NUR ---
TO BED 4 [facility] C/O PNEUMONIA CONFIRMED BY CXR AT SNF. RHONCHI HEARD BILATERALLY ON AUSCULTATION. PT AAOX3 NO ACUTE DISTRESS NOTED, RESP EVEN AND UNLABORED. PLACE PT ON CARDIAC MONITORING, CONTINUOUS POX. ER MD AT BEDSIDE TO EVAL PT WITH ORDERS RECEIVED. WILL CARRY OUT ORDERS.
[2017-10-23] MEDS ORDERED: ACETAMINOPHEN ES 500 MG TABLET ONE (02:56)
[2017-10-23] MEDS ORDERED: ACETAMINOPHEN 325 MG TABLET PO ONE (03:00)
--- NOTE | 2017-10-23 03:00 | NUR ---
CONFIRMED WITH MACHINIST SUPERVISOR OUTSIDE PT'S PHYSICIAN IS CURRENTLY SUSPENDED. WILL GO TO PANEL.
[2017-10-23 03:03] LABS: APPEARANCE,URINE CLOUDY (CLEAR); BILIRUBIN,URINE NEGATIVE (NEGATIVE); BLOOD, URINE 1+ Ery/uL (NEGATIVE); COLOR,URINE YELLOW (YELLOW); KETONES,URINE NEGATIVE (NEGATIVE); LEUKOCYTE ESTERASE ,URINE 3+ (NEGATIVE); NITRITE, URINE POSITIVE (NEGATIVE); PROTEIN,URINE TRACE mg/dl (NEGATIVE); UGLUCOSE NEGATIVE (NEGATIVE); UROBILINOGEN,URINE 0.2 EU/dL (0.2)
[2017-10-23 03:06] LABS: BASOPHILS % (AUTO) 0.3 % (0.0-2.0); EOSINOPHILS # (AUTO) 0.1 /CMM (0.0-0.7); EOSINOPHILS % (AUTO) 0.4 % (0.0-6.0); HEMATOCRIT 38 % (33-45); LYMPHOCYTES # (AUTO) 0.6 /CMM (0.8-4.8); LYMPHOCYTES % (AUTO) 4.6 % (20.0-44.0); MEAN CORPUSCULAR HEMOGLOBIN 35 PG (26.0-33.0); MEAN CORPUSCULAR HGB CONC 34 g/dl (31.0-36.0); MEAN CORPUSCULAR VOLUME 101 fL (82-100); MONOCYTES # (AUTO) 0.4 /CMM (0.1-1.30); MONOCYTES % (AUTO) 3.5 % (2.0-12.0); NEUTROPHILS # (AUTO) 11.4 /CMM (1.8-8.9); NEUTROPHILS % (AUTO) 91.2 % (43.0-81.0); PLATELET COUNT (AUTO) 168 /CMM (150-450); RDW COEFFICIENT OF VARIATION 15.4 (11.5-15.0); RED BLOOD CELL COUNT(AUTO) 3.77 MIL/uL (4.0-5.2); WHITE BLOOD COUNT (AUTO) 12.6 K/uL (4.3-11.0)
[2017-10-23 03:07] LABS: BACTERIA,URINE Many /HPF (None Seen); WBC,URINE TOO NUMEROUS TO COUN /HPF (0-3)
[2017-10-23 03:08] LABS: SQUAMOUS EPITHELIAL CELL,UR Rare /HPF (None Seen)
[2017-10-23 03:16] LABS: CALCIUM, SERUM 8.5 mg/dL (8.5-10.1); CARBON DIOXIDE 30 mmol/L (21-32); CHLORIDE 98 mmol/L (98-107); CREATININE 0.5 mg/dL (0.6-1.3); GLUCOSE 142 mg/dL (74-106); POTASSIUM 4.3 mmol/L (3.5-5.1); SODIUM SERUM 136 mmol/L (136-145); UREA NITROGEN, BLOOD 23 mg/dL (7-18)
[2017-10-23 03:20] LABS: INR 1.1 (0.87-1.13)
[2017-10-23 03:24] LABS: TROPONIN I < 0.017 ng/mL (0.00-0.056)
[2017-10-23 03:29] LABS: ALANINE AMINOTRANSFERASE 45 U/L (12-78); ALBUMIN 2.9 g/dL (3.4-5.0); ALKALINE PHOSPHATASE 90 U/L (46-116); ASPARTATE AMINOTRANSFERASE 21 U/L (15-37); B-TYPE NATRIURETIC PEPTIDE 2055 PG/ML (0-125); BILIRUBIN,DIRECT 0.2 mg/dL (0.0-0.2); BILIRUBIN,TOTAL 0.8 mg/dL (0.2-1.0); TOTAL PROTEIN, SERUM 6.4 g/dL (6.4-8.2)
[2017-10-23] MEDS ORDERED: AZTREONAM 1 G in IV NS 0.9% 100 ML IV ONE (03:30)
[2017-10-23] MEDS ORDERED: LEVOFLOXACIN 750 MG /D5W 150ML PIGGYBACK IV ONE (03:30)
--- NOTE | 2017-10-23 03:43 | NUR ---
TELE BED 307-1
[2017-10-23] MEDS ORDERED: AZTREONAM 1 G VIAL ONE (03:44)
[2017-10-23] MEDS ORDERED: LEVOFLOXACIN 750 MG /D5W 150ML 150 ML IV ONE (03:44)
--- NOTE | 2017-10-23 04:20 | NUR ---
REPORT CALLED TO DIE STAMPING PRESS OPERATOR RHEA. WILL TRANSPORT PT VIA ACLS PROTOCOL.
--- NOTE | 2017-10-23 04:26 | NUR ---
DR. MCKEON PAGED PER ER ORDER.
--- NOTE | 2017-10-23 04:49 | NUR ---
DR. MCKEON PAGED PER ER ORDER.
--- NOTE | 2017-10-23 05:13 | NUR ---
DR. MCKEON PAGED PER ER ORDER.
--- NOTE | 2017-10-23 05:17 | NUR ---
ACOSTA HAINES TALKING TO DR. MCKEON REGARDING PT ADMISSION.
--- NOTE | 2017-10-23 05:18 | NUR ---
WILL TRANSPORT PT VIA ACLS PROTOCOL.
[2017-10-23 05:30] VITALS: BP 88/47
--- NOTE | 2017-10-23 05:30 | NUR ---
RN OPENING NOTES: RECEIVED PT AND IS A/OX3. PT ON 2LPM VIA NC AND IS TOLERATING WELL. HOB ELEVATED. PT HAS IV ON R AC #18G AND IS BEING INFUSED WITH LEVAQUIN AT 100ML/HR. NO S/S OF DISTRESS NOTED AT THIS TIME. PT HAS SUPRAPUBIC CATH WITH YELLOW URINE DRAINING IN BAG. CALL LIGHT WITHIN PT'S REACH. BED KEPT IN LOW, LOCKED POSITION, AND SIDE RAILS X 2UP. WILL CONTINUE TO MONITOR PT.
--- NOTE | 2017-10-23 05:38 | NUR ---
RN NOTES: SPOKE WITH DR. MCKEON AND SAID TO CONTINUE MEDS FROM [facility]. ALSO, HE WILL CALL BACK WITHIN AN HOUR FOR THE REST OF ORDERS.
--- NOTE | 2017-10-23 06:36 | NUR ---
RN NOTES: CALLED AGAIN FOR DR. MCKEON TO NOTIFY HIM ABOUT BP ; DOCTOR WAS PAGED. AWAITING FOR CALL BACK.
[2017-10-23] MEDS ORDERED: LACT1CAP7 PO (06:51)
[2017-10-23] MEDS ORDERED: ACET1OOV6 HHN (06:51)
[2017-10-23] MEDS ORDERED: PRED20TA PO (06:51)
[2017-10-23] MEDS ORDERED: CITA20TA19 PO (06:51)
[2017-10-23] MEDS ORDERED: TRAM50TA2 PO (06:51)
[2017-10-23] MEDS ORDERED: PANT40TA4 PO (06:51)
--- NOTE | 2017-10-23 06:52 | NUR ---
RN NOTES: STILL NO CALL BACK FROM DR. MCKEON.
[2017-10-23] MEDS ORDERED: APIX2.5T PO (06:55)
--- NOTE | 2017-10-23 07:30 | NUR ---
RN CLOSING NOTES: STILL AWAITING FOR DR. MCKEON TO CALL BACK AND NO CALLS RECEIVED. PT ON TELE BOX AND READING SHOWS SR 76 WITH OCCASIONAL PACS. PT ON 2LPM VIA NC AND IS TOLERATING WELL. HOB ELEVATED. PT HAS IV ON R AC #18G AND IS PATENT AND INTACT. NO S/S OF DISTRESS NOTED AT THIS TIME. PT HAS SUPRAPUBIC CATH WITH YELLOW URINE DRAINING IN BAG. CALL LIGHT WITHIN PT'S REACH. BED KEPT IN LOW, LOCKED POSITION, AND SIDE RAILS X 2UP. MED RECON PLACED IN PHARMACY BOX. COPY PLACED IN CHART. ENDORSED TO AM NURSE FOR JAY.
--- NOTE | 2017-10-23 07:30 | NUR ---
MS RN NOTES PATIENT RECEIVED AWAKE, ALERT AND ORIENTED X3, VERBALLY RESPONSIVE AND RESPONDS TO VERBAL AND TACTILE STIMULI. PATIENT BREATHNG EVEN AND UNLABORED. NO SOB OR CONGESTION NOTED. DENIES ANY PAIN OR DISCOMFORT. IV SITE IN PLACE ON RIGHT AC, INTACT AND PATENT. NO BLEEDING OR SWELLING NOTED. WILL CONTINUE TO MONITOR. BED LOCKED AND IN LOW POSITION. BILATERAL UPPER SIDE RAILS UP. CALL LIGHT WITHIN EASY REACH
[2017-10-23 08:00] VITALS: BP 117/63
[2017-10-23] MEDS ORDERED: ALENDRONATE 70 MG TABLET PO SCH (09:56)
[2017-10-23 10:00] VITALS: BP 117/63
[2017-10-23] MEDS ORDERED: ACETAMINOPHEN 325 MG TABLET PO PRN (10:00)
[2017-10-23] MEDS ORDERED: MAGNESIUM HYDROXIDE 30 ML UDC PO PRN (10:00)
[2017-10-23] MEDS ORDERED: BISACODYL SUPP (10 MG) 10 MG/SUPP.RECT SUPP.RECT RC PRN (10:00)
[2017-10-23] MEDS ORDERED: NA PHOS,M-B/NA PHOS,DI-BA 1 EA ENEMA RC PRN (10:00)
[2017-10-23] MEDS ORDERED: LACTULOSE 10 G/15 ML UDC (PYXIS) PO PRN (10:30)
[2017-10-23] MEDS: ZINC SULFATE 220 MG CAPSULE PO SCH (11:10)
[2017-10-23] MEDS: DILTIAZEM HCL 30 MG TABLET PO SCH ×3 (12:00→23:50)
[2017-10-23] MEDS: ASCORBIC ACID 500 MG TABLET PO SCH ×2 (12:22→17:12)
[2017-10-23] MEDS: GABAPENTIN 300 MG CAPSULE PO SCH ×3 (12:22→21:33)
[2017-10-23] MEDS: HYDROCODONE/APAP 5/325MG 1 EACH TABLET PO PRN ×2 (12:23→18:20)
[2017-10-23] MEDS: IPRATROPIUM NEB FS 0.5 MG/2.5 ML AMPUL.NEB NEB SCH ×2 (13:43→20:33)
[2017-10-23] MEDS: ALBUTEROL FS 2.5 MG/3 ML VIAL.NEB NEB SCH ×2 (13:43→20:33)
[2017-10-23] MEDS: ACETYLCYSTEINE 10% SOLN 400 MG/4 ML VIAL HHN SCH ×2 (13:43→20:33)
[2017-10-23] MEDS ORDERED: VANCOMYCIN 1 GM in IV D5W 250 ML IV ONE (15:00)
[2017-10-23] MEDS ORDERED: AZTREONAM 1 G VIAL IM SCH (15:00)
[2017-10-23 16:00] VITALS: BP_SYST 111; BP_SYST 95; BP_DIAS 61; BP_DIAS 62
[2017-10-23 16:12] LABS: ABG BASE EXCESS 4.1 mmol/L; ABG PCO2 47.7 mmHg (35.0-45.0); ABG PH 7.411 (7.350-7.450); ABG PO2 63.4 mmHg (75.0-100.0); COHb 2.3 % (0.5-1.5); MetHb 0.3 % (0.0-1.5); O2Hb 90.1 % (94.0-97.0); SITE, ABG Left Radial; VENT MODE, BG N/C
[2017-10-23] MEDS: TRAMADOL HCL 50 MG TABLET PO SCH (17:12)
[2017-10-23] MEDS: PROSOURCE / PROSTAT (PYXIS) 30 ML UDC PO SCH (17:12)
[2017-10-23] MEDS: LACTOBACILLUS RHAMNOSUS GG 1 EACH CAP.SPRINK PO SCH (17:12)
[2017-10-23] MEDS: FERROUS SULFATE (325 MG) 325 MG/TAB TABLET PO SCH (17:13)
--- NOTE | 2017-10-23 18:30 | NUR ---
MS RN NOTES PATIENT TRANSFERRED ROOMS, MOVED FROM 307-1 TO 206-1. PATIENT ASSISTED DURING TRANSFER. NO EPISODE OF INJURY, NO CHANGES IN LOC NOTED. BED LOCKED AND IN LOW POSITION. BILATERAL UPPER SIDE RAILS UP.CALL LIGHT WITHIN EASY REACH. WILL CONTINUE TO MONITOR
[2017-10-23] MEDS: APIXABAN 2.5 MG TABLET PO SCH (19:01)
--- NOTE | 2017-10-23 19:26 | NUR ---
MS RN NOTES PATIENT RESTING INSIDE ROOM, AWAKE, ALERT, VERBALLY RESPONSIVE AND RESPONDS TO VERBAL AND TACTILE STIMULI. NO SOB OR ACUTE DISTRESS NOTED AT THIS TIME. DENIES ANY PAIN OR DISCOMFORT. NO CHANGES IN LOC NOTED. PATIENT CALM AND RELAXED. WILL CONTINUE TO MONITOR. RESIDENT KEPT CLEAN, DRY AND COMFORTABLE. PROVIDED WITH CALM, SAFE, HAZARD-FREE ENVIRONMENT. CALL LIGHT PLACED WITHIN EASY REACH
--- NOTE | 2017-10-23 19:30 | NUR ---
RN NOTE; RECEIVED PT IN BED AWAKE AND ALERT. BREATHING EVENLY. NO SOB. NAD .SKIN WARM AND DRY, NO C/O PAIN OR DISCOMFORT ,F/C IN PLACE DRAINING CLEAR YELLOW URINE. NEEDS ATTENDED . BED LOW LOCKED. CALL LIGHT WITHIN REACH. WILL CONT TO MONITOR ,
[2017-10-23 20:00] VITALS: BP 101/57
[2017-10-23] MEDS: DOCUSATE SODIUM 100 MG CAPSULE PO SCH (21:33)
[2017-10-23] MEDS: AZTREONAM 1 G in IV NS 0.9% 100 ML IV SCH (21:33)
--- NOTE | 2017-10-23 23:51 | NUR ---
HELD DILTIAZEM FOR LOW SBP OF 99. WILL CONT TO MONITOR ,
[2017-10-24] MEDS: ACETYLCYSTEINE 10% SOLN 400 MG/4 ML VIAL HHN SCH ×4 (01:14→20:00)
[2017-10-24] MEDS: ALBUTEROL FS 2.5 MG/3 ML VIAL.NEB NEB SCH ×4 (01:14→20:00)
[2017-10-24] MEDS: IPRATROPIUM NEB FS 0.5 MG/2.5 ML AMPUL.NEB NEB SCH ×4 (01:14→20:00)
[2017-10-24] MEDS: LEVOFLOXACIN 750 MG /D5W 150ML 750 MG in PREMIX 1 EA IV SCH (04:05)
[2017-10-24] MEDS: HYDROCODONE/APAP 5/325MG 1 EACH TABLET PO PRN ×3 (04:08→16:43)
--- NOTE | 2017-10-24 04:09 | NUR ---
[place] TW3O TABS GIVEN PER PT'S REQUEST FOR C/O SHOULDER PAIN. WILL CONT TO MONITOR ,
[2017-10-24] MEDS: AZTREONAM 1 G in IV NS 0.9% 100 ML IV SCH ×3 (05:40→21:09)
[2017-10-24] MEDS: DILTIAZEM HCL 30 MG TABLET PO SCH ×4 (06:00→23:32)
--- NOTE | 2017-10-24 07:08 | NUR ---
RN NOTE; PT IN BED SLEEPING, BREATHING EVENLY. W/ INTERMITTENT COUGH ON ONGOING BREATHING TX AND ATB. NO ACUTE EVENT DURING THE NIGHT ,. NEEDS ATTENDED . BED LOW LOCKED. CALL LIGHT WITHIN REACH. WILL CONT TO MONITOR AND WILL ENDORSE TO AM SHIFT FOR JAY.
--- NOTE | 2017-10-24 07:30 | NUR ---
RN MS NOTES PT IN BED, AWAKE, ALERT AND ORIENTED, NO COMPLAINT OF PAIN AT THIS TIME, BREATHING PATTERN REGULAR AND NOT LABORED, CALL LIGHT WITHIN REACH, NEEDS ATTENDED.
[2017-10-24 08:00] VITALS: BP 100/62
[2017-10-24] MEDS: PANTOPRAZOLE 40 MG TABLET.DR PO SCH (08:39)
[2017-10-24] MEDS: LACTOBACILLUS RHAMNOSUS GG 1 EACH CAP.SPRINK PO SCH ×2 (08:39→16:43)
[2017-10-24] MEDS: ZINC SULFATE 220 MG CAPSULE PO SCH (08:39)
[2017-10-24] MEDS: POTASSIUM CHLORIDE 20 MEQ TAB.PRT.SR PO SCH (08:39)
[2017-10-24] MEDS: MULTIVITAMINS,THERAGRAN 1 UDTAB TABLET PO SCH (08:39)
[2017-10-24] MEDS: CALCIUM CARBONATE (1250) 500 MG TABLET PO SCH (08:39)
[2017-10-24] MEDS: predniSONE 20 MG TABLET PO SCH (08:40)
[2017-10-24] MEDS: GABAPENTIN 300 MG CAPSULE PO SCH ×4 (08:40→21:08)
[2017-10-24] MEDS: MAGNESIUM OXIDE 400 MG TABLET PO SCH (08:40)
[2017-10-24] MEDS: DULOXETINE HCL 30 MG CAPSULE.DR PO SCH (08:40)
[2017-10-24] MEDS: FERROUS SULFATE (325 MG) 325 MG/TAB TABLET PO SCH ×2 (08:40→16:43)
[2017-10-24] MEDS: ASCORBIC ACID 500 MG TABLET PO SCH ×3 (08:40→16:43)
[2017-10-24] MEDS: APIXABAN 2.5 MG TABLET PO SCH ×2 (08:45→16:42)
[2017-10-24] MEDS: FUROSEMIDE 20 MG TABLET PO SCH (09:00)
[2017-10-24] MEDS: TRAMADOL HCL 50 MG TABLET PO SCH ×2 (09:00→17:00)
[2017-10-24] MEDS ORDERED: CITALOPRAM HYDROBROMIDE 20 MG TABLET PO SCH (09:00)
[2017-10-24] MEDS: PROSOURCE / PROSTAT (PYXIS) 30 ML UDC PO SCH ×2 (09:12→16:59)
[2017-10-24] MEDS: NYSTATIN/TRIAMCIN CREAM 15 GM TUBE TP SCH ×2 (11:16→21:08)
--- NOTE | 2017-10-24 11:24 | NUR ---
RN MS NOTES PT IN BED, ASLEEP, EASY TO AROUSE, NO COMPLAINT OF PAIN, NOT IN DISTRESS, CALL LIGHT WITHIN REACH, KEPT WARM AND COMFORTABLE.
[2017-10-24 16:00] VITALS: BP 109/69
[2017-10-24] MEDS: MUPIROCIN OINT 2% 22 GM TUBE SCH ×2 (17:52→21:08)
--- NOTE | 2017-10-24 18:26 | NUR ---
RN MS NOTES PT IN BED, RESTING, PAIN MEDICATION GIVEN FOR PAIN MANAGEMENT, PM MEDS GIVEN, ON CONTACT ISOLATION, PM CARE RENDERED, KEPT CLEAN AND COMFORTABLE, CALL LIGHT WITHIN REACH, NEEDS ATTENDED.
--- NOTE | 2017-10-24 19:30 | NUR ---
RN NOTE; RECEIVED PT IN BED AWAKE AND ALERT. BREATHING EVENLY. NO SOB. INTERMITTENT COUGH. REPORTED FEELING BETTER, S.P CATH IN PLACE DRAINING CLEAR YELLOW URINE. DENIED ANY PIN OR DISCOMFORT AT THIS TIME. NEEDS ATTENDED. BED LOW LOCKED. CALL LIGHT WITHIN REACH. WILL CONT TO MONITOR,
[2017-10-24 20:00] VITALS: BP 107/78
[2017-10-24] MEDS: DOCUSATE SODIUM 100 MG CAPSULE PO SCH (21:08)
--- NOTE | 2017-10-24 23:33 | NUR ---
HELD CARDIZEM FOR LOW SBP OF 103. WILL CONT TO MONITOR ,
[2017-10-25] MEDS: ACETYLCYSTEINE 10% SOLN 400 MG/4 ML VIAL HHN SCH ×4 (01:06→19:52)
[2017-10-25] MEDS: IPRATROPIUM NEB FS 0.5 MG/2.5 ML AMPUL.NEB NEB SCH ×4 (01:06→19:52)
[2017-10-25] MEDS: ALBUTEROL FS 2.5 MG/3 ML VIAL.NEB NEB SCH ×4 (01:06→19:52)
[2017-10-25] MEDS: LEVOFLOXACIN 750 MG /D5W 150ML 750 MG in PREMIX 1 EA IV SCH (04:03)
[2017-10-25] MEDS: HYDROCODONE/APAP 5/325MG 1 EACH TABLET PO PRN ×4 (05:09→20:51)
--- NOTE | 2017-10-25 05:10 | NUR ---
[place] 5/325 ONE TABLET GIVEN FOR C/O GENERALIZED BODY PAIN. WILL CONT TO MONITOR, HELD CARDIZEM FOR SBP:105. WILL CONT TO MONITOR,
[2017-10-25] MEDS: DILTIAZEM HCL 30 MG TABLET PO SCH ×3 (05:15→17:54)
[2017-10-25] MEDS: AZTREONAM 1 G in IV NS 0.9% 100 ML IV SCH ×3 (05:43→20:40)
--- NOTE | 2017-10-25 06:20 | NUR ---
RN NOTE PT IN BED SLEEPING, AROUSES EASILY. BREATHING EVENLY. NO ACUTE EVENT DURING THE NIGHT. PAIN MEDICATION GIVEN ORDERED PER PT'S REQUEST , EFFECTIVE. NEEDS ATTENDED. CLEANED AND DRIED. BED LOW LOCKED. CALL LIGHT WITHIN REACH. WILL CONT TO MONITOR ,
[2017-10-25 06:34] LABS: BASOPHILS % (AUTO) 0.2 % (0.0-2.0); EOSINOPHILS # (AUTO) 0.1 /CMM (0.0-0.7); EOSINOPHILS % (AUTO) 1.2 % (0.0-6.0); HEMATOCRIT 35 % (33-45); HEMOGLOBIN 11.8 g/dL (11.5-14.8); LYMPHOCYTES # (AUTO) 1.1 /CMM (0.8-4.8); LYMPHOCYTES % (AUTO) 10.7 % (20.0-44.0); MEAN CORPUSCULAR HEMOGLOBIN 35 PG (26.0-33.0); MEAN CORPUSCULAR HGB CONC 34 g/dl (31.0-36.0); MEAN CORPUSCULAR VOLUME 103 fL (82-100); MONOCYTES # (AUTO) 0.6 /CMM (0.1-1.30); MONOCYTES % (AUTO) 5.4 % (2.0-12.0); NEUTROPHILS # (AUTO) 8.6 /CMM (1.8-8.9); NEUTROPHILS % (AUTO) 82.5 % (43.0-81.0); PLATELET COUNT (AUTO) 166 /CMM (150-450); RDW COEFFICIENT OF VARIATION 14.8 (11.5-15.0); RED BLOOD CELL COUNT(AUTO) 3.37 MIL/uL (4.0-5.2); WHITE BLOOD COUNT (AUTO) 10.4 K/uL (4.3-11.0)
[2017-10-25 07:12] LABS: CALCIUM, SERUM 8.2 mg/dL (8.5-10.1); CARBON DIOXIDE 27 mmol/L (21-32); CHLORIDE 99 mmol/L (98-107); CREATININE 0.4 mg/dL (0.6-1.3); GLUCOSE 120 mg/dL (74-106); MAGNESIUM 1.7 mg/dL (1.8-2.4); PHOSPHORUS 2.7 mg/dL (2.5-4.9); POTASSIUM 4.1 mmol/L (3.5-5.1); SODIUM SERUM 134 mmol/L (136-145); UREA NITROGEN, BLOOD 23 mg/dL (7-18)
--- NOTE | 2017-10-25 07:30 | NUR ---
RN MS NOTES PT IN BED, AWAKE, ALERT AND ORIENTED, NO COMPLAINT OF PAIN AT THIS TIME, BREATHING PATTERN NORMAL, CALL LIGHT WITHIN REACH, ASSISTED WITH MEALS, KEPT WARM AND COMFORTABLE IN BED, SUPRAPUBIC CATH IN PLACE AND DRAINING WELL.
[2017-10-25 08:00] VITALS: BP 109/52
[2017-10-25] MEDS: CALCIUM CARBONATE (1250) 500 MG TABLET PO SCH (08:26)
[2017-10-25] MEDS: DULOXETINE HCL 30 MG CAPSULE.DR PO SCH (08:26)
[2017-10-25] MEDS: GABAPENTIN 300 MG CAPSULE PO SCH ×4 (08:26→20:44)
[2017-10-25] MEDS: LACTOBACILLUS RHAMNOSUS GG 1 EACH CAP.SPRINK PO SCH ×2 (08:26→17:25)
[2017-10-25] MEDS: APIXABAN 2.5 MG TABLET PO SCH ×2 (08:26→17:25)
[2017-10-25] MEDS: PANTOPRAZOLE 40 MG TABLET.DR PO SCH (08:26)
[2017-10-25] MEDS: FERROUS SULFATE (325 MG) 325 MG/TAB TABLET PO SCH ×2 (08:26→17:25)
[2017-10-25] MEDS: MULTIVITAMINS,THERAGRAN 1 UDTAB TABLET PO SCH (08:26)
[2017-10-25] MEDS: ASCORBIC ACID 500 MG TABLET PO SCH ×3 (08:26→17:25)
[2017-10-25] MEDS: POTASSIUM CHLORIDE 20 MEQ TAB.PRT.SR PO SCH (08:26)
[2017-10-25] MEDS: PROSOURCE / PROSTAT (PYXIS) 30 ML UDC PO SCH ×2 (08:26→17:54)
[2017-10-25] MEDS: MAGNESIUM OXIDE 400 MG TABLET PO SCH (08:26)
[2017-10-25] MEDS: predniSONE 20 MG TABLET PO SCH (08:27)
[2017-10-25] MEDS: MUPIROCIN OINT 2% 22 GM TUBE SCH ×2 (08:27→20:44)
[2017-10-25] MEDS: ZINC SULFATE 220 MG CAPSULE PO SCH (08:27)
[2017-10-25] MEDS: FUROSEMIDE 20 MG TABLET PO SCH (09:00)
[2017-10-25] MEDS: TRAMADOL HCL 50 MG TABLET PO SCH ×2 (09:00→17:00)
[2017-10-25] MEDS: NYSTATIN/TRIAMCIN CREAM 15 GM TUBE TP SCH ×2 (09:12→20:44)
[2017-10-25] MEDS: Magnesium 1GM/D5W 100ML PREMIX 100 ML IV SCH ×2 (11:52→12:57)
--- NOTE | 2017-10-25 12:04 | NUR ---
RN MS NOTES PT IN BED, AWAKE, ALERT AND ORIENTED, DENIES PAIN AT THIS TIME, BREATHING PATTERN NORMAL AND NOT LABORED, SEEN BY DR. HERNÁNDEZ AND DR. MOORE, ORDERS NOTED AND CARRIED OUT, CALL LIGHT WITHIN REACH, NEEDS ATTENDED.
[2017-10-25] MEDS: MENTHOL/CETYLPYRD (CEPACOL) 1 LOZ LOZENGE PO PRN ×3 (12:31→20:53)
[2017-10-25 16:00] VITALS: BP 104/57
--- NOTE | 2017-10-25 18:18 | NUR ---
RN MS NOTES PT IN BED, AWAKE, ALERT AND ORIENTED, NO COMPLAINT OF PAIN, BREATHING PATTERN NORMAL, EATING DINNER, CALL LIGHT WITHIN REACH, PM CARE RENDERED, PM MEDS GIVEN ORDERED, ALL NEEDS ATTENDED.
--- NOTE | 2017-10-25 19:20 | NUR ---
ms rn notes received pt in bed, awake, a/o x 3, verbally responsive. no distress, no sob noted. respiration is even and unlabored. denies any pain or discomfort at this time. iv site on rac intact and patent, flushed, no s/s of infiltration noted. pt denies any pain or discomfort at this time. all needs attended and met. kept comfortable. safety precautions observed. call light within reach. will continue to monitor.
[2017-10-25 20:00] VITALS: BP 102/63
[2017-10-25 20:42] VITALS: BP 102/63
[2017-10-25] MEDS: DOCUSATE SODIUM 100 MG CAPSULE PO SCH (21:27)
--- NOTE | 2017-10-26 00:43 | NUR ---
ELICEO NIELSEN FOR LOW BP: 102/56 WILL CONT TO MONITOR
[2017-10-26] MEDS: MENTHOL/CETYLPYRD (CEPACOL) 1 LOZ LOZENGE PO PRN (01:06)
[2017-10-26] MEDS: HYDROCODONE/APAP 5/325MG 1 EACH TABLET PO PRN ×3 (01:08→11:28)
[2017-10-26] MEDS: IPRATROPIUM NEB FS 0.5 MG/2.5 ML AMPUL.NEB NEB SCH ×3 (02:20→14:49)
[2017-10-26] MEDS: ACETYLCYSTEINE 10% SOLN 400 MG/4 ML VIAL HHN SCH ×3 (02:20→14:49)
[2017-10-26] MEDS: ALBUTEROL FS 2.5 MG/3 ML VIAL.NEB NEB SCH ×3 (02:20→14:49)
[2017-10-26] MEDS: AZTREONAM 1 G in IV NS 0.9% 100 ML IV SCH ×2 (04:28→12:45)
[2017-10-26] MEDS: DILTIAZEM HCL 30 MG TABLET PO SCH ×3 (05:52→12:38)
--- NOTE | 2017-10-26 05:52 | NUR ---
HELD [facility] FOR BP: 104/64, HR : 67 WILL CONT TO MONITOR. PT REFUSED TO OFFLOAD HEEL.S, RISK AND BENEFITS EXPLAINED, PT STILL REFUSED. MEPILEX APPLIED. WILL CONT TO MONITOR.
--- NOTE | 2017-10-26 06:48 | NUR ---
ms rn notes pt in bed, resting comfortably at this time, arouses easily, verbally responsive. no distress, no sob noted. respiration is even and unlabored. denies any pain or discomfort at this time. iv site on rac intact and patent, flushed, no s/s of infiltration noted. supra pubic catheter in place, draining with clear yellow urine, no hematuria noted. no c/o pain or discomfort at this time. all needs attended and met. kept comfortable. safety precautions observed. call light within reach. will endorse to next shift for jules.
[2017-10-26 07:13] LABS: BASOPHILS % (AUTO) 0.1 % (0.0-2.0); EOSINOPHILS # (AUTO) 0.1 /CMM (0.0-0.7); EOSINOPHILS % (AUTO) 1.8 % (0.0-6.0); HEMATOCRIT 33 % (33-45); HEMOGLOBIN 11.3 g/dL (11.5-14.8); LYMPHOCYTES # (AUTO) 1.7 /CMM (0.8-4.8); LYMPHOCYTES % (AUTO) 21.5 % (20.0-44.0); MEAN CORPUSCULAR HEMOGLOBIN 35 PG (26.0-33.0); MEAN CORPUSCULAR HGB CONC 34 g/dl (31.0-36.0); MEAN CORPUSCULAR VOLUME 101 fL (82-100); MONOCYTES # (AUTO) 0.7 /CMM (0.1-1.30); MONOCYTES % (AUTO) 8.7 % (2.0-12.0); NEUTROPHILS # (AUTO) 5.3 /CMM (1.8-8.9); NEUTROPHILS % (AUTO) 67.9 % (43.0-81.0); PLATELET COUNT (AUTO) 177 /CMM (150-450); RDW COEFFICIENT OF VARIATION 14.7 (11.5-15.0); RED BLOOD CELL COUNT(AUTO) 3.29 MIL/uL (4.0-5.2); WHITE BLOOD COUNT (AUTO) 7.8 K/uL (4.3-11.0)
[2017-10-26 07:25] LABS: CALCIUM, SERUM 7.9 mg/dL (8.5-10.1); CARBON DIOXIDE 29 mmol/L (21-32); CHLORIDE 104 mmol/L (98-107); CREATININE 0.5 mg/dL (0.6-1.3); GLUCOSE 107 mg/dL (74-106); MAGNESIUM 1.9 mg/dL (1.8-2.4); PHOSPHORUS 2.6 mg/dL (2.5-4.9); POTASSIUM 4.3 mmol/L (3.5-5.1); SODIUM SERUM 137 mmol/L (136-145); UREA NITROGEN, BLOOD 26 mg/dL (7-18)
[2017-10-26] MEDS ORDERED: IPRATROPIUM NEB FS 0.5 MG/2.5 ML AMPUL.NEB ONE (07:59)
[2017-10-26] MEDS ORDERED: ALBUTEROL FS 2.5 MG/3 ML VIAL.NEB ONE (07:59)
[2017-10-26 08:00] VITALS: BP 144/80
[2017-10-26] MEDS ORDERED: ACETYLCYSTEINE 10% SOLN 400 MG/4 ML VIAL ONE (08:00)
--- NOTE | 2017-10-26 08:00 | NUR ---
MS RN NOTES PATIENT RECEIVED RESTING INSIDE ROOM, AROUSABLE THROUGH VERBAL AND TACTILE STIMULI. PATIENT ALERT AND ORIENTED. ABLE TO MAKE NEEDS KNOWN AND FOLLOW SIMPLE INSTRUCTIONS. BREATHING EVEN AND UNLABORED. NO SOB OR DISTRESS NOTED AT THIS TIME. BED IN LOW POSITION, BILATERAL UPPER SIDE RAILS UP AND LOCKED. WILL CONTINUE TO MONITOR
[2017-10-26] MEDS ORDERED: LEVOFLOXACIN (750 MG) 750 MG TABLET PO SCH (09:00)
[2017-10-26] MEDS: LACTOBACILLUS RHAMNOSUS GG 1 EACH CAP.SPRINK PO SCH (09:25)
[2017-10-26] MEDS: FUROSEMIDE 20 MG TABLET PO SCH (09:29)
[2017-10-26] MEDS: GABAPENTIN 300 MG CAPSULE PO SCH ×2 (09:29→12:36)
[2017-10-26] MEDS: FERROUS SULFATE (325 MG) 325 MG/TAB TABLET PO SCH (09:29)
[2017-10-26] MEDS: CALCIUM CARBONATE (1250) 500 MG TABLET PO SCH (09:29)
[2017-10-26] MEDS: MULTIVITAMINS,THERAGRAN 1 UDTAB TABLET PO SCH (09:29)
[2017-10-26] MEDS: ASCORBIC ACID 500 MG TABLET PO SCH ×2 (09:29→12:36)
[2017-10-26] MEDS: ZINC SULFATE 220 MG CAPSULE PO SCH (09:29)
[2017-10-26] MEDS: MAGNESIUM OXIDE 400 MG TABLET PO SCH (09:29)
[2017-10-26] MEDS: PANTOPRAZOLE 40 MG TABLET.DR PO SCH (09:29)
[2017-10-26] MEDS: predniSONE 20 MG TABLET PO SCH (09:29)
[2017-10-26] MEDS: DULOXETINE HCL 30 MG CAPSULE.DR PO SCH (09:29)
[2017-10-26] MEDS: TRAMADOL HCL 50 MG TABLET PO SCH (09:30)
[2017-10-26] MEDS: POTASSIUM CHLORIDE 20 MEQ TAB.PRT.SR PO SCH (09:30)
[2017-10-26] MEDS: PROSOURCE / PROSTAT (PYXIS) 30 ML UDC PO SCH (09:31)
[2017-10-26] MEDS: MUPIROCIN OINT 2% 22 GM TUBE SCH (09:31)
[2017-10-26] MEDS: NYSTATIN/TRIAMCIN CREAM 15 GM TUBE TP SCH (09:31)
[2017-10-26] MEDS: APIXABAN 2.5 MG TABLET PO SCH (09:31)
[2017-10-26 12:38] VITALS: BP 120/72
--- NOTE | 2017-10-26 13:00 | NUR ---
MS RN NOTES PATIENT WITH ORDER TO DISCHARGE, TRANSF[facility] TO [facility] [place]. ORDER NOTED AND CARRIED OUT.
--- NOTE | 2017-10-26 14:50 | NUR ---
MS RN NOTES PL[facility] CALL [facility], SPOKE WITH DEB RN AND GAVE REPORT
--- NOTE | 2017-10-26 16:00 | NUR ---
MS RN NOTES PATIENT PICKED UP BY 2 principal technical specialist FROM [facility], LEFT UNIT IN STABLE CONDITION, BREATHING EVEN AND UNLABORED. NO SOB OR CONGESTION. IV IN PLACE ON RIGHT AC, NO SWELLING OR DISCOLORATION NOTED. PATIENT DENIES ANY PAIN OR DISCOMFORT. NO BELONGINGS BROUGHT NOR TAKEN. PATIENT ASSISTED DURING TRANSFER. NO EPISODE OF FALL OR INJURY DURING DISCHARGE.
== END 2017-10-26 16:00 | DRG 177 ==
LOC: ER 02:34 → TELE 04:14 → MED 08:47 → MEDSG2 19:20
PROVIDERS: ADMIT Nurse Practitioner Acute Care; ATTEND Internal Medicine
DX: J15.6 Pneumonia due to other Gram-negative bacteria (principal); J96.91 Respiratory failure, unspecified with hypoxia; I82.502 Chronic embolism and thrombosis of unspecified deep veins of left lower extremity; N39.0 Urinary tract infection, site not specified; E66.2 Morbid (severe) obesity with alveolar hypoventilation; J44.0 Chronic obstructive pulmonary disease with (acute) lower respiratory infection; J44.1 Chronic obstructive pulmonary disease with (acute) exacerbation; J98.11 Atelectasis; I48.0 Paroxysmal atrial fibrillation; F03.90 Unspecified dementia, unspecified severity, without behavioral disturbance, psychotic disturbance, mood disturbance, and anxiety; I10 Essential (primary) hypertension; I25.10 Atherosclerotic heart disease of native coronary artery without angina pectoris; J98.4 Other disorders of lung; L30.4 Erythema intertrigo; Z87.891 Personal history of nicotine dependence; Z88.0 Allergy status to penicillin; Z68.22 Body mass index [BMI] 22.0-22.9, adult; L98.8 Other specified disorders of the skin and subcutaneous tissue; Z79.01 Long term (current) use of anticoagulants; G14 Postpolio syndrome; M81.0 Age-related osteoporosis without current pathological fracture; B95.61 Methicillin susceptible Staphylococcus aureus infection as the cause of diseases classified elsewhere
CPT/HCPCS: 36415; 36600; 71045-TC; 80048-TC; 80076-TC; 81000-TC; 82803-TC; 83605-TC; 83735-TC; 83880; 84100-TC; 84484-TC; 85025-TC; 85730-TC; 87040-TC; 87081-TC; 87086-TC; 87400; 94799-TC; A4216; A4606; J1956; J3370; J3475; J3490; J7030; J7060; Z7610